=== PATIENT | female | born 1995 ===

== ENCOUNTER 2018-10-10 10:37 | Inpatient (IN) | payer OTHER, BC ==
[~2018-10-10] VITALS: Ht 157.5 cm; Wt 87.2 kg
[2018-10-10] MEDS ORDERED: BISA5TAB8 PO (12:02)
[2018-10-10] MEDS ORDERED: APIX2.5T PO (12:02)
[2018-10-10] MEDS ORDERED: ACET325T38 PO (12:02)
[2018-10-10] MEDS ORDERED: POLY17PO6 PO (12:02)
[2018-10-10] MEDS ORDERED: OXC5T PO (12:02)
[2018-10-10] MEDS ORDERED: DOCU-143 PO (12:02)
[2018-10-10] MEDS ORDERED: SENN-141 PO (12:02)
--- NOTE | 2018-10-10 12:04 | NUR ---
UPDATED MED REC WITH THE LIST OF MEDICATIONS ON THE INPATIENT PATIENT SUMMARY REPORT TUBED TO ME BY MAY. WILL UPDATE THE LIST TO WHAT THE PATIENT WAS TAKING AT HOME PRIOR TO BEING DISCHARGED FROM [facility] AT A LATER DATE FOR PROPER DISCHARGE TO HOME ORDERS. Addendum: 10/11/18 at 1123 by TERA CASTILLO [facility] I SET THE PROFILE TO NO MEDICATIONS AT THIS TIME. THERE IS NO EXT MED HX ON THE PATIENT. THE ORDERS FROM [facility] SIMPLY STATE ACTIVE MEDICATION LIST. IT IS UNCLEAR IF THEY WERE ALL NEWLY STARTED MEDICATIONS AT THAT VISIT OR IF ANY WERE CONTINUED FROM HOME BUT IT APPEARS MOST ARE OTC OR UNIQUE TO THIS RECENT ADMISSION.
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
[2018-10-10 14:50] VITALS: BP 126/82
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
[2018-10-10 17:18] VITALS: BP 126/82
[2018-10-10 18:00] VITALS: BP 121/82
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
[2018-10-10] MEDS: ACETAMINOPHEN 325 MG TABLET PO SCH ×2 (18:23→23:00)
[2018-10-10] MEDS: POLYETHYLENE GLYCOL 17 GM (MIRALAX) PACK PO SCH (20:43)
[2018-10-10] MEDS: DOCUSATE SODIUM 100 MG (COLACE) CAP PO SCH (20:47)
[2018-10-10] MEDS: APIXABAN 2.5 MG (ELIQUIS) TABLET PO SCH (20:47)
[2018-10-10] MEDS: SENNOSIDES 8.6 MG (SENOKOT) TAB PO SCH (20:48)
[2018-10-10] MEDS ORDERED: SENNOSIDES PO SCH (21:00)
[2018-10-10] MEDS ORDERED: NON-FORMULARY MEDICATION 1 EA EA (Polyethylene Glycol 3350 (Miralax) 17 GM) PO SCH (21:00)
[2018-10-11] MEDS: ACETAMINOPHEN 325 MG TABLET PO SCH ×3 (05:22→18:04)
[2018-10-11 06:19] VITALS: BP 109/72
[2018-10-11 06:45] LABS: BASOPHILS % (AUTO) 0 % (0-10); EOSINOPHILS # (AUTO) 0.2 10^3/uL (0.0-0.3); EOSINOPHILS % (AUTO) 3 % (0-10); HEMATOCRIT 33 % (35-52); LYMPHOCYTES # (AUTO) 2.1 X 10^3 (1.0-4.0); LYMPHOCYTES % (AUTO) 29 % (12-44); MEAN CORPUSCULAR HEMOGLOBIN 28 PG (25-34); MEAN CORPUSCULAR HGB CONC 34 G/DL (32-36); MEAN CORPUSCULAR VOLUME 85 FL (80-99); MEAN PLATELET VOLUME 9.7 FL (7.4-10.4); MONOCYTES # (AUTO) 0.5 X 10^3 (0.0-1.0); MONOCYTES % (AUTO) 8 % (0-12); NEUTROPHILS # (AUTO) 4.3 X 10^3 (1.8-7.8); NEUTROPHILS % (AUTO) 60 % (42-75); PLATELET COUNT 370 10^3/uL (130-400); RED CELL DISTRIBUTION WIDTH 13.3 % (10.0-14.5); WHITE BLOOD COUNT 7.1 10^3/uL (4.3-11.0)
[2018-10-11 07:08] LABS: ALANINE AMINOTRANSFERASE 32 U/L (0-55); ALBUMIN 3.4 GM/DL (3.2-4.5); ALKALINE PHOSPHATASE 62 U/L (40-136); BILIRUBIN,TOTAL 0.5 MG/DL (0.1-1.0); BUN/CREATININE RATIO 19; CALCIUM 8.8 MG/DL (8.5-10.1); CARBON DIOXIDE 18 MMOL/L (21-32); CHLORIDE 108 MMOL/L (98-107); CREATININE SERUM 0.59 MG/DL (0.60-1.30); GFR ESTIMATED > 60; GLUCOSE 83 MG/DL (70-105); POTASSIUM 4.1 MMOL/L (3.6-5.0); SODIUM 137 MMOL/L (135-145); TOTAL PROTEIN 6.3 GM/DL (6.4-8.2)
[2018-10-11] MEDS: SENNOSIDES 8.6 MG (SENOKOT) TAB PO SCH ×2 (09:00→21:05)
[2018-10-11] MEDS: POLYETHYLENE GLYCOL 17 GM (MIRALAX) PACK PO SCH ×2 (09:00→21:05)
[2018-10-11] MEDS: BISACODYL 5 MG (DULCOLAX) TABLET PO SCH (09:00)
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
--- NOTE | 2018-10-11 09:25 | Occupational Ther Daily Note ---
OT Current Status-Daily Note Subjective Pt seen in bed, awake and oriented. Pt stated did not sleep well due to positioning last night, stated no pain this morning. Pain increased to 5/10 when walking. Pt agreed to therapy OT tx. Mental Status/Objective Patient Orientation: Normal For Age Therapy Code Descriptions/Definitions Functional [place] Measure: 0=Not Assessed/NA 4=Minimal Assistance 1=Total Assistance 5=Supervision or Setup 2=Maximal Assistance 6=Modified [place] 3=Moderate Assistance 7=Complete [place] ADL-Treatment Pt completed shower at this date. Pt gathered clothing from bed, able to ambulate with SBA. Pt expressed concerns of open wounds, as bandages were removed before shower with instructions from nursing to cleanse with soap and water. Pt expressed wooziness toward open wounds, desiring for clothing to not touch wounds while doffing/ donning. Therapy Code Descriptions/Definitions Functional [place] Measure: 0=Not Assessed/NA 4=Minimal Assistance 1=Total Assistance 5=Supervision or Setup 2=Maximal Assistance 6=Modified [place] 3=Moderate Assistance 7=Complete [place] Therapy Quality Codes: 6 Independent with activity with or without an assistive device 5 Patient requires set up or clean up by helper. Patient completes activity by themselves 4 Supervision or touching assist (CGA). [place] provide cues , steadying assist 3 The helper provides less than half the effort to complete the activity 2 The helper provides more than half the effort to complete the activity 1 Dependent. The helper does all the effort to complete an activity 7 Patient refused to complete or attempt activity 9 The patient did not perform the activity before the current illness or injury 88 Not attempted due to Medical conditions or safety concerns Eating (FIM): 7 (Pt ate breakfast prior to OT session.) Eating (QC): 6 Bathing (FIM): 3 (Mod A for LE washing for thoroughness of wounds. Pt completed LE showeing utlizing long handled sponge.) Upper Body (FIM): 4 (Pt required min A for adjusting bra and gathering materials from sink.) Upper Body Dressing (QC): 3 Lower Body Dressing (FIM): 3 (Pt required mod A for donning LE dressing, utilized dressing stick and bellman for LE donning.) Lower Body Dressing (QC): 3 Toileting (FIM): 3 (required assist for LE dressing doffing) Toileting Hygiene (QC): 5 Transfers (B, C, W/C) (FIM): 5 (SBA for safety) Toilet/Commode Transfer (FIM): 5 (Required SBA during tx) Toilet Transfer (QC): 4 (SBA due to safety and c/o pain during waking) Tub Transfer(FIM): 4 (Pt required cueing and physical assist for L LE for safe transfer utilizing tub bench.) Other Treatment Pt educated on adaptive techniques for dressing, including the use of bellman and dressing stick for doffing/ donning LE clothing. Pt stated concern for wounds, requiring increased assist for LE dressing. Pt able to dry UB IND, required mod A for drying LE. Pt's nurse notified of shower completion, pt's nurse applied bandages to wounds prior to LE donning. Pt walked with FWW to chair, call light within reach. All needs met. Education OT Patient Education: Correct positioning, Energy conservation, Purpose of tx/functional activities, Reviewed precautions, Rehab process, Safety issues, Transfer techniques, Use of adapted equipment Teaching Recipient: Patient Teaching Methods: Demonstration, Discussion Response to Teaching: Verbalize Understanding, Return Demonstration (Pt educated on adaptive tequniques, demonstrating understanding but requiring increased assist due to wounds. Nursing notified of shower completion, wounds covered before donning LE dressing.) OT Short Term Goals Short Term Goals Eating(FIM): 7 Grooming(FIM): 6 Bathing(FIM): 4 Upper Body Dressing(FIM): 3 Lower Body Dressing(FIM): 3 Toileting(FIM): 4 Transfers (B,C,W/C) (FIM): 5 Toilet/Commode Transfer(FIM): 6 Tub Transfer(FIM): 5 Shower Transfer(FIM): 5 Additional Short Term Goals: 1-Demonstrate ADL Tasks, 2-Verbalize Understanding, 3-ImproveStrength/Tye 1=Demonstrate adherence to instructed precautions during ADL tasks. 2=Patient will verbalize/demonstrate understanding of assistive d evices/modifications for ADL. 3=Patient will improve strength/tolerance for activity to enable patient to perform ADL's. OT Fisheries Technical Officer Goals [facility] Goals Time Frame: Oct 31, 2018 Eating (FIM): 7 Eating (QC): 6 Groomin Oral Hygiene (QC): 6 Bathing(FIM): 7 Shower/Bathe Self (QC): 6 Upper Body Dressing(FIM): 7 Upper Body Dressing (QC): 6 Lower Body Dressing(FIM): 7 Lower Body Dressing (QC): 6 On/Off Footwear (QC): 6 Toileting(FIM): 7 Toileting Hygiene (QC): 6 Transfers (B,C,W/C) (FIM): 6 Toilet/Commode Transfer(FIM): 6 Toilet/Commode Transfer (QC): 6 Tub Transfer(FIM): 6 Shower Transfer(FIM): 6 Comprehension(FIM): 6 Expression (FIM): 6 Social Interaction(FIM): 6 Problem Solving(FIM): 6 Memory(FIM): 6 Additional Goals: 1-Demonstrate ADL Tasks, 2-Verbalize Understanding, 3- ImproveStrength/Tye 1=Demonstrate adherence to instructed precautions during ADL tasks. 2=Patient will verbalize/demonstrate understanding of assistive devices/modifications for ADL. 3=Patient will improve strength/tolerance for activity to enable patient to perform ADL's. OT Education/Plan Problem List/Assessment Assessment: Decreased Activ Tolerance, Impaired Bed Mobility, Impaired Coordination, Impaired Funct Balance, Impaired I ADL's, Impaired Self-Care Skills Pt presents will functional limitations affecting areas of ADLs and functional mobility with the above mentioned deficits. Pt will benefit from skilled OT services to increase independence with daily activities and safe transition to home. Discharge Recommendations Plan/Recommendations: Continue POC Therapy Discharge Recommendati: Other, See Comments Treatment Plan/Plan of Care Treatment,Training & Education: Yes Patient would benefit from OT for education, treatment and training to promote independence in ADL's, mobility, safety and/or upper extremity function for ADL's. Plan of Care: ADL Retraining, Caregiver Training, Functional Mobility, Group Exercise/Act as Ind, UE Funct Exercise/Act Treatment Duration: Oct 31, 2018 Frequency: At least 5 of 7 days/Wk (IRF) Estimated Hrs Per Day: 1 hour per day (60-90 minutes) Agreement: Yes Rehab Potential: Good Time/GCodes Start Time: 08:00 Stop Time: 09:15 Total Time Billed (hr/min): 45 Billed Treatment Time 1 ADL 75 SHIRLEY ARIAS OTR Oct 11, 2018 09:25
[2018-10-11] MEDS: APIXABAN 2.5 MG (ELIQUIS) TABLET PO SCH ×2 (09:31→21:04)
[2018-10-11] MEDS: DOCUSATE SODIUM 100 MG (COLACE) CAP PO SCH ×2 (09:31→21:04)
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
--- NOTE | 2018-10-11 13:04 | Occupational Ther Daily Note ---
OT Current Status-Daily Note Subjective Pt seen sitting in chair, 4/10 pain stated through back/ hip. Pt agreed to OT tx session focusing on laundry routine and AE for daily activities. Mental Status/Objective Patient Orientation: Normal For Age Therapy Code Descriptions/Definitions Functional [place] Measure: 0=Not Assessed/NA 4=Minimal Assistance 1=Total Assistance 5=Supervision or Setup 2=Maximal Assistance 6=Modified [place] 3=Moderate Assistance 7=Complete [place] ADL-Treatment Therapy Code Descriptions/Definitions Functional [place] Measure: 0=Not Assessed/NA 4=Minimal Assistance 1=Total Assistance 5=Supervision or Setup 2=Maximal Assistance 6=Modified [place] 3=Moderate Assistance 7=Complete [place] Therapy Quality Codes: 6 Independent with activity with or without an assistive device 5 Patient requires set up or clean up by helper. Patient completes activity by themselves 4 Supervision or touching assist (CGA). [place] provide cues , steadying assist 3 The helper provides less than half the effort to complete the activity 2 The helper provides more than half the effort to complete the activity 1 Dependent. The helper does all the effort to complete an activity 7 Patient refused to complete or attempt activity 9 The patient did not perform the activity before the current illness or injury 88 Not attempted due to Medical conditions or safety concerns Lower Body Dressing (FIM): 5 (Pt educated on sock sukhdev. Pt required min cues on process and completion to don socks. ) Lower Body Dressing (QC): 4 (Cues required for sock donning.) On/Off Footwear (QC): 4 (Cues for sock sukhdev) Other Treatment Pt gathered dirty clothing items with half section ironer, pt ambulated with FWW with SBA to laundry room. Pt completed washing machine prep and completion with min A for nozzles due to novelty of machine. Pt utilized FWW with good safety awareness to room, pt sat in chair with call light in reach. All needs met. Education OT Patient Education: Purpose of tx/functional activities, Safety issues, Use of adapted equipment Teaching Recipient: Patient Teaching Methods: Demonstration, Discussion Response to Teaching: Verbalize Understanding, Return Demonstration Pt completed with min verbal/ visual cues for sock donning. OT Short Term Goals Short Term Goals Eating(FIM): 7 Grooming(FIM): 6 Bathing(FIM): 4 Upper Body Dressing(FIM): 3 Lower Body Dressing(FIM): 3 Toileting(FIM): 4 Transfers (B,C,W/C) (FIM): 5 Toilet/Commode Transfer(FIM): 6 Tub Transfer(FIM): 5 Shower Transfer(FIM): 5 Additional Short Term Goals: 1-Demonstrate ADL Tasks, 2-Verbalize Understanding, 3-ImproveStrength/Tye 1=Demonstrate adherence to instructed precautions during ADL tasks. 2=Patient will verbalize/demonstrate understanding of assistive devices/modifications for ADL. 3=Patient will improve strength/tolerance for activity to enable patient to perform ADL's. OT Fdc Goals Investigator Utility Bill Complaints Goals Time Frame: Oct 31, 2018 Eating (FIM): 7 Eating (QC): 6 Groomin Oral Hygiene (QC): 6 Bathing(FIM): 7 Shower/Bathe Self (QC): 6 Upper Body Dressing(FIM): 7 Upper Body Dressing (QC): 6 Lower Body Dressing(FIM): 7 Lower Body Dressing (QC): 6 On/Off Footwear (QC): 6 Toileting(FIM): 7 Toileting Hygiene (QC): 6 Transfers (B,C,W/C) (FIM): 6 Toilet/Commode Transfer(FIM): 6 Toilet/Commode Transfer (QC): 6 Tub Transfer(FIM): 6 Shower Transfer(FIM): 6 Comprehension(FIM): 6 Expression (FIM): 6 Social Interaction(FIM): 6 Problem Solving(FIM): 6 Memory(FIM): 6 Additional Goals: 1-Demonstrate ADL Tasks, 2-Verbalize Understanding, 3- ImproveStrength/Tye 1=Demonstrate adherence to instructed precautions during ADL tasks. 2=Patient will verbalize/demonstrate understanding of assistive devices/modifications for ADL. 3=Patient will improve strength/tolerance for activity to enable patient to perform ADL's. OT Education/Plan Problem List/Assessment Assessment: Decreased Activ Tolerance, Impaired Funct Balance, Impaired I ADL's, Impaired Self-Care Skills Pt presents will functional limitations affecting areas of ADLs and functional mobility with the above mentioned deficits. Pt will benefit from skilled OT services to increase independence with daily activities and safe transition to home. Discharge Recommendations Plan/Recommendations: Continue POC Treatment Plan/Plan of Care Treatment,Training & Education: Yes Patient would benefit from OT for education, treatment and training to promote independence in ADL's, mobility, safety and/or upper extremity function for ADL's. Plan of Care: ADL Retraining, Caregiver Training, Functional Mobility, Group Exercise/Act as Ind, UE Funct Exercise/Act Treatment Duration: Oct 31, 2018 Frequency: At least 5 of 7 days/Wk (IRF) Estimated Hrs Per Day: 1 hour per day (60-90 minutes) Agreement: Yes Rehab Potential: Good Time/GCodes Start Time: 11:50 Stop Time: 12:15 Total Time Billed (hr/min): 25 Billed Treatment Time 1 ADL 10 FA 15 SHIRLEY ARIAS OTR Oct 11, 2018 13:04
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
--- NOTE | 2018-10-11 14:32 | Physical Therapy Daily Note ---
PT Daily Note-Current Subjective Agreeable to PT. No complaints. Transfers Therapy Code Descriptions/Definitions Functional [place] Measure: 0=Not Assessed/NA 4=Minimal Assistance 1=Total Assistance 5=Supervision or Setup 2=Maximal Assistance 6=Modified [place] 3=Moderate Assistance 7=Complete [place] Therapy Quality Codes: 6 Independent with activity with or without an assistive device 5 Patient requires set up or clean up by helper. Patient completes activity by themselves 4 Supervision or touching assist (CGA). [place] provide cues , steadying assist 3 The helper provides less than half the effort to complete the activity 2 The helper provides more than half the effort to complete the activity 1 Dependent. The helper does all the effort to complete an activity 7 Patient refused to complete or attempt activity 9 The patient did not perform the activity before the current illness or injury 88 Not attempted due to Medical conditions or safety concerns Weight Bearing Right Lower Extremity: Right Weight Bearing/Tolerated Left Lower Extremity: Left Weight Bearing/Tolerated Treatments Sit to stand x 4 reps with CGA with cues for sequencing. Pt ambulated 150 ft x 2 wih FWW with SB-CGA. Skilled cues for foot clearance and safety. Assessment Current Status: Good Progress PT Short Term Goals Short Term Goals Time Frame: Oct 18, 2018 Transfers (B,C,W/C) (FIM): 5 Gait (FIM): 4 Distance (FIM): 3=150 ft Gait Assistive Device: Cane Single Point PT [employer] Det[employer] Draftsperson Goals Nursing Home Goals PT Nursing Home Goals Time Frame: Oct 25, 2018 Transfers (B,C,W/C) (FIM): 7 Sit to Lying (QC): 6 Lying-Sitting on Side/Bed(QC): 6 Sit to Stand (QC): 6 Roll Left to Right (QC): 6 Chair/Rcw-em-Xstxh Xfer(QC): 6 Car Transfer (QC): 6 Does the Patient Walk: Yes Gait (FIM): 6 Gait distance (FIM): 3=150 ft Walk 10 feet (QC): 6 Walk 10ft-Uneven Surface(QC): 6 Walk 50ft with 2 Turns (QC): 6 Walk 150 ft (QC): 6 Gait Level of Assist: 6 Gait Assistive Device: Cane Single Point (or least restrictive safe device) Does the Pt use WC or Scooter?: No Stairs (FIM): 6 # of Steps: 12 1 Step (curb) (QC): 6 4 Steps (QC): 6 12 Steps (QC): 6 Picking up an Object (QC): 88 PT Plan Problem List Problem List: Activity Tolerance, Functional Strength, Safety Treatment/Plan Treatment Plan: Continue Plan of Care Treatment Plan: Bed Mobility, Education, Functional Activity Tye, Functional Strength, Group Therapy, Gait, Safety, Therapeutic Exercise, Transfers Treatment Duration: Oct 25, 2018 Frequency: At least 5 of 7 days/Wk (IRF) Estimated Hrs Per Day: 1.5 hours per day Patient and/or Family Agrees t: Yes Safety Risks/Education Patient Education: Transfer Techniques Teaching Recipient: Patient Teaching Methods: Discussion Response to Teaching: Return Demonstration Time/GCodes Time In: 1300 Time Out: 1320 Total Billed Treatment Time: 20 Total Billed Treatment visit GT 20 SUSY CURRAN PT Oct 11, 2018 14:31
[2018-10-11 17:32] VITALS: BP 123/80
--- NOTE | 2018-10-11 19:14 | NUR ---
bedside report received from GREG BO, assume care of pt
--- NOTE | 2018-10-11 21:00 | NUR ---
assessments & interventions completed, see assessments & interventions, up in the chair
--- NOTE | 2018-10-11 21:04 | NUR ---
refused neva & Jami, took Colace
[2018-10-12] MEDS: ACETAMINOPHEN 325 MG TABLET PO SCH ×5 (00:20→23:17)
--- NOTE | 2018-10-12 00:20 | NUR ---
scheduled Tylenol 650mg po given, pain level 6/10 on numeric scale
--- NOTE | 2018-10-12 00:55 | NUR ---
resting quietly in bed, pain level 0/10 on flacc scale
--- NOTE | 2018-10-12 06:00 | NUR ---
given scheduled Tylenol 650mg pain level 6/10 on numeric scale
--- NOTE | 2018-10-12 06:40 | NUR ---
rates pain level 2/10 on numeric scale
[2018-10-12 06:45] VITALS: BP 118/77
--- NOTE | 2018-10-12 07:14 | NUR ---
bedside report given to SAM BO
--- NOTE | 2018-10-12 08:28 | Occupational Ther Daily Note ---
OT Current Status-Daily Note Subjective Pt seen in chair, alert and finishing breakfast. Pt said better night's rest. Pt stated 5/10 pain in L leg during sit and during walking. Nursing notified. Pt agreed to OT tx session. Mental Status/Objective Patient Orientation: Normal For Age Therapy Code Descriptions/Definitions Functional [place] Measure: 0=Not Assessed/NA 4=Minimal Assistance 1=Total Assistance 5=Supervision or Setup 2=Maximal Assistance 6=Modified [place] 3=Moderate Assistance 7=Complete [place] ADL-Treatment Therapy Code Descriptions/Definitions Functional [place] Measure: 0=Not Assessed/NA 4=Minimal Assistance 1=Total Assistance 5=Supervision or Setup 2=Maximal Assistance 6=Modified [place] 3=Moderate Assistance 7=Complete [place] Therapy Quality Codes: 6 Independent with activity with or without an assistive device 5 Patient requires set up or clean up by helper. Patient completes activity by themselves 4 Supervision or touching assist (CGA). [place] provide cues , steadying assist 3 The helper provides less than half the effort to complete the activity 2 The helper provides more than half the effort to complete the activity 1 Dependent. The helper does all the effort to complete an activity 7 Patient refused to complete or attempt activity 9 The patient did not perform the activity before the current illness or injury 88 Not attempted due to Medical conditions or safety concerns Eating (FIM): 7 (Pt ordered and ate food with IND) Eating (QC): 6 Grooming (FIM): 7 (Pt gathered hair brush and brushed IND) Bathing (FIM): 4 (Pt required min A for LE/ kourtney area thoroughness) Upper Body (FIM): 5 (Pt completed UE dress with s/u.) Upper Body Dressing (QC): 5 (Pt completed with s/u) Lower Body Dressing (FIM): 2 (Pt required max A for threading BLE into pants due to tightness of pants. Pt completed undergarment donning with mod I with lathe winder.) Lower Body Dressing (QC): 2 Toileting (FIM): 3 (Pt required assist with BM hygiene) Toileting Hygiene (QC): 3 Transfers (B, C, W/C) (FIM): 5 (SBA with cues for safety/ proper techniques to maintain >90* hip flexion) Toilet/Commode Transfer (FIM): 5 (SBA and cues for precautions) Toilet Transfer (QC): 4 Other Treatment Pt completed sit to stand from chair using FWW. Pt stated pain while standing in L LE, a "stretch". Pt ambulated to bathroom, transfers with SBA due to pain and safety with cues for precautions. Pt left in room in chair, call light in reach, all needs met. Education OT Patient Education: Correct positioning, Energy conservation, Modified ADL techniques, Purpose of tx/functional activities, Reviewed precautions, Rehab process, Safety issues, Transfer techniques Teaching Recipient: Patient Teaching Methods: Demonstration, Discussion Response to Teaching: Verbalize Understanding, Return Demonstration Pt educated on sleeping routine and proper sit to stand techniques to maintain less than 90* hip flexion. Pt educated of back precautions, as pt was seen with L leg bend at ~120* toward chest. Pt demonstrated understanding verbally. OT Short Term Goals Short Term Goals Eating(FIM): 7 Grooming(FIM): 6 Bathing(FIM): 4 Upper Body Dressing(FIM): 3 Lower Body Dressing(FIM): 3 Toileting(FIM): 4 Transfers (B,C,W/C) (FIM): 5 Toilet/Commode Transfer(FIM): 6 Tub Transfer(FIM): 5 Shower Transfer(FIM): 5 Additional Short Term Goals: 1-Demonstrate ADL Tasks, 2-Verbalize Understanding, 3-ImproveStrength/Tye 1=Demonstrate adherence to instructed precautions during ADL tasks. 2=Patient will verbalize/demonstrate understanding of assistive devices/modifications for ADL. 3=Patient will improve strength/tolerance for activity to enable patient to perform ADL's. OT Alf Goals Alf Goals Time Frame: Oct 31, 2018 Eating (FIM): 7 Eating (QC): 6 Groomin Oral Hygiene (QC): 6 Bathing(FIM): 7 Shower/Bathe Self (QC): 6 Upper Body Dressing(FIM): 7 Upper Body Dressing (QC): 6 Lower Body Dressing(FIM): 7 Lower Body Dressing (QC): 6 On/Off Footwear (QC): 6 Toileting(FIM): 7 Toileting Hygiene (QC): 6 Transfers (B,C,W/C) (FIM): 6 Toilet/Commode Transfer(FIM): 6 Toilet/Commode Transfer (QC): 6 Tub Transfer(FIM): 6 Shower Transfer(FIM): 6 Comprehension(FIM): 6 Expression (FIM): 6 Social Interaction(FIM): 6 Problem Solving(FIM): 6 Memory(FIM): 6 Additional Goals: 1-Demonstrate ADL Tasks, 2-Verbalize Understanding, 3- ImproveStrength/Tye 1=Demonstrate adherence to instructed precautions during ADL tasks. 2=Patient will verbalize/demonstrate understanding of assistive devices/modifications for ADL. 3=Patient will improve strength/tolerance for activity to enable patient to perform ADL's. OT Education/Plan Problem List/Assessment Assessment: Decreased Activ Tolerance, Decreased UE Strength, Impaired Funct Balance, Impaired I ADL's, Impaired Self-Care Skills Pt presents will functional limitations affecting areas of ADLs and functional mobility with the above mentioned deficits. Pt will benefit from skilled OT services to increase independence with daily activities and safe transition to home. Discharge Recommendations Plan/Recommendations: Continue POC Treatment Plan/Plan of Care Treatment,Training & Education: Yes Patient would benefit from OT for education, treatment and training to promote independence in ADL's, mobility, safety and/or upper extremity function for ADL's. Plan of Care: ADL Retraining, Caregiver Training, Functional Mobility, Group Exercise/Act as Ind, UE Funct Exercise/Act Treatment Duration: Oct 31, 2018 Frequency: At least 5 of 7 days/Wk (IRF) Estimated Hrs Per Day: 1 hour per day (60-90 minutes) Agreement: Yes Rehab Potential: Good Time/GCodes Start Time: 07:50 Stop Time: 08:50 Total Time Billed (hr/min): 60 Billed Treatment Time 1 ADL 60 SHIRLEY ARIAS OTR Oct 12, 2018 08:28
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
[2018-10-12] MEDS: POLYETHYLENE GLYCOL 17 GM (MIRALAX) PACK PO SCH ×2 (10:23→20:25)
[2018-10-12] MEDS: DOCUSATE SODIUM 100 MG (COLACE) CAP PO SCH ×2 (10:24→20:24)
[2018-10-12] MEDS: SENNOSIDES 8.6 MG (SENOKOT) TAB PO SCH ×2 (10:24→20:25)
[2018-10-12] MEDS: APIXABAN 2.5 MG (ELIQUIS) TABLET PO SCH ×2 (10:24→20:25)
[2018-10-12] MEDS: BISACODYL 5 MG (DULCOLAX) TABLET PO SCH (10:30)
--- NOTE | 2018-10-12 10:58 | Physical Therapy Daily Note ---
PT Daily Note-Current Subjective Pt is agreeable to PT this date. Reports she feels more sore today, likely due to increased activity yesterday. Mental Status Patient Orientation: Person, Place, Time, Situation Transfers Therapy Code Descriptions/Definitions Functional [place] Measure: 0=Not Assessed/NA 4=Minimal Assistance 1=Total Assistance 5=Supervision or Setup 2=Maximal Assistance 6=Modified [place] 3=Moderate Assistance 7=Complete [place] Therapy Quality Codes: 6 Independent with activity with or without an assistive device 5 Patient requires set up or clean up by helper. Patient completes activity by themselves 4 Supervision or touching assist (CGA). [place] provide cues , steadying assist 3 The helper provides less than half the effort to complete the activity 2 The helper provides more than half the effort to complete the activity 1 Dependent. The helper does all the effort to complete an activity 7 Patient refused to complete or attempt activity 9 The patient did not perform the activity before the current illness or injury 88 Not attempted due to Medical conditions or safety concerns Transfers (B, C, W/C) (FIM): 4 (CGA with sit to stand for safety. ) Sit to/from Stand: 4 Weight Bearing Right Lower Extremity: Right Weight Bearing/Tolerated Left Lower Extremity: Left Weight Bearing/Tolerated Gait Training Does the Patient Walk?: Yes Gait (FIM): 4 (CGA for safety; skilled cues for step length and heel toe pattern) Distance (FIM): 3=150 ft Distance: 150 ft x 2; 50 ft x 2 Gait Assistive Device: FWW Gait is slow with decreased step length, tending to step to with the right LE; in addition, she has diminished heel strike / toe off bilaterally; provided education and demonstration on how to improve; pt able to correct somewhat with cuing but is limited by soreness in the pelvic region. Pt's gait is very slow and she requires standing rest breaks. Exercises Seated reciprocal U/LE ROM and functional strenghening x 15 minutes to promote LE ROM (in a painfree manner) as well as promote functional activity tolerance for progression to increased mobility. Neuromuscular Standing static and dynamic functional balance training with education on safety and techniques to reduce episodes of LOB. Assessment Current Status: Good Progress Progressing well. Pt follows cues and corrects. Tolerance to mobility and activity continue to progress; although increased soreness this date due to increased activity yesterday. PT Short Term Goals Short Term Goals Time Frame: Oct 18, 2018 Transfers (B,C,W/C) (FIM): 5 Gait (FIM): 4 Distance (FIM): 3=150 ft Gait Assistive Device: Cane Single Point PT Senior Care Goals Dictating Transcribing Machine Servicer Goals PT Dictating Transcribing Machine Servicer Goals Time Frame: Oct 25, 2018 Transfers (B,C,W/C) (FIM): 7 Sit to Lying (QC): 6 Lying-Sitting on Side/Bed(QC): 6 Sit to Stand (QC): 6 Roll Left to Right (QC): 6 Chair/Ava-rr-Kygdr Xfer(QC): 6 Car Transfer (QC): 6 Does the Patient Walk: Yes Gait (FIM): 6 Gait distance (FIM): 3=150 ft Walk 10 feet (QC): 6 Walk 10ft-Uneven Surface(QC): 6 Walk 50ft with 2 Turns (QC): 6 Walk 150 ft (QC): 6 Gait Level of Assist: 6 Gait Assistive Device: Cane Single Point (or least restrictive safe device) Does the Pt use WC or Scooter?: No Stairs (FIM): 6 # of Steps: 12 1 Step (curb) (QC): 6 4 Steps (QC): 6 12 Steps (QC): 6 Picking up an Object (QC): 88 PT Plan Problem List Problem List: Activity Tolerance, Functional Strength, Safety, Balance, Gait, Transfer, Bed Mobility Treatment/Plan Treatment Plan: Continue Plan of Care Treatment Plan: Bed Mobility, Education, Functional Activity Tye, Functional Strength, Group Therapy, Gait, Safety, Therapeutic Exercise, Transfers Treatment Duration: Oct 25, 2018 Frequency: At least 5 of 7 days/Wk (IRF) Estimated Hrs Per Day: 1.5 hours per day Patient and/or Family Agrees t: Yes Safety Risks/Education Patient Education: Gait Training Teaching Recipient: Patient Teaching Methods: Demonstration, Discussion Response to Teaching: Return Demonstration, Reinforcement Needed Time/GCodes Time In: 900 Time Out: 1000 Total Billed Treatment Time: 60 Total Billed Treatment visit GT 30 EX 15 NM 15 SUSY CURRAN PT Oct 12, 2018 10:58
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
--- NOTE | 2018-10-12 14:42 | Therapy Group Daily Note ---
Therapy Daily Group Note Patient Education Topic Home Safety, Fall Prevention, Home Safety, Exercises, ADL Exercises LE Seated Exercise, UE Exercise Session Ratio (pt:therapist): 4:1 Goal of Session: Education on ARU Expectations, Energy Conservation Tech., Home Safety Strategies, UE/LE Strengthing, Safety with Transfers Goal Met for this Session: Yes Pt Benefit of Group: Contributions to Others, F/U Use of Strategies @Home, Increased Functional Safety, Increased Functional Strength, Improved Cognition, Recognition of Peers, Socialization Other/Notes Pt ambulated with FWW to [facility] area for OT group. Group consisted of introductions (name and first car driven), socialization, home safety, and ARU expectations. Pt introduced self appropriately and actively listened to peers. Pt acknowledged understanding of educational topics of home safety consisting of Jeopardy game with categories on fall prevention, kitchen safety, bathroom safety, home modifications and home service advisor. pt engaged in session by listing appropriate answers to the question and providing discussion on ways they stay safe in their own house. Pt completed UE/LE exercises within group session. Pt listed one thing learned in today's group session. After therapy, pt seated in recliner with call light/phone in reach. All needs met in room. Start Time: 13:00 Stop Time: 14:15 Total Billed Treatment Time: 75 Total Billed Treatment 1, GRP MIRI LYMAN OT Oct 12, 2018 14:42
--- NOTE | 2018-10-12 15:44 | NUR ---
OPTICAL MANAGER spoke with patient's work comp heel caser, Salena. She requests therapy evaluations be sent today and team conference evaluation following meet on 10/17.
--- NOTE | 2018-10-12 16:24 | Diagnostic Imaging Report ---
PROCEDURE: US left lower extremity venous. TECHNIQUE: Multiple real-time grayscale images were obtained over the left lower extremity in various projections. Additional duplex Doppler and color Doppler images were also obtained. INDICATION: Left leg swelling and pain. FINDINGS: Superficial and deep venous system throughout the left leg showed normal color flow, normal compressibility, and normal waveforms. There was no deep or superficial venous thrombus demonstrated. No mass or fluid collection documented. IMPRESSION: Normal negative unilateral left lower extremity venous Doppler and ultrasound exam. Dictated by: Dictated on workstation # [id number]
[2018-10-12 17:05] VITALS: BP 111/70
[2018-10-13 05:48] VITALS: BP 102/66
[2018-10-13] MEDS: ACETAMINOPHEN 325 MG TABLET PO SCH ×3 (06:23→18:20)
--- NOTE | 2018-10-13 09:00 | NUR ---
STATES TYLENOL ADEQUATELY CONTROLLING LOW BACK AND LEFT HIP PAIN. STATES PREVIOUS IV INFILTRATE IN LEFT AC IS IMPROVING. OFFERED TO GET KPAD, BUT PATIENT DOES NOT FEEL SHE NEEDS IT.
[2018-10-13] MEDS: BISACODYL 5 MG (DULCOLAX) TABLET PO SCH (09:13)
[2018-10-13] MEDS: APIXABAN 2.5 MG (ELIQUIS) TABLET PO SCH ×2 (09:13→20:52)
[2018-10-13] MEDS: DOCUSATE SODIUM 100 MG (COLACE) CAP PO SCH ×2 (09:14→20:52)
[2018-10-13] MEDS: SENNOSIDES 8.6 MG (SENOKOT) TAB PO SCH ×2 (09:14→20:53)
[2018-10-13] MEDS: POLYETHYLENE GLYCOL 17 GM (MIRALAX) PACK PO SCH ×2 (09:14→20:53)
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
--- NOTE | 2018-10-13 12:26 | Physical Therapy Daily Note ---
PT Daily Note-Current Subjective Pain rated 5/10 (L) hip and LB. AGreeable. Transfers Therapy Code Descriptions/Definitions Functional [place] Measure: 0=Not Assessed/NA 4=Minimal Assistance 1=Total Assistance 5=Supervision or Setup 2=Maximal Assistance 6=Modified [place] 3=Moderate Assistance 7=Complete [place] Therapy Quality Codes: 6 Independent with activity with or without an assistive device 5 Patient requires set up or clean up by helper. Patient completes activity by themselves 4 Supervision or touching assist (CGA). [place] provide cues , steadying assist 3 The helper provides less than half the effort to complete the activity 2 The helper provides more than half the effort to complete the activity 1 Dependent. The helper does all the effort to complete an activity 7 Patient refused to complete or attempt activity 9 The patient did not perform the activity before the current illness or injury 88 Not attempted due to Medical conditions or safety concerns Weight Bearing Right Lower Extremity: Right Weight Bearing/Tolerated Left Lower Extremity: Left Weight Bearing/Tolerated Treatments Pt donned brace with min A. Assist to upright recliner. Pt stood, CGA. Pt amb with FWW and slow steady gait x 120ft. Back to recliner, sitting comfortably with all needs met/call light in reach. Friends present from out of town. No further treatment. Assessment Current Status: Good Progress PT fred well. Steady gait, steady balance throughout. Limited by pain (L) LE and hip. Pt resting with all needs met. PT Short Term Goals Short Term Goals Time Frame: Oct 18, 2018 Transfers (B,C,W/C) (FIM): 5 Gait (FIM): 4 Distance (FIM): 3=150 ft Gait Assistive Device: Cane Single Point PT Trade Recruiter Goals Trade Recruiter Goals PT Trade Recruiter Goals Time Frame: Oct 25, 2018 Transfers (B,C,W/C) (FIM): 7 Sit to Lying (QC): 6 Lying-Sitting on Side/Bed(QC): 6 Sit to Stand (QC): 6 Roll Left to Right (QC): 6 Chair/Yvc-pr-Iorax Xfer(QC): 6 Car Transfer (QC): 6 Does the Patient Walk: Yes Gait (FIM): 6 Gait distance (FIM): 3=150 ft Walk 10 feet (QC): 6 Walk 10ft-Uneven Surface(QC): 6 Walk 50ft with 2 Turns (QC): 6 Walk 150 ft (QC): 6 Gait Level of Assist: 6 Gait Assistive Device: Cane Single Point (or least restrictive safe device) Does the Pt use WC or Scooter?: No Stairs (FIM): 6 # of Steps: 12 1 Step (curb) (QC): 6 4 Steps (QC): 6 12 Steps (QC): 6 Picking up an Object (QC): 88 PT Plan Treatment/Plan Treatment Plan: Continue Plan of Care Treatment Plan: Bed Mobility, Education, Functional Activity Tye, Functional Strength, Group Therapy, Gait, Safety, Therapeutic Exercise, Transfers Treatment Duration: Oct 25, 2018 Frequency: At least 5 of 7 days/Wk (IRF) Estimated Hrs Per Day: 1.5 hours per day Patient and/or Family Agrees t: Yes Time/GCodes Time In: 1100 Time Out: 1115 Total Billed Treatment Time: 15 Total Billed Treatment 1, gait 15min [id number] FAIR CPTA Oct 13, 2018 12:26
[2018-10-13 19:28] VITALS: BP 109/73
[2018-10-14] MEDS: ACETAMINOPHEN 325 MG TABLET PO SCH ×5 (00:58→23:17)
[2018-10-14 05:45] VITALS: BP 113/74
[2018-10-14] MEDS: DOCUSATE SODIUM 100 MG (COLACE) CAP PO SCH ×2 (10:03→21:36)
[2018-10-14] MEDS: APIXABAN 2.5 MG (ELIQUIS) TABLET PO SCH ×2 (10:03→21:36)
[2018-10-14] MEDS: POLYETHYLENE GLYCOL 17 GM (MIRALAX) PACK PO SCH ×2 (10:05→21:36)
[2018-10-14] MEDS: BISACODYL 5 MG (DULCOLAX) TABLET PO SCH (10:05)
[2018-10-14] MEDS: SENNOSIDES 8.6 MG (SENOKOT) TAB PO SCH ×2 (10:05→21:36)
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
[2018-10-14 17:00] VITALS: BP 111/73
[2018-10-15] MEDS: ACETAMINOPHEN 325 MG TABLET PO SCH ×4 (05:35→23:20)
[2018-10-15 05:40] VITALS: BP 97/63
[2018-10-15 07:52] LABS: BASOPHILS % (AUTO) 0 % (0-10); EOSINOPHILS # (AUTO) 0.5 10^3/uL (0.0-0.3); EOSINOPHILS % (AUTO) 6 % (0-10); HEMATOCRIT 35 % (35-52); HEMOGLOBIN 11.5 G/DL (11.5-16.0); LYMPHOCYTES # (AUTO) 2.8 X 10^3 (1.0-4.0); LYMPHOCYTES % (AUTO) 36 % (12-44); MEAN CORPUSCULAR HEMOGLOBIN 28 PG (25-34); MEAN CORPUSCULAR HGB CONC 33 G/DL (32-36); MEAN CORPUSCULAR VOLUME 85 FL (80-99); MEAN PLATELET VOLUME 9.6 FL (7.4-10.4); MONOCYTES # (AUTO) 0.4 X 10^3 (0.0-1.0); MONOCYTES % (AUTO) 6 % (0-12); NEUTROPHILS % (AUTO) 52 % (42-75); PLATELET COUNT 517 10^3/uL (130-400); RED CELL DISTRIBUTION WIDTH 13.3 % (10.0-14.5); WHITE BLOOD COUNT 7.7 10^3/uL (4.3-11.0)
[2018-10-15 08:18] LABS: ALANINE AMINOTRANSFERASE 26 U/L (0-55); ALBUMIN 3.8 GM/DL (3.2-4.5); ALKALINE PHOSPHATASE 151 U/L (40-136); BILIRUBIN,TOTAL 0.2 MG/DL (0.1-1.0); BUN/CREATININE RATIO 16; CALCIUM 9.1 MG/DL (8.5-10.1); CARBON DIOXIDE 22 MMOL/L (21-32); CHLORIDE 108 MMOL/L (98-107); CREATININE SERUM 0.61 MG/DL (0.60-1.30); GFR ESTIMATED > 60; GLUCOSE 85 MG/DL (70-105); POTASSIUM 3.8 MMOL/L (3.6-5.0); SODIUM 138 MMOL/L (135-145)
[2018-10-15] MEDS: APIXABAN 2.5 MG (ELIQUIS) TABLET PO SCH ×2 (09:12→20:52)
[2018-10-15] MEDS: POLYETHYLENE GLYCOL 17 GM (MIRALAX) PACK PO SCH ×2 (09:12→20:52)
[2018-10-15] MEDS: DOCUSATE SODIUM 100 MG (COLACE) CAP PO SCH ×2 (09:12→20:52)
[2018-10-15] MEDS: BISACODYL 5 MG (DULCOLAX) TABLET PO SCH (09:12)
[2018-10-15] MEDS: SENNOSIDES 8.6 MG (SENOKOT) TAB PO SCH ×2 (09:12→20:52)
--- NOTE | 2018-10-15 10:03 | Occupational Ther Daily Note ---
OT Current Status-Daily Note Subjective Pt seen asleep in bed. When awake, pt stated pain 3/10. Pt agreeable to OT tx session. Mental Status/Objective Patient Orientation: Normal For Age Therapy Code Descriptions/Definitions Functional [place] Measure: 0=Not Assessed/NA 4=Minimal Assistance 1=Total Assistance 5=Supervision or Setup 2=Maximal Assistance 6=Modified [place] 3=Moderate Assistance 7=Complete [place] ADL-Treatment Therapy Code Descriptions/Definitions Functional [place] Measure: 0=Not Assessed/NA 4=Minimal Assistance 1=Total Assistance 5=Supervision or Setup 2=Maximal Assistance 6=Modified [place] 3=Moderate Assistance 7=Complete [place] Therapy Quality Codes: 6 Independent with activity with or without an assistive device 5 Patient requires set up or clean up by helper. Patient completes activity by themselves 4 Supervision or touching assist (CGA). [place] provide cues , steadying assist 3 The helper provides less than half the effort to complete the activity 2 The helper provides more than half the effort to complete the activity 1 Dependent. The helper does all the effort to complete an activity 7 Patient refused to complete or attempt activity 9 The patient did not perform the activity before the current illness or injury 88 Not attempted due to Medical conditions or safety concerns Eating (FIM): 7 Eating (QC): 6 Grooming (FIM): 5 (s/u for oral hygiene and wash cloth) Oral Hygiene (QC): 5 Bathing (FIM): 4 (Required assist with gathering soap from ledge. Shower head cayden during hair washing task. ) Shower/Bathe Self (QC): 4 Upper Body (FIM): 5 (S/u) Upper Body Dressing (QC): 5 Lower Body Dressing (FIM): 3 (Pt required assist threading BLE) Lower Body Dressing (QC): 3 On/Off Footwear (QC): 6 (mod I wiht dressing stick) Toileting (FIM): 5 (supervision) Toileting Hygiene (QC): 7 (IND) Transfers (B, C, W/C) (FIM): 4 (assist with L LE during bed mobility) Toilet/Commode Transfer (FIM): 6 (mod I with use of FWW) Toilet Transfer (QC): 6 Tub Transfer(FIM): 4 (Assist with L LE) Shower Transfer(FIM): 3 Other Treatment Friend present at this date. Friend gathered clothing items per pt request. Pt completed ADL tasks with AE. Pt washed hair on this date requiring assist for shower head placement. Pt able to cleanse kourtney area with IND. Pt completed drying all but LE. Pt dressed in shower on tub bench, completing LE with min A due to tightness of pants. Pt able to step out of shower with SBA to FWW. Pt completed oral hygiene and sat in chair at end of session. All needs met. Education OT Patient Education: Correct positioning, Energy conservation, Exercise program Teaching Recipient: Patient Teaching Methods: Demonstration, Discussion Response to Teaching: Verbalize Understanding, Return Demonstration Pt educated on proper turning techniques to reduce twist of spine. OT Short Term Goals Short Term Goals Eating(FIM): 7 Grooming(FIM): 6 Bathing(FIM): 4 Upper Body Dressing(FIM): 3 Lower Body Dressing(FIM): 3 Toileting(FIM): 4 Transfers (B,C,W/C) (FIM): 5 Toilet/Commode Transfer(FIM): 6 Tub Transfer(FIM): 5 Shower Transfer(FIM): 5 Additional Short Term Goals: 1-Demonstrate ADL Tasks, 2-Verbalize Understanding, 3-ImproveStrength/Tye 1=Demonstrate adherence to instructed precautions during ADL tasks. 2=Patient will verbalize/demonstrate understanding of assistive devices/modifications for ADL. 3=Patient will improve strength/tolerance for activity to enable patient to perform ADL's. OT Combat Systems Operator Mine Warfare Goals Combat Systems Operator Mine Warfare Goals Time Frame: Oct 31, 2018 Eating (FIM): 7 Eating (QC): 6 Groomin Oral Hygiene (QC): 6 Bathing(FIM): 7 Shower/Bathe Self (QC): 6 Upper Body Dressing(FIM): 7 Upper Body Dressing (QC): 6 Lower Body Dressing(FIM): 7 Lower Body Dressing (QC): 6 On/Off Footwear (QC): 6 Toileting(FIM): 7 Toileting Hygiene (QC): 6 Transfers (B,C,W/C) (FIM): 6 Toilet/Commode Transfer(FIM): 6 Toilet/Commode Transfer (QC): 6 Tub Transfer(FIM): 6 Shower Transfer(FIM): 6 Comprehension(FIM): 6 Expression (FIM): 6 Social Interaction(FIM): 6 Problem Solving(FIM): 6 Memory(FIM): 6 Additional Goals: 1-Demonstrate ADL Tasks, 2-Verbalize Understanding, 3- ImproveStrength/Tye 1=Demonstrate adherence to instructed precautions during ADL tasks. 2=Patient will verbalize/demonstrate understanding of assistive devices/modifications for ADL. 3=Patient will improve strength/tolerance for activity to enable patient to perform ADL's. OT Education/Plan Problem List/Assessment Assessment: Decreased Activ Tolerance, Impaired I ADL's, Impaired Self-Care Skills, Restricted Funct UE ROM Pt presents will functional limitations affecting areas of ADLs and functional mobility with the above mentioned deficits. Pt will benefit from skilled OT services to increase independence with daily activities and safe transition to home. Discharge Recommendations Plan/Recommendations: Continue POC Treatment Plan/Plan of Care Treatment,Training & Education: Yes Patient would benefit from OT for education, treatment and training to promote independence in ADL's, mobility, safety and/or upper extremity function for ADL's. Plan of Care: ADL Retraining, Caregiver Training, Functional Mobility, Group Exercise/Act as Ind, UE Funct Exercise/Act Treatment Duration: Oct 31, 2018 Frequency: At least 5 of 7 days/Wk (IRF) Estimated Hrs Per Day: 1 hour per day (60-90 minutes) Agreement: Yes Rehab Potential: Good Time/GCodes Start Time: 07:50 Stop Time: 08:55 Total Time Billed (hr/min): 65 Billed Treatment Time 1 ADL 65 (4 units) SHIRLEY ARIAS OTR Oct 15, 2018 10:03
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
--- NOTE | 2018-10-15 12:00 | Physical Therapy Daily Note ---
PT Daily Note-Current Subjective Pt up in chair, agreeable to participate with PT. Pain not rated but reports pelvic pain and (L) ankle pain. Pt requests to attempt mobility without TLSO, reported no increase in pain without it post treatment. Mental Status Patient Orientation: Person, Place, Time, Situation Transfers Therapy Code Descriptions/Definitions Functional [place] Measure: 0=Not Assessed/NA 4=Minimal Assistance 1=Total Assistance 5=Supervision or Setup 2=Maximal Assistance 6=Modified [place] 3=Moderate Assistance 7=Complete [place] Therapy Quality Codes: 6 Independent with activity with or without an assistive device 5 Patient requires set up or clean up by helper. Patient completes activity by themselves 4 Supervision or touching assist (CGA). [place] provide cues , steadying assist 3 The helper provides less than half the effort to complete the activity 2 The helper provides more than half the effort to complete the activity 1 Dependent. The helper does all the effort to complete an activity 7 Patient refused to complete or attempt activity 9 The patient did not perform the activity before the current illness or injury 88 Not attempted due to Medical conditions or safety concerns Sit to/from Stand: 6 Sit to Stand (QC): 6 Weight Bearing Right Lower Extremity: Right Weight Bearing/Tolerated Left Lower Extremity: Left Weight Bearing/Tolerated Gait Training Does the Patient Walk?: Yes Gait (FIM): 5 Distance (FIM): 3=150 ft Distance: 200 Walk 10 feet (QC): 5 Walk 50 ft with 2 Turns(QC): 5 Gait Level of Assist: 5 Gait Persons Needed: 1 Gait Assistive Device: FWW Pt ambulates with very slow, step-through gait with decreased WB on (L) LE. VCS to shorten step-length on (L) to improve equal step length, decrease stance time on (L). Multiple brief standing rest breaks to rest UEs. Exercises Seated Therapy Exercises: Long arc quads, Hip abd/add (adduction with pillow) Seated Reps: 20 NuStep Minutes: 15 NuStep Workload: 4 Treatments Functional activity, ambulation with FWW, NuStep/ther ex for functional strengthening, activity tolerance. Pt SBA for toilet transfer, mod A x 1 for korutney-care (Pt is able to don/doff pants, requests assist to wipe as she reports she is unable to reach due to pain). Pt returned to up in chair post treatment. Assessment Current Status: Good Progress Pt continues to rely heavily on FWW but demonstrates safe gait, decreased recovery breaks required with gait. PT Short Term Goals Short Term Goals Time Frame: Oct 18, 2018 Transfers (B,C,W/C) (FIM): 5 Gait (FIM): 4 Distance (FIM): 3=150 ft Gait Assistive Device: Cane Single Point PT Residential Goals Irrigator Head Goals PT Irrigator Head Goals Time Frame: Oct 25, 2018 Transfers (B,C,W/C) (FIM): 7 Sit to Lying (QC): 6 Lying-Sitting on Side/Bed(QC): 6 Sit to Stand (QC): 6 Roll Left to Right (QC): 6 Chair/Ksx-ey-Irvmn Xfer(QC): 6 Car Transfer (QC): 6 Does the Patient Walk: Yes Gait (FIM): 6 Gait distance (FIM): 3=150 ft Walk 10 feet (QC): 6 Walk 10ft-Uneven Surface(QC): 6 Walk 50ft with 2 Turns (QC): 6 Walk 150 ft (QC): 6 Gait Level of Assist: 6 Gait Assistive Device: Cane Single Point (or least restrictive safe device) Does the Pt use WC or Scooter?: No Stairs (FIM): 6 # of Steps: 12 1 Step (curb) (QC): 6 4 Steps (QC): 6 12 Steps (QC): 6 Picking up an Object (QC): 88 PT Plan Problem List Problem List: Activity Tolerance, Functional Strength, Safety, Balance, Gait, Transfer, Bed Mobility, ROM Treatment/Plan Treatment Plan: Continue Plan of Care Treatment Plan: Bed Mobility, Education, Functional Activity Tye, Functional Strength, Group Therapy, Gait, Safety, Therapeutic Exercise, Transfers Treatment Duration: Oct 25, 2018 Frequency: At least 5 of 7 days/Wk (IRF) Estimated Hrs Per Day: 1.5 hours per day Patient and/or Family Agrees t: Yes Time/GCodes Time In: 1102 Time Out: 1202 Total Billed Treatment Time: 60 Total Billed Treatment 1, Ex x 20', FA x 40' PEDRO CINTRON DPT Oct 15, 2018 12:00
--- NOTE | 2018-10-15 14:20 | Therapy Group Daily Note ---
Therapy Daily Group Note Patient Education Topic Home Safety, Energy Cons, Exercises Exercises LE Seated Exercise, LE Standing Exercise, ROM, Stretching, UE Exercise Session Ratio (pt:therapist): 3:1 Goal of Session: Education on ARU Expectations, Energy Conservation Tech., UE/LE Strengthing Goal Met for this Session: Yes Pt Benefit of Group: Contributions to Others, F/U Use of Strategies @Home, Increased Functional Safety, Increased Functional Strength, Improved Cognition, Recognition of Peers Other/Notes Pt ambulated to [facility] for OT group. Group consisted of introductions (name, place living, and first job), socialization,purpose of exercises, and ARU expectations. Pt introduced self appropriately and actively listened to peers. Pt acknowledged understanding of educational topics exercises. pt given 2 dice to roll for sets and reps of exercises. pt given card with ex written on it and instructed group on how to perform ex. pt perform mixture of UE/ LE exercises to increase overall strength for daily activities.. After therapy, pt lying in bed with call light/phone in reach. All needs met in room. Start Time: 12:40 Stop Time: 13:50 Total Billed Treatment GRP 70 minutes JOANNA MALDONADO OT Oct 15, 2018 14:20
[2018-10-15 17:00] VITALS: BP 113/76
[2018-10-16] MEDS: ACETAMINOPHEN 325 MG TABLET PO SCH ×3 (06:20→17:00)
[2018-10-16 06:27] VITALS: BP 111/72
[2018-10-16] MEDS: APIXABAN 2.5 MG (ELIQUIS) TABLET PO SCH ×2 (08:19→21:17)
[2018-10-16] MEDS: DOCUSATE SODIUM 100 MG (COLACE) CAP PO SCH ×2 (08:20→16:23)
[2018-10-16] MEDS: SENNOSIDES 8.6 MG (SENOKOT) TAB PO SCH ×2 (08:20→16:23)
[2018-10-16] MEDS: BISACODYL 5 MG (DULCOLAX) TABLET PO SCH ×2 (08:20→16:23)
[2018-10-16] MEDS: POLYETHYLENE GLYCOL 17 GM (MIRALAX) PACK PO SCH ×2 (08:20→16:23)
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
--- NOTE | 2018-10-16 12:07 | Physical Therapy Daily Note ---
PT Daily Note-Current Subjective Pt sitting in recliner upon arrival. Pt agrees to PT but reports pain in L foot at wound site experiences pain when standing on it to advance R LE, Nurse is advised. Pain Numeric Pain Scale: 7 Location: Left Location Body Site: Foot Pain Description: Ache, Tightness Mental Status Patient Orientation: Person, Place, Time, Situation Transfers Therapy Code Descriptions/Definitions Functional [place] Measure: 0=Not Assessed/NA 4=Minimal Assistance 1=Total Assistance 5=Supervision or Setup 2=Maximal Assistance 6=Modified [place] 3=Moderate Assistance 7=Complete [place] Therapy Quality Codes: 6 Independent with activity with or without an assistive device 5 Patient requires set up or clean up by helper. Patient completes activity by themselves 4 Supervision or touching assist (CGA). [place] provide cues , steadying assist 3 The helper provides less than half the effort to complete the activity 2 The helper provides more than half the effort to complete the activity 1 Dependent. The helper does all the effort to complete an activity 7 Patient refused to complete or attempt activity 9 The patient did not perform the activity before the current illness or injury 88 Not attempted due to Medical conditions or safety concerns Scootin Sit to/from Stand: 5 Sit to Stand (QC): 5 Weight Bearing Right Lower Extremity: Right Weight Bearing/Tolerated Left Lower Extremity: Left Weight Bearing/Tolerated Gait Training Does the Patient Walk?: Yes Gait (FIM): 5 Distance (FIM): 3=150 ft Distance: 200' Walk 10 feet (QC): 5 Walk 50 ft with 2 Turns(QC): 5 Walk 150 ft (QC): 5 Gait Level of Assist: 5 Gait Persons Needed: 1 Gait Assistive Device: FWW Pt walks with slow moira, antalgic gait. Wheelchair Training Does the Pt Use a Wheelchair?: No Exercises NuStep Minutes: 10 NuStep Workload: 4 Treatments Pt transfers from recliner to standing. Pt ambulates in hallway towards Therapy Gym. Pt uses NuStep for 10m at WL 4 then OT arrives for finish of earlier tx. Pt will see SPINE NURSE for tx again in pm. Assessment Current Status: Good Progress Pt's pain limits mobility and some participation with activity. PT Short Term Goals Short Term Goals Time Frame: Oct 18, 2018 Transfers (B,C,W/C) (FIM): 5 Gait (FIM): 4 Distance (FIM): 3=150 ft Gait Assistive Device: Cane Single Point PT Customs Consultant Goals Customs Consultant Goals PT Skilled Nursing Goals Time Frame: Oct 25, 2018 Transfers (B,C,W/C) (FIM): 7 Sit to Lying (QC): 6 Lying-Sitting on Side/Bed(QC): 6 Sit to Stand (QC): 6 Roll Left to Right (QC): 6 Chair/Vyk-od-Bwvfu Xfer(QC): 6 Car Transfer (QC): 6 Does the Patient Walk: Yes Gait (FIM): 6 Gait distance (FIM): 3=150 ft Walk 10 feet (QC): 6 Walk 10ft-Uneven Surface(QC): 6 Walk 50ft with 2 Turns (QC): 6 Walk 150 ft (QC): 6 Gait Level of Assist: 6 Gait Assistive Device: Cane Single Point (or least restrictive safe device) Does the Pt use WC or Scooter?: No Stairs (FIM): 6 # of Steps: 12 1 Step (curb) (QC): 6 4 Steps (QC): 6 12 Steps (QC): 6 Picking up an Object (QC): 88 PT Plan Problem List Problem List: Activity Tolerance, Functional Strength, Gait Treatment/Plan Treatment Plan: Continue Plan of Care Treatment Plan: Bed Mobility, Education, Functional Activity Tye, Functional Strength, Group Therapy, Gait, Safety, Therapeutic Exercise, Transfers Treatment Duration: Oct 25, 2018 Frequency: At least 5 of 7 days/Wk (IRF) Estimated Hrs Per Day: 1.5 hours per day Patient and/or Family Agrees t: Yes Safety Risks/Education Patient Education: Gait Training, Correct Positioning, Safety Issues Teaching Recipient: Patient Teaching Methods: Discussion Response to Teaching: Verbalize Understanding Time/GCodes Time In: 1030 Time Out: 1100 Total Billed Treatment Time: 30 Total Billed Treatment 1, GT (20m) & EX (10m) DAVEY JENKINS PTA Oct 16, 2018 12:07
--- NOTE | 2018-10-16 13:17 | Occupational Ther Daily Note ---
OT Current Status-Daily Note Subjective No pain reported. Appearance Pt. up in chair. Agrees to shower. Mental Status/Objective Patient Orientation: Person, Place, Time, Situation Therapy Code Descriptions/Definitions Functional [place] Measure: 0=Not Assessed/NA 4=Minimal Assistance 1=Total Assistance 5=Supervision or Setup 2=Maximal Assistance 6=Modified [place] 3=Moderate Assistance 7=Complete [place] ADL-Treatment Therapy Code Descriptions/Definitions Functional [place] Measure: 0=Not Assessed/NA 4=Minimal Assistance 1=Total Assistance 5=Supervision or Setup 2=Maximal Assistance 6=Modified [place] 3=Moderate Assistance 7=Complete [place] Therapy Quality Codes: 6 Independent with activity with or without an assistive device 5 Patient requires set up or clean up by helper. Patient completes activity by themselves 4 Supervision or touching assist (CGA). [place] provide cues , steadying assist 3 The helper provides less than half the effort to complete the activity 2 The helper provides more than half the effort to complete the activity 1 Dependent. The helper does all the effort to complete an activity 7 Patient refused to complete or attempt activity 9 The patient did not perform the activity before the current illness or injury 88 Not attempted due to Medical conditions or safety concerns Grooming (FIM): 5 Oral Hygiene (QC): 4 Bathing (FIM): 4 (Pt. requests for OT to wash bilateral feet. States that she has tried the LH sponge, but does not feel that it is "clean enough.") Shower/Bathe Self (QC): 4 Upper Body (FIM): 5 Upper Body Dressing (QC): 4 Lower Body Dressing (FIM): 4 (Pt. required assistance to don pants over left foot. Utilized AE and able to don underwear and slipper socks.) Lower Body Dressing (QC): 4 On/Off Footwear (QC): 4 Transfers (B, C, W/C) (FIM): 4 Shower Transfer(FIM): 4 Education OT Patient Education: Correct positioning, Modified ADL techniques, Progress toward Goal/Update tx plan, Purpose of tx/functional activities, Reviewed precautions, Rehab process, Transfer techniques, Use of adapted equipment Teaching Recipient: Patient Teaching Methods: Demonstration, Discussion Response to Teaching: Verbalize Understanding, Return Demonstration OT Short Term Goals Short Term Goals Eating(FIM): 7 Grooming(FIM): 6 Bathing(FIM): 4 Upper Body Dressing(FIM): 3 Lower Body Dressing(FIM): 3 Toileting(FIM): 4 Transfers (B,C,W/C) (FIM): 5 Toilet/Commode Transfer(FIM): 6 Tub Transfer(FIM): 5 Shower Transfer(FIM): 5 Additional Short Term Goals: 1-Demonstrate ADL Tasks, 2-Verbalize Understanding, 3-ImproveStrength/Tye 1=Demonstrate adherence to instructed precautions during ADL tasks. 2=Patient will verbalize/demonstrate understanding of assistive devices/modifications for ADL. 3=Patient will improve strength/tolerance for activity to enable patient to perform ADL's. OT Correction Goals Correction Goals Time Frame: Oct 31, 2018 Eating (FIM): 7 Eating (QC): 6 Groomin Oral Hygiene (QC): 6 Bathing(FIM): 7 Shower/Bathe Self (QC): 6 Upper Body Dressing(FIM): 7 Upper Body Dressing (QC): 6 Lower Body Dressing(FIM): 7 Lower Body Dressing (QC): 6 On/Off Footwear (QC): 6 Toileting(FIM): 7 Toileting Hygiene (QC): 6 Transfers (B,C,W/C) (FIM): 6 Toilet/Commode Transfer(FIM): 6 Toilet/Commode Transfer (QC): 6 Tub Transfer(FIM): 6 Shower Transfer(FIM): 6 Comprehension(FIM): 6 Expression (FIM): 6 Social Interaction(FIM): 6 Problem Solving(FIM): 6 Memory(FIM): 6 Additional Goals: 1-Demonstrate ADL Tasks, 2-Verbalize Understanding, 3- ImproveStrength/Tye 1=Demonstrate adherence to instructed precautions during ADL tasks. 2=Patient will verbalize/demonstrate understanding of assistive devices/modifications for ADL. 3=Patient will improve strength/tolerance for activity to enable patient to perform ADL's. OT Education/Plan Problem List/Assessment Assessment: Decreased Activ Tolerance, Dependent Transfers, Impaired Funct Balance, Impaired I ADL's, Impaired Self-Care Skills Pt presents will functional limitations affecting areas of ADLs and functional mobility with the above mentioned deficits. Pt will benefit from skilled OT services to increase independence with daily activities and safe transition to home. Discharge Recommendations Plan/Recommendations: Continue POC Comment To be determined. Treatment Plan/Plan of Care Treatment,Training & Education: Yes Patient would benefit from OT for education, treatment and training to promote independence in ADL's, mobility, safety and/or upper extremity function for ADL's. Plan of Care: ADL Retraining, Caregiver Training, Functional Mobility, Group Exercise/Act as Ind, UE Funct Exercise/Act Treatment Duration: Oct 31, 2018 Frequency: At least 5 of 7 days/Wk (IRF) Estimated Hrs Per Day: 1 hour per day (60-90 minutes) Agreement: Yes Rehab Potential: Good Time/GCodes Start Time: 08:00 Stop Time: 09:00 Total Time Billed (hr/min): 60 Billed Treatment Time 1, ADL x 60minutes TALIB RUBIO OT Oct 16, 2018 13:17
--- NOTE | 2018-10-16 13:21 | Occupational Ther Daily Note ---
OT Current Status-Daily Note Subjective Pt. reports that her hands are sore from gripping walker. Does not report pain level. PT notified for possible platforms to take weight off hands on walker. Appearance Pt. in therapy gym finishing with PT. Agrees to work with OT. Mental Status/Objective Patient Orientation: Person, Place, Time, Situation Therapy Code Descriptions/Definitions Functional [place] Measure: 0=Not Assessed/NA 4=Minimal Assistance 1=Total Assistance 5=Supervision or Setup 2=Maximal Assistance 6=Modified [place] 3=Moderate Assistance 7=Complete [place] ADL-Treatment Therapy Code Descriptions/Definitions Functional [place] Measure: 0=Not Assessed/NA 4=Minimal Assistance 1=Total Assistance 5=Supervision or Setup 2=Maximal Assistance 6=Modified [place] 3=Moderate Assistance 7=Complete [place] Therapy Quality Codes: 6 Independent with activity with or without an assistive device 5 Patient requires set up or clean up by helper. Patient completes activity by themselves 4 Supervision or touching assist (CGA). [place] provide cues , steadying assist 3 The helper provides less than half the effort to complete the activity 2 The helper provides more than half the effort to complete the activity 1 Dependent. The helper does all the effort to complete an activity 7 Patient refused to complete or attempt activity 9 The patient did not perform the activity before the current illness or injury 88 Not attempted due to Medical conditions or safety concerns Transfers (B, C, W/C) (FIM): 5 Pt. ambulated with walker to laundry room, approximately 60 feet. Increased time needed. Pt. practiced retrieving laundry from washing machine and putting into dryer using pier master. Pt. educated on using AE to assist with such tasks. Verbalized understanding and practiced task. Ambulated back to room with no difficulty, with SBA and walker. All needs met. Education OT Patient Education: Correct positioning, Modified ADL techniques, Progress toward Goal/Update tx plan, Purpose of tx/functional activities, Reviewed precautions, Rehab process, Transfer techniques Teaching Recipient: Patient Teaching Methods: Demonstration, Discussion Response to Teaching: Verbalize Understanding, Return Demonstration OT Short Term Goals Short Term Goals Eating(FIM): 7 Grooming(FIM): 6 Bathing(FIM): 4 Upper Body Dressing(FIM): 3 Lower Body Dressing(FIM): 3 Toileting(FIM): 4 Transfers (B,C,W/C) (FIM): 5 Toilet/Commode Transfer(FIM): 6 Tub Transfer(FIM): 5 Shower Transfer(FIM): 5 Additional Short Term Goals: 1-Demonstrate ADL Tasks, 2-Verbalize Understanding, 3-ImproveStrength/Tye 1=Demonstrate adherence to instructed precautions during ADL tasks. 2=Patient will verbalize/demonstrate understanding of assistive devices/modifications for ADL. 3=Patient will improve strength/tolerance for activity to enable patient to pe rform ADL's. OT Data Center Engineer Goals Halfway Goals Time Frame: Oct 31, 2018 Eating (FIM): 7 Eating (QC): 6 Groomin Oral Hygiene (QC): 6 Bathing(FIM): 7 Shower/Bathe Self (QC): 6 Upper Body Dressing(FIM): 7 Upper Body Dressing (QC): 6 Lower Body Dressing(FIM): 7 Lower Body Dressing (QC): 6 On/Off Footwear (QC): 6 Toileting(FIM): 7 Toileting Hygiene (QC): 6 Transfers (B,C,W/C) (FIM): 6 Toilet/Commode Transfer(FIM): 6 Toilet/Commode Transfer (QC): 6 Tub Transfer(FIM): 6 Shower Transfer(FIM): 6 Comprehension(FIM): 6 Expression (FIM): 6 Social Interaction(FIM): 6 Problem Solving(FIM): 6 Memory(FIM): 6 Additional Goals: 1-Demonstrate ADL Tasks, 2-Verbalize Understanding, 3- ImproveStrength/Tye 1=Demonstrate adherence to instructed precautions during ADL tasks. 2=Patient will verbalize/demonstrate understanding of assistive dev ices/modifications for ADL. 3=Patient will improve strength/tolerance for activity to enable patient to perform ADL's. OT Education/Plan Problem List/Assessment Assessment: Decreased Activ Tolerance, Decreased UE Strength, Dependent Transfers, Impaired Funct Balance, Impaired I ADL's, Impaired Self-Care Skills Pt presents will functional limitations affecting areas of ADLs and functional mobility with the above mentioned deficits. Pt will benefit from skilled OT services to increase independence with daily activities and safe transition to home. Discharge Recommendations Plan/Recommendations: Continue POC Therapy Discharge Recommendati: Post Acute OT Treatment Plan/Plan of Care Treatment,Training & Education: Yes Patient would benefit from OT for education, treatment and training to promote independence in ADL's, mobility, safety and/or upper extremity function for ADL's. Plan of Care: ADL Retraining, Caregiver Training, Functional Mobility, Group Exercise/Act as Ind, UE Funct Exercise/Act Treatment Duration: Oct 31, 2018 Frequency: At least 5 of 7 days/Wk (IRF) Estimated Hrs Per Day: 1 hour per day (60-90 minutes) Agreement: Yes Rehab Potential: Good Time/GCodes Start Time: 11:00 Stop Time: 11:30 Total Time Billed (hr/min): 30 Billed Treatment Time 1, ADL x 2 TALIB RUBIO OT Oct 16, 2018 13:21
--- NOTE | 2018-10-16 15:16 | Physical Therapy Daily Note ---
PT Daily Note-Current Subjective Pt asleep in recliner upon arrival. Pt agrees to PT. Pain Numeric Pain Scale: 5-Moderate Pain Location: Left Location Body Site: Foot Pain Description: Ache, Tightness Mental Status Patient Orientation: Person, Place, Time, Situation Transfers Therapy Code Descriptions/Definitions Functional [place] Measure: 0=Not Assessed/NA 4=Minimal Assistance 1=Total Assistance 5=Supervision or Setup 2=Maximal Assistance 6=Modified [place] 3=Moderate Assistance 7=Complete [place] Therapy Quality Codes: 6 Independent with activity with or without an assistive device 5 Patient requires set up or clean up by helper. Patient completes activity by themselves 4 Supervision or touching assist (CGA). [place] provide cues , steadying assist 3 The helper provides less than half the effort to complete the activity 2 The helper provides more than half the effort to complete the activity 1 Dependent. The helper does all the effort to complete an activity 7 Patient refused to complete or attempt activity 9 The patient did not perform the activity before the current illness or injury 88 Not attempted due to Medical conditions or safety concerns Scootin Sit to/from Stand: 5 Sit to Stand (QC): 5 Weight Bearing Right Lower Extremity: Right Weight Bearing/Tolerated Left Lower Extremity: Left Weight Bearing/Tolerated Gait Training Does the Patient Walk?: Yes Gait (FIM): 5 Distance (FIM): 3=150 ft Distance: 200' Walk 10 feet (QC): 5 Walk 50 ft with 2 Turns(QC): 5 Walk 150 ft (QC): 5 Gait Level of Assist: 5 Gait Persons Needed: 1 Gait Assistive Device: FWW Pt walks with slow moira, antalgic gait. Pt wanted to attempt walking w/o AD. Pt walked a few steps at [facility] but found it to be harder to walk this way and went back to W. Pt also attempted platform on R UE but this also did not work. Wheelchair Training Does the Pt Use a Wheelchair?: No Exercises Seated Therapy Exercises: Ankle pumps, Long arc quads, Hip flexion, Kicking activity Seated Reps: 20 NuStep Minutes: 15 NuStep Workload: 4 Treatments Pt completes Seated Ex in recliner for increasing strength of LE. Pt transfers from recliner to standing at [facility]. HOIST MECHANIC attached platform to R side of FWW but this did not work well for ambulation. Pt ambulates in hallway using FWW. Pt then uses NuStep for 15m at [facility] 4. Pt again ambulates in hallway to room and rests at end of tx. Pt also uses restroom before end of tx. Pt has all needs met, call light in hand. Assessment Current Status: Good Progress Pt is improving with mobility and transfers although still reports pain in L foot with standing and ambulating. PT Short Term Goals Short Term Goals Time Frame: Oct 18, 2018 Transfers (B,C,W/C) (FIM): 5 Gait (FIM): 4 Distance (FIM): 3=150 ft Gait Assistive Device: Cane Single Point PT Emergency Medicine Physician Assistant Goals Emergency Medicine Physician Assistant Goals PT Emergency Medicine Physician Assistant Goals Time Frame: Oct 25, 2018 Transfers (B,C,W/C) (FIM): 7 Sit to Lying (QC): 6 Lying-Sitting on Side/Bed(QC): 6 Sit to Stand (QC): 6 Roll Left to Right (QC): 6 Chair/[id number] Xfer(QC): 6 Car Transfer (QC): 6 Does the Patient Walk: Yes Gait (FIM): 6 Gait distance (FIM): 3=150 ft Walk 10 feet (QC): 6 Walk 10ft-Uneven Surface(QC): 6 Walk 50ft with 2 Turns (QC): 6 Walk 150 ft (QC): 6 Gait Level of Assist: 6 Gait Assistive Device: Cane Single Point (or least restrictive safe device) Does the Pt use WC or Scooter?: No Stairs (FIM): 6 # of Steps: 12 1 Step (curb) (QC): 6 4 Steps (QC): 6 12 Steps (QC): 6 Picking up an Object (QC): 88 PT Plan Problem List Problem List: Activity Tolerance, Functional Strength, Gait Treatment/Plan Treatment Plan: Continue Plan of Care Treatment Plan: Bed Mobility, Education, Functional Activity Tye, Functional Strength, Group Therapy, Gait, Safety, Therapeutic Exercise, Transfers Treatment Duration: Oct 25, 2018 Frequency: At least 5 of 7 days/Wk (IRF) Estimated Hrs Per Day: 1.5 hours per day Patient and/or Family Agrees t: Yes Safety Risks/Education Patient Education: Gait Training, Transfer Techniques, Correct Positioning, Safety Issues Teaching Recipient: Patient Teaching Methods: Discussion Response to Teaching: Verbalize Understanding Time/GCodes Time In: 1345 Time Out: 1500 Total Billed Treatment Time: 75 Total Billed Treatment 1, GT x2 (30m), EX x2 (30m) & FA (15m) DAVEY JENKINS HOIST MECHANIC Oct 16, 2018 15:16
--- NOTE | 2018-10-16 16:43 | NUR ---
REPORT RECEIVED FROM ANUPAM MANDUJANO. ASSUMED CARE OF THE PATIENT AT THIS TIME.
--- NOTE | 2018-10-16 16:44 | NUR ---
REPORT RECEIVED FROM ANUPAM SIERRA. ASSUMED CARE OF THE PATIENT AT THIS TIME.
[2018-10-16 17:21] VITALS: BP 112/74
[2018-10-17] MEDS: ACETAMINOPHEN 325 MG TABLET PO SCH ×4 (00:11→18:01)
[2018-10-17 05:55] VITALS: BP 107/65
--- NOTE | 2018-10-17 06:45 | Progress Note - Hospitalist ---
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 She struggles to rise to a seated position after being supine. Once she is in the seated position, she is able to pretty comfortably use the walker with decreasing amounts of assistance. She lives in an apartment by herself on the second floor. For the time being her parents will be in [place] to help for a few months. She has some friends that will be able to drive her around in [place] as well as a few in [place]. She has no pet that reside with her. She is a [employer] graduate. She received a Master in Engineering Construction in June of 2017. JU DOBBINS DO 10/17/18 1132: Supervisory-Addendum Brief Verification & Attestation Participated in pt care: history, MDM, physical Personally performed: exam, history, MDM, supervision of care Care discussed with: Medical Student Procedures: n/a Results interpretation: Verified all documentation Verification and Attestation of Medical Student E/M Service A medical student performed and documented this service in my presence. I reviewed and verified all information documented by the medical student and made modifications to such information, when appropriate. I personally performed the physical exam and medical decision making. Ju Dobbins, Oct 17, 2018,11:32 [facility] Oct 17, 2018 06:45 JU DOBBINS DO Oct 17, 2018 11:32
[2018-10-17] MEDS: DOCUSATE SODIUM 100 MG (COLACE) CAP PO SCH ×2 (09:00→20:46)
[2018-10-17] MEDS: SENNOSIDES 8.6 MG (SENOKOT) TAB PO SCH ×2 (09:00→20:52)
[2018-10-17] MEDS: POLYETHYLENE GLYCOL 17 GM (MIRALAX) PACK PO SCH ×2 (09:00→20:51)
[2018-10-17] MEDS: APIXABAN 2.5 MG (ELIQUIS) TABLET PO SCH ×2 (10:03→20:47)
--- NOTE | 2018-10-17 10:46 | Occupational Ther Daily Note ---
OT Current Status-Daily Note Subjective Pt upright in recliner at start of session, agreeable to OT session focusing on showering and ADLS. Pt reported pain in LLE, did not verbalize pain rating. Mental Status/Objective Patient Orientation: Normal For Age Therapy Code Descriptions/Definitions Functional [place] Measure: 0=Not Assessed/NA 4=Minimal Assistance 1=Total Assistance 5=Supervision or Setup 2=Maximal Assistance 6=Modified [place] 3=Moderate Assistance 7=Complete [place] ADL-Treatment Therapy Code Descriptions/Definitions Functional [place] Measure: 0=Not Assessed/NA 4=Minimal Assistance 1=Total Assistance 5=Supervision or Setup 2=Maximal Assistance 6=Modified [place] 3=Moderate Assistance 7=Complete [place] Therapy Quality Codes: 6 Independent with activity with or without an assistive device 5 Patient requires set up or clean up by helper. Patient completes activity by themselves 4 Supervision or touching assist (CGA). [place] provide cues , steadying assist 3 The helper provides less than half the effort to complete the activity 2 The helper provides more than half the effort to complete the activity 1 Dependent. The helper does all the effort to complete an activity 7 Patient refused to complete or attempt activity 9 The patient did not perform the activity before the current illness or injury 88 Not attempted due to Medical conditions or safety concerns Grooming (FIM): 6 (Pt completed grooming Mod I seated. Pt denied brushing teeth stating she has already completed the task this AM) Bathing (FIM): 5 (SBA for safety during stand to wash periare and buttocks, OT educated pt on using towel over long handled sponge secondary to pt stating sponge was too soft to do a good job. ) Bathing Location: L Arm, R Arm, L Upper Leg, R Upper Leg, L Lower Leg (including foot), R Lower Leg (including foot), Chest, Abdomen, Buttocks, Perineal Area Shower/Bathe Self (QC): 4 Upper Body (FIM): 6 (Mod I secondary to increased time, pt donned/doff bra and tail puller shirt) Upper Body Dressing (QC): 6 Lower Body Dressing (FIM): 4 (Pt completed 7/8 parts, requiring assistance donning LLE into pant leg using trade manager. ) Lower Body Dressing (QC): 3 On/Off Footwear (QC): 6 (slip on shoes) Toileting (FIM): 6 (Mod I, pt completed 3/3 parts) Toileting Hygiene (QC): 6 Transfers (B, C, W/C) (FIM): 5 (SBA for safety during sit to/from stands from recliner) Toilet/Commode Transfer (FIM): 6 (Mod I using FWW and grab bars) Toilet Transfer (QC): 6 Tub Transfer(FIM): 4 (Min A, pt transferred in/out of tub on tub bench. Pt required assistance liftin LLE into/out of tub.) Other Treatment Pt completed showering/grooming/dressing in room. OT educated pt about dressing LLE first due to pain causing it to be harder to dress, pt verbalized understanding stating she will try this next time. Post shower, nursing present to give pt meds and change dressing. As nursing changed dressing, pt brushed hair sitting in recliner. Pt ambulated to laundry using FWW, with increased time for ambulation. Pt placed clothing into washer and started the washer, then ambulated back to her room. Post OT session, pt seated in recliner, call light and phone in reach and all needs met. Education OT Patient Education: Energy conservation, Modified ADL techniques, Progress toward Goal/Update tx plan, Purpose of tx/functional activities, Transfer techniques, Use of adapted equipment Teaching Recipient: Patient Teaching Methods: Demonstration Response to Teaching: Verbalize Understanding OT Short Term Goals Short Term Goals Eating(FIM): 7 Grooming(FIM): 6 Bathing(FIM): 4 Upper Body Dressing(FIM): 3 Lower Body Dressing(FIM): 3 Toileting(FIM): 4 Transfers (B,C,W/C) (FIM): 5 Toilet/Commode Transfer(FIM): 6 Tub Transfer(FIM): 5 Shower Transfer(FIM): 5 Additional Short Term Goals: 1-Demonstrate ADL Tasks, 2-Verbalize Understanding, 3-ImproveStrength/Tye 1=Demonstrate adherence to instructed precautions during ADL tasks. 2=Patient will verbalize/demonstrate understanding of assistive devices/modifications for ADL. 3=Patient will improve strength/tolerance for activity to enable patient to perform ADL's. OT Detention Goals Detention Goals Time Frame: Oct 31, 2018 Eating (FIM): 7 Eating (QC): 6 Groomin Oral Hygiene (QC): 6 Bathing(FIM): 7 Shower/Bathe Self (QC): 6 Upper Body Dressing(FIM): 7 Upper Body Dressing (QC): 6 Lower Body Dressing(FIM): 7 Lower Body Dressing (QC): 6 On/Off Footwear (QC): 6 Toileting(FIM): 7 Toileting Hygiene (QC): 6 Transfers (B,C,W/C) (FIM): 6 Toilet/Commode Transfer(FIM): 6 Toilet/Commode Transfer (QC): 6 Tub Transfer(FIM): 6 Shower Transfer(FIM): 6 Comprehension(FIM): 6 Expression (FIM): 6 Social Interaction(FIM): 6 Problem Solving(FIM): 6 Memory(FIM): 6 Additional Goals: 1-Demonstrate ADL Tasks, 2-Verbalize Understanding, 3- ImproveStrength/Tye 1=Demonstrate adherence to instructed precautions during ADL tasks. 2=Patient will verbalize/demonstrate understanding of assistive devices/modifications for ADL. 3=Patient will improve strength/tolerance for activity to enable patient to perform ADL's. OT Education/Plan Problem List/Assessment Assessment: Decreased Activ Tolerance, Impaired Funct Balance, Impaired I ADL's, Impaired Self-Care Skills Pt presents will functional limitations affecting areas of ADLs and functional mobility with the above mentioned deficits. Pt will benefit from skilled OT services to increase independence with daily activities and safe transition to home. Discharge Recommendations Plan/Recommendations: Continue POC Equpiment Recommendations-D/C: Extended Bath Bench Barriers to Progress pain Treatment Plan/Plan of Care Treatment,Training & Education: Yes Patient would benefit from OT for education, treatment and training to promote independence in ADL's, mobility, safety and/or upper extremity function for ADL's. Plan of Care: ADL Retraining, Caregiver Training, Functional Mobility, Group Exercise/Act as Ind, UE Funct Exercise/Act Treatment Duration: Oct 31, 2018 Frequency: At least 5 of 7 days/Wk (IRF) Estimated Hrs Per Day: 1 hour per day (60-90 minutes) Agreement: Yes Rehab Potential: Good Time/GCodes Start Time: 09:15 Stop Time: 10:15 Total Time Billed (hr/min): 60 Billed Treatment Time 1, ADL 4 MIRI LYMAN OT Oct 17, 2018 10:46
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
--- NOTE | 2018-10-17 12:00 | Physical Therapy Daily Note ---
PT Daily Note-Current Subjective Pt sitting in recliner upon arrival. Pt agrees to PT. Pt reports pain on L foot when moving or WB. Pain Numeric Pain Scale: 5-Moderate Pain Location: Left Location Body Site: Foot Pain Description: Ache Mental Status Patient Orientation: Person, Place, Time, Situation Transfers Therapy Code Descriptions/Definitions Functional [place] Measure: 0=Not Assessed/NA 4=Minimal Assistance 1=Total Assistance 5=Supervision or Setup 2=Maximal Assistance 6=Modified [place] 3=Moderate Assistance 7=Complete [place] Therapy Quality Codes: 6 Independent with activity with or without an assistive device 5 Patient requires set up or clean up by helper. Patient completes activity by themselves 4 Supervision or touching assist (CGA). [place] provide cues , steadying assist 3 The helper provides less than half the effort to complete the activity 2 The helper provides more than half the effort to complete the activity 1 Dependent. The helper does all the effort to complete an activity 7 Patient refused to complete or attempt activity 9 The patient did not perform the activity before the current illness or injury 88 Not attempted due to Medical conditions or safety concerns Scootin Sit to/from Stand: 5 Sit to Stand (QC): 5 Weight Bearing Right Lower Extremity: Right Weight Bearing/Tolerated Left Lower Extremity: Left Weight Bearing/Tolerated Gait Training Does the Patient Walk?: Yes Gait (FIM): 5 Distance (FIM): 3=150 ft Distance: 200' Walk 10 feet (QC): 5 Walk 50 ft with 2 Turns(QC): 5 Walk 150 ft (QC): 5 Gait Level of Assist: 5 Gait Persons Needed: 1 Gait Assistive Device: FWW Pt walks with slow moira & antalgic gait pattern. Pt reports pain with WB & movement of L foot. Wheelchair Training Does the Pt Use a Wheelchair?: No Stair Training Stair Training: Handrails/: 2 handrails #of Steps: 4 1 Step (curb) (QC): 4 4 Steps (QC): 4 Stairs: Pattern: Step to Level of Assist: 4 Exercises Seated Therapy Exercises: Ankle pumps, Long arc quads, Hip flexion, Kicking activity, Hamstring Curls, Glut set Seated Reps: 20 NuStep Minutes: 15 NuStep Workload: 4 Treatments Pt transfers from recliner to standing then ambulates in hallway using FWW. Pt uses NuStep for 15m at WL 4, then Seated EX before RB. Pt completes 1 set of steps. Pt returns to room to use restroom and rest at end of tx. Pt has all needs met, call light next to pt. Assessment Current Status: Good Progress Pt continues to push self despite pain in L foot and B hands. PT Short Term Goals Short Term Goals Time Frame: Oct 18, 2018 Transfers (B,C,W/C) (FIM): 5 Gait (FIM): 4 Distance (FIM): 3=150 ft Gait Assistive Device: Cane Single Point PT [facility]ci Goals Supervisor Shearing Goals PT [facility]ci Goals Time Frame: Oct 25, 2018 Transfers (B,C,W/C) (FIM): 7 Sit to Lying (QC): 6 Lying-Sitting on Side/Bed(QC): 6 Sit to Stand (QC): 6 Roll Left to Right (QC): 6 Chair/Uej-mv-Rwnjy Xfer(QC): 6 Car Transfer (QC): 6 Does the Patient Walk: Yes Gait (FIM): 6 Gait distance (FIM): 3=150 ft Walk 10 feet (QC): 6 Walk 10ft-Uneven Surface(QC): 6 Walk 50ft with 2 Turns (QC): 6 Walk 150 ft (QC): 6 Gait Level of Assist: 6 Gait Assistive Device: Cane Single Point (or least restrictive safe device) Does the Pt use WC or Scooter?: No Stairs (FIM): 6 # of Steps: 12 1 Step (curb) (QC): 6 4 Steps (QC): 6 12 Steps (QC): 6 Picking up an Object (QC): 88 PT Plan Problem List Problem List: Gait Treatment/Plan Treatment Plan: Continue Plan of Care Treatment Plan: Bed Mobility, Education, Functional Activity Tye, Functional Strength, Group Therapy, Gait, Safety, Therapeutic Exercise, Transfers Treatment Duration: Oct 25, 2018 Frequency: At least 5 of 7 days/Wk (IRF) Estimated Hrs Per Day: 1.5 hours per day Patient and/or Family Agrees t: Yes Safety Risks/Education Patient Education: Gait Training, Transfer Techniques, Steps, Correct Positioning, Safety Issues Teaching Recipient: Patient Teaching Methods: Discussion Response to Teaching: Verbalize Understanding Time/GCodes Time In: 1045 Time Out: 1145 Total Billed Treatment Time: 60 Total Billed Treatment 1, GT (15m), EX x2 (30m) & FA (15m) DAVEY JENKINS DIRECTOR SPECIAL EDUCATION Oct 17, 2018 12:00
--- NOTE | 2018-10-17 15:07 | Therapy Group Daily Note ---
Therapy Daily Group Note Patient Education Topic Other List Below (memory) Exercises LE Seated Exercise, UE Exercise Session Ratio (pt:therapist): 4:1 Goal of Session: Memory Strategies, UE/LE Strengthing Goal Met for this Session: Yes Pt Benefit of Group: Contributions to Others, Increased Functional Strength, Improved Cognition, Recognition of Peers, Socialization Other/Notes Pt ambulated with FWW to OT group. Group consisted of introductions (name, place living, worst thing forgot then remembered), socialization, seated UE/LE seated exercises, review of ARU, memory activity/exercises and education on memory strategies. Pt introduced self appropriately and actively listened to peers. Pt was able to participate in group effectively and engaged in peer conversations. Memory activity completed and pt was able to match 2 of 2 without difficulty. Pt tolerated UE/LE seated exercises well, 1 set 10 reps of each exercise. Pt acknowledged understanding of educational topic verbally by giving personal strategies and activities to strengthen memory. After therapy, pt sitting in recliner with call light/phone in reach. All needs met in room. Start Time: 13:00 Stop Time: 14:20 Total Billed Treatment Time: 80 Total Billed Treatment 1-GRP SUSY LEMONS Oct 17, 2018 15:07
[2018-10-17 17:31] VITALS: BP 122/72
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
--- NOTE | 2018-10-17 19:13 | NUR ---
bedside report received from GREG BO, assume care of pt
--- NOTE | 2018-10-17 20:45 | NUR ---
assessments & interventions completed, see assessments & interventions, up in chair ambulates in kim with walker
--- NOTE | 2018-10-17 20:50 | NUR ---
c/o pain level 4/10 on numeric scale, only wanted oxyir 5mg not 10mg, refused miralax & Colace
--- NOTE | 2018-10-17 21:30 | NUR ---
rates pain level 1/10 on numeric scale
--- NOTE | 2018-10-18 | NUR ---
scheduled Tylenol 650mg po given, pain level 4/10 on numeric scale
[2018-10-18] MEDS: ACETAMINOPHEN 325 MG TABLET PO SCH ×4 (00:09→18:42)
--- NOTE | 2018-10-18 00:40 | NUR ---
resting quietly in bed, pain level 0/10 on flacc scale
[2018-10-18 05:50] VITALS: BP 96/67
--- NOTE | 2018-10-18 06:05 | NUR ---
scheduled Tylenol 650mg po pain level 4/10 on numeric scale
--- NOTE | 2018-10-18 06:45 | NUR ---
rates pain at 2/10 on numeric scale
--- NOTE | 2018-10-18 07:16 | NUR ---
bedside report given to MONICA BO
--- NOTE | 2018-10-18 08:00 | NUR ---
PLEASANT AND COOPERATIVE. STATES FEELS IS GETTING STRONGER. WOUNDS ON RIGHT LEG AND LEFT ANKLE DRYING UP AND LEFT OPEN TO AIR EXCEPT WITH THERAPY.
--- NOTE | 2018-10-18 08:42 | Occupational Ther Daily Note ---
OT Current Status-Daily Note Subjective Pt seen in bed. Pt c/o 4/10 pain, unable to fall asleep until about 1am. Pt agreeable to OT tx session. Mental Status/Objective Patient Orientation: Normal For Age Therapy Code Descriptions/Definitions Functional [place] Measure: 0=Not Assessed/NA 4=Minimal Assistance 1=Total Assistance 5=Supervision or Setup 2=Maximal Assistance 6=Modified [place] 3=Moderate Assistance 7=Complete [place] ADL-Treatment Therapy Code Descriptions/Definitions Functional [place] Measure: 0=Not Assessed/NA 4=Minimal Assistance 1=Total Assistance 5=Supervision or Setup 2=Maximal Assistance 6=Modified [place] 3=Moderate Assistance 7=Complete [place] Therapy Quality Codes: 6 Independent with activity with or without an assistive device 5 Patient requires set up or clean up by helper. Patient completes activity by themselves 4 Supervision or touching assist (CGA). [place] provide cues , steadying assist 3 The helper provides less than half the effort to complete the activity 2 The helper provides more than half the effort to complete the activity 1 Dependent. The helper does all the effort to complete an activity 7 Patient refused to complete or attempt activity 9 The patient did not perform the activity before the current illness or injury 88 Not attempted due to Medical conditions or safety concerns Eating (FIM): 7 Eating (QC): 6 Grooming (FIM): 6 (Increased time) Oral Hygiene (QC): 6 (Pt completed at sink, standing with FWW with increased time) Bathing (FIM): 5 (SBA during standing during kourtney hygiene. Pt able to complete showering with long handled sponge.) Shower/Bathe Self (QC): 4 (SBA during kourtney washing. Pt utilized tub bench for bathing.) Upper Body (FIM): 5 (s/u) Upper Body Dressing (QC): 5 Lower Body Dressing (FIM): 3 (mod A for threading 2 leg through pants. Pt required SBA for safety while pulling pants up.) Lower Body Dressing (QC): 3 On/Off Footwear (QC): 5 (s/u for sandals without back) Toileting (FIM): 6 (mod I, pt groaned as she squatted to sit.) Toileting Hygiene (QC): 6 Transfers (B, C, W/C) (FIM): 3 (Mod A due to BLE requiring assist for bed mobility.) Toilet/Commode Transfer (FIM): 5 (SUP for safety) Toilet Transfer (QC): 4 (utilized FWW with SUP) Tub Transfer(FIM): 5 (Pt completed with SBA. Pt sat edge of tub bench and lifted BLE to clear tub side.) Other Treatment Pt completed oral hygiene, showering, toileting, and UE exercises at this date. Pt completed a portion of a leisure interest check list while seated. Pt completed sit to stand transfers with SBA to SUP. Pt completed toileting and oral hygiene with modified independence wihtin the bathroom. Pt stated her friends home which she plans to d/c to has tub shower with sliding glass door and no grab bars. Pt and OT plan to work toward increase IND within shower transfer and endurance for standing for showering tasks. Pt utilized tub bench to transfer with mod I (no touching assist this date). Pt completed dressing tasks within shower, able to complete with min A for LB dressing. Pt transferred from tub shower over ledge to FWW utilizing grab bars and SBA. Pt able to transfer with good safety awareness and increased time to decrease pain. Pt sits in recliner chair to complete UE exercises (1 set of 10 reps for increased endurance and strength with red theraband). Pt completed exercises with cues for positioning. Pt's nurse contacted post-shower to cover open wounds during session. Pt left in recliner chair with call light in reach and all needs met. Education OT Patient Education: Correct positioning, Exercise program, Modified ADL techniques, Progress toward Goal/Update tx plan, Purpose of tx/functional activities, Rehab process, Safety issues, Transfer techniques, Use of adapted equipment Teaching Recipient: Patient Teaching Methods: Demonstration, Discussion Response to Teaching: Verbalize Understanding, Return Demonstration OT Short Term Goals Short Term Goals Eating(FIM): 7 (met) Grooming(FIM): 6 (met) Bathing(FIM): 4 (met) Upper Body Dressing(FIM): 3 (met) Lower Body Dressing(FIM): 3 (met) Toileting(FIM): 4 (met) Transfers (B,C,W/C) (FIM): 5 Toilet/Commode Transfer(FIM): 6 (met) Tub Transfer(FIM): 5 Shower Transfer(FIM): 5 Additional Short Term Goals: 1-Demonstrate ADL Tasks, 2-Verbalize Understanding, 3-ImproveStrength/Tye 1=Demonstrate adherence to instructed precautions during ADL tasks. 2=Patient will verbalize/demonstrate understanding of assistive devices/modifications for ADL. 3=Patient will improve strength/tolerance for activity to enable patient to perform ADL's. OT Alf Goals Alf Goals Time Frame: Oct 31, 2018 Eating (FIM): 7 Eating (QC): 6 Groomin Oral Hygiene (QC): 6 Bathing(FIM): 7 Shower/Bathe Self (QC): 6 Upper Body Dressing(FIM): 7 Upper Body Dressing (QC): 6 Lower Body Dressing(FIM): 7 Lower Body Dressing (QC): 6 On/Off Footwear (QC): 6 Toileting(FIM): 7 Toileting Hygiene (QC): 6 Transfers (B,C,W/C) (FIM): 6 Toilet/Commode Transfer(FIM): 6 Toilet/Commode Transfer (QC): 6 Tub Transfer(FIM): 6 Shower Transfer(FIM): 6 Comprehension(FIM): 6 Expression (FIM): 6 Social Interaction(FIM): 6 Problem Solving(FIM): 6 Memory(FIM): 6 Additional Goals: 1-Demonstrate ADL Tasks, 2-Verbalize Understanding, 3-ImproveStrength/Tye 1=Demonstrate adherence to instructed precautions during ADL tasks. 2=Patient will verbalize/demonstrate understanding of assistive devices/modifications for ADL. 3=Patient will improve strength/tolerance for activity to enable patient to perform ADL's. OT Education/Plan Problem List/Assessment Assessment: Decreased Activ Tolerance, Decreased UE Strength, Impaired Bed Mobility, Impaired I ADL's, Impaired Self-Care Skills Pt presents will functional limitations affecting areas of ADLs and functional mobility with the above mentioned deficits. Pt will benefit from skilled OT services to increase independence with daily activities and safe transition to home. Discharge Recommendations Plan/Recommendations: Continue POC Treatment Plan/Plan of Care Treatment,Training & Education: Yes Patient would benefit from OT for education, treatment and training to promote independence in ADL's, mobility, safety and/or upper extremity function for ADL's. Plan of Care: ADL Retraining, Caregiver Training, Functional Mobility, Group Exercise/Act as Ind, UE Funct Exercise/Act Treatment Duration: Oct 31, 2018 Frequency: At least 5 of 7 days/Wk (IRF) Estimated Hrs Per Day: 1 hour per day (60-90 minutes) Agreement: Yes Rehab Potential: Good Time/GCodes Start Time: 07:55 Stop Time: 09:25 Total Time Billed (hr/min): 90 Billed Treatment Time 1 ADL 4 EX 2 SHIRLEY ARIAS OTR Oct 18, 2018 08:42
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
[2018-10-18] MEDS: APIXABAN 2.5 MG (ELIQUIS) TABLET PO SCH ×2 (09:33→20:24)
[2018-10-18] MEDS: BISACODYL 5 MG (DULCOLAX) TABLET PO SCH (09:33)
[2018-10-18] MEDS: POLYETHYLENE GLYCOL 17 GM (MIRALAX) PACK PO SCH ×2 (09:33→20:25)
[2018-10-18] MEDS: DOCUSATE SODIUM 100 MG (COLACE) CAP PO SCH ×2 (09:33→20:25)
[2018-10-18] MEDS: SENNOSIDES 8.6 MG (SENOKOT) TAB PO SCH ×2 (09:33→20:25)
--- NOTE | 2018-10-18 09:43 | NUR ---
Spoke with RN/CM with Patience TAMAYO, in reference to patient's progress with therapies. RN/CM agreeable to re-assessing patient's progress, Monday, October 22. Clinical information to be submitted and phone call made to covering RN/CM, Ramon Christy, .
--- NOTE | 2018-10-18 11:44 | NUR ---
Patient requested RISK COMPLIANCE ANALYST to obtain medical records from [facility] in [place]. RISK COMPLIANCE ANALYST sent authorization for release of information to [place] medical records.
--- NOTE | 2018-10-18 12:30 | Physical Therapy Daily Note ---
PT Daily Note-Current Subjective Pt sitting in recliner upon arrival. Pt agrees to PT. Pain Numeric Pain Scale: 5-Moderate Pain Location: Left Location Body Site: Foot Pain Description: Ache, Tightness Mental Status Patient Orientation: Person, Place, Time, Situation Transfers Therapy Code Descriptions/Definitions Functional [place] Measure: 0=Not Assessed/NA 4=Minimal Assistance 1=Total Assistance 5=Supervision or Setup 2=Maximal Assistance 6=Modified [place] 3=Moderate Assistance 7=Complete [place] Therapy Quality Codes: 6 Independent with activity with or without an assistive device 5 Patient requires set up or clean up by helper. Patient completes activity by themselves 4 Supervision or touching assist (CGA). [place] provide cues , steadying assist 3 The helper provides less than half the effort to complete the activity 2 The helper provides more than half the effort to complete the activity 1 Dependent. The helper does all the effort to complete an activity 7 Patient refused to complete or attempt activity 9 The patient did not perform the activity before the current illness or injury 88 Not attempted due to Medical conditions or safety concerns Scootin Sit to/from Stand: 5 Sit to Stand (QC): 5 Weight Bearing Right Lower Extremity: Right Weight Bearing/Tolerated Left Lower Extremity: Left Weight Bearing/Tolerated Gait Training Does the Patient Walk?: Yes Gait (FIM): 5 Distance (FIM): 3=150 ft Distance: 200' Walk 10 feet (QC): 5 Walk 50 ft with 2 Turns(QC): 5 Walk 150 ft (QC): 5 Gait Level of Assist: 5 Gait Persons Needed: 1 Gait Assistive Device: FWW Stair Training Stair Training: Handrails/: 1 handrail #of Steps: 8 1 Step (curb) (QC): 4 4 Steps (QC): 4 Stairs: Pattern: Step to Level of Assist: 4 Pt attempts first 4 steps using handrails then 2nd set using one handrail & GIVING OFFICER. Pt fatigues easily & reports pain. Exercises Seated Therapy Exercises: Ankle pumps, Long arc quads, Hip flexion, Kicking activity, Hamstring Curls Seated Reps: 20 Treatments Pt transfers from recliner to standing, then ambulates in hallway. Pt uses NuStep for 15m at WL 4. Pt ambulates 2 sets of 4 steps (first trying with 2 handrails & second with one hand rail & GIVING OFFICER). Pt ambulates in hallway back to room to use restroom and rest. Pt has all needs met, call light in hand. Assessment Current Status: Good Progress Pain in L foot & B UE limits/affects ambulation. PT Short Term Goals Short Term Goals Time Frame: Oct 18, 2018 Transfers (B,C,W/C) (FIM): 5 Gait (FIM): 4 Distance (FIM): 3=150 ft Gait Assistive Device: Cane Single Point PT Studio Operator Goals Longterm Goals PT Longterm Goals Time Frame: Oct 25, 2018 Transfers (B,C,W/C) (FIM): 7 Sit to Lying (QC): 6 Lying-Sitting on Side/Bed(QC): 6 Sit to Stand (QC): 6 Roll Left to Right (QC): 6 Chair/Ued-kz-Huoyq Xfer(QC): 6 Car Transfer (QC): 6 Does the Patient Walk: Yes Gait (FIM): 6 Gait distance (FIM): 3=150 ft Walk 10 feet (QC): 6 Walk 10ft-Uneven Surface(QC): 6 Walk 50ft with 2 Turns (QC): 6 Walk 150 ft (QC): 6 Gait Level of Assist: 6 Gait Assistive Device: Cane Single Point (or least restrictive safe device) Does the Pt use WC or Scooter?: No Stairs (FIM): 6 # of Steps: 12 1 Step (curb) (QC): 6 4 Steps (QC): 6 12 Steps (QC): 6 Picking up an Object (QC): 88 PT Plan Problem List Problem List: Activity Tolerance, Functional Strength, Gait Treatment/Plan Treatment Plan: Continue Plan of Care Treatment Plan: Bed Mobility, Education, Functional Activity Tye, Functional Strength, Group Therapy, Gait, Safety, Therapeutic Exercise, Transfers Treatment Duration: Oct 25, 2018 Frequency: At least 5 of 7 days/Wk (IRF) Estimated Hrs Per Day: 1.5 hours per day Patient and/or Family Agrees t: Yes Safety Risks/Education Patient Education: Gait Training, Transfer Techniques, Steps, Correct Positioning, Safety Issues Teaching Recipient: Patient Teaching Methods: Discussion Response to Teaching: Verbalize Understanding Time/GCodes Time In: 1130 Time Out: 1230 Total Billed Treatment Time: 60 Total Billed Treatment 1, GT (20m), FA x2 (25m) & EX (15m) DAVEY JENKINS PTA Oct 18, 2018 12:30
--- NOTE | 2018-10-18 12:48 | NUR ---
SPECIALIST PHYSICIAN met with patient and parents to review team conference summary. As patient continues to require standby assist with most activities, min assist with lower body ADL's and unable to perform stairs at this time, team recommends patient's progress be discussed on Monday. Patient intends to temporarily stay with a friend at discharge, but will need to navigate 4 steps. Patient is agreeable to this. SPECIALIST PHYSICIAN will continue to follow.
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
--- NOTE | 2018-10-18 16:09 | Physical Therapy Daily Note ---
PT Daily Note-Current Subjective Pt sitting in recliner with both parents present. Pt agrees to PT for Family Training with stairs. Pain Numeric Pain Scale: 5-Moderate Pain Location: Left Location Body Site: Foot Pain Description: Ache, Tightness Mental Status Patient Orientation: Person, Place, Time, Situation Transfers Therapy Code Descriptions/Definitions Functional [place] Measure: 0=Not Assessed/NA 4=Minimal Assistance 1=Total Assistance 5=Supervision or Setup 2=Maximal Assistance 6=Modified [place] 3=Moderate Assistance 7=Complete [place] Therapy Quality Codes: 6 Independent with activity with or without an assistive device 5 Patient requires set up or clean up by helper. Patient completes activity by themselves 4 Supervision or touching assist (CGA). [place] provide cues , steadying assist 3 The helper provides less than half the effort to complete the activity 2 The helper provides more than half the effort to complete the activity 1 Dependent. The helper does all the effort to complete an activity 7 Patient refused to complete or attempt activity 9 The patient did not perform the activity before the current illness or injury 88 Not attempted due to Medical conditions or safety concerns Scootin Sit to/from Stand: 6 Sit to Stand (QC): 6 Weight Bearing Right Lower Extremity: Right Weight Bearing/Tolerated Left Lower Extremity: Left Weight Bearing/Tolerated Gait Training Does the Patient Walk?: Yes Gait (FIM): 5 Distance (FIM): 3=150 ft Distance: 200' Walk 10 feet (QC): 5 Walk 50 ft with 2 Turns(QC): 5 Walk 150 ft (QC): 5 Gait Level of Assist: 5 Gait Persons Needed: 1 Gait Assistive Device: FWW Wheelchair Training Does the Pt Use a Wheelchair?: No Stair Training Stair Training: Handrails/: 1 handrail #of Steps: 12 1 Step (curb) (QC): 4 4 Steps (QC): 4 12 Steps (QC): 4 Stairs: Pattern: Step to Level of Assist: 4 Pt uses L hand rail & RESERVATION AGENT for ambulation. First set of 4 steps with CATERING CONVENTION SERVICES MANAGER for instruction to pt's parents, then next 8 steps with pt's father assisting. Treatments Pt transfers from recliner to standing then ambulates in hallway to Therapy Gym. Pt ambulates 3 sets of 4 steps. Pt ambulates back to room to rest at end of tx. Pt has all needs met, call light in hand. Assessment Current Status: Good Progress Pt's pain affects ambulation and stairs. PT Short Term Goals Short Term Goals Time Frame: Oct 18, 2018 Transfers (B,C,W/C) (FIM): 5 Gait (FIM): 4 Distance (FIM): 3=150 ft Gait Assistive Device: Cane Single Point PT Bead Preparer Goals Senior Living Goals PT Bead Preparer Goals Time Frame: Oct 25, 2018 Transfers (B,C,W/C) (FIM): 7 Sit to Lying (QC): 6 Lying-Sitting on Side/Bed(QC): 6 Sit to Stand (QC): 6 Roll Left to Right (QC): 6 Chair/Cvp-pm-Pmiub Xfer(QC): 6 Car Transfer (QC): 6 Does the Patient Walk: Yes Gait (FIM): 6 Gait distance (FIM): 3=150 ft Walk 10 feet (QC): 6 Walk 10ft-Uneven Surface(QC): 6 Walk 50ft with 2 Turns (QC): 6 Walk 150 ft (QC): 6 Gait Level of Assist: 6 Gait Assistive Device: Cane Single Point (or least restrictive safe device) Does the Pt use WC or Scooter?: No Stairs (FIM): 6 # of Steps: 12 1 Step (curb) (QC): 6 4 Steps (QC): 6 12 Steps (QC): 6 Picking up an Object (QC): 88 PT Plan Problem List Problem List: Activity Tolerance, Functional Strength, Gait Treatment/Plan Treatment Plan: Continue Plan of Care Treatment Plan: Bed Mobility, Education, Functional Activity Tye, Functional Strength, Group Therapy, Gait, Safety, Therapeutic Exercise, Transfers Treatment Duration: Oct 25, 2018 Frequency: At least 5 of 7 days/Wk (IRF) Estimated Hrs Per Day: 1.5 hours per day Patient and/or Family Agrees t: Yes Safety Risks/Education Patient Education: Gait Training, Transfer Techniques, Steps, Correct Positioning, Safety Issues Teaching Recipient: Patient Teaching Methods: Discussion Response to Teaching: Verbalize Understanding Time/GCodes Time In: 1430 Time Out: 1500 Total Billed Treatment Time: 30 Total Billed Treatment 1, GT (15m) & FA (15m) DAVEY JENKINS CATERING CONVENTION SERVICES MANAGER Oct 18, 2018 16:09
[2018-10-18 16:24] VITALS: BP 95/51
--- NOTE | 2018-10-18 19:21 | NUR ---
bedside report received from SAM BO, assume care of pt
--- NOTE | 2018-10-18 20:24 | NUR ---
c/o pain level 5/10 on numeric scale requested only one oxyir 5mg not 10mg, pt refused miralax, Colace & Senokot
--- NOTE | 2018-10-18 20:25 | NUR ---
assessments & interventions completed, see assessments & interventions, up in the chair visiting with family members
--- NOTE | 2018-10-18 21:15 | NUR ---
rates pain level 2/10 on numeric scale
[2018-10-19] MEDS: ACETAMINOPHEN 325 MG TABLET PO SCH ×5 (00:07→23:21)
--- NOTE | 2018-10-19 00:07 | NUR ---
scheduled Tylenol 650mg given, pain level 4/10 on numeric scale
--- NOTE | 2018-10-19 00:45 | NUR ---
resting quietly in bed, pain level 0/10 on flacc scale
[2018-10-19 05:31] VITALS: BP 101/67
--- NOTE | 2018-10-19 06:18 | NUR ---
scheduled tylenol 650 mg po pain level 4/10 on numeric scale
--- NOTE | 2018-10-19 06:52 | NUR ---
rates pain level 2/10 on numeric scale
--- NOTE | 2018-10-19 07:23 | NUR ---
bedside report given to MONICA BO
--- NOTE | 2018-10-19 08:05 | Progress Note ---
[facility] 10/19/18 0805: Subjective Date Seen by a Provider: Oct 19, 2018 Time Seen by a Provider: 07:05 Subjective/Events-last exam Martín has stable, normal vitals. She is voiding and stooling normally. She is saying the consistency of her stools are almost to her normal consistency. She is still taking acetaminophen + oxycodone + apixaban. She is sleeping well with intermittent waking due to pain. She is eating well and drinking well. PT/OT is going well. Ambulating well with the walker. ROS: -: SOB/Chest pain, N/V/D, Fever/Chills, Syncope Objective Exam Last Set of Vital Signs Vital Signs Date Time Temp Pulse Resp B/P (MAP) Pulse Ox O2 Delivery O2 Flow Rate FiO2 10/19/18 05:31 97.7 61 16 101/67 (78) 99 Room Air Capillary Refill : Less Than 3 Seconds I&O Intake and Output 10/19/18 00:00 Intake Total 1430 ml Balance 1430 ml Intake Oral 1430 ml # Voids 6 General: Oriented X3, No Acute Distress Lungs: Clear to Auscultation, Normal Air Movement Heart: Regular Rate Abdomen: No Tenderness Extremities: No Edema, Normal Pulses Assessment/Plan Assessment/Plan Assess & Plan/Chief Complaint Assessment: 1. ROM in the L LE is increasing with a decrease in pain upon motion 2. Bowel movement have become more regular with frequency and consistently. 3. Reduced pain overall. 4. Affect and determination remain high. Plan: 1. Continue to participate in PT/OT 2. Use laxatives as needed with BM 3. Continue to treat pain with Acetaminophen and Oxycodone as needed. Clinical Quality Measures DVT/VTE Risk/Contraindication: Risk Factor Score Per Nursin RFS Level Per Nursing on Admit: 4+=Very High JU DOBBINS DO 10/20/18 0825: Supervisory-Addendum Brief Verification & Attestation Participated in pt care: history, MDM, physical Personally performed: exam, history, MDM, supervision of care Care discussed with: Medical Student Procedures: n/a Results interpretation: Verified all documentation Verification and Attestation of Medical Student E/M Service A medical student performed and documented this service in my presence. I reviewed and verified all information documented by the medical student and made modifications to such information, when appropriate. I personally performed the physical exam and medical decision making. Ju Dobbins, Oct 20, 2018,08:25 [facility] Oct 19, 2018 08:05 JU DOBBINS DO Oct 20, 2018 08:25
[2018-10-19] MEDS: APIXABAN 2.5 MG (ELIQUIS) TABLET PO SCH ×2 (08:20→20:49)
[2018-10-19] MEDS: BISACODYL 5 MG (DULCOLAX) TABLET PO SCH (08:38)
[2018-10-19] MEDS: DOCUSATE SODIUM 100 MG (COLACE) CAP PO SCH ×2 (08:38→20:49)
[2018-10-19] MEDS: POLYETHYLENE GLYCOL 17 GM (MIRALAX) PACK PO SCH ×2 (08:38→20:50)
[2018-10-19] MEDS: SENNOSIDES 8.6 MG (SENOKOT) TAB PO SCH ×2 (08:38→20:50)
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
--- NOTE | 2018-10-19 10:34 | Occupational Ther Daily Note ---
OT Current Status-Daily Note Subjective Pt seen in recliner, finished with breakfast. Pt stated 5/10 pain in LLE. Pt agreeable to OT tx session. Mental Status/Objective Patient Orientation: Normal For Age Therapy Code Descriptions/Definitions Functional [place] Measure: 0=Not Assessed/NA 4=Minimal Assistance 1=Total Assistance 5=Supervision or Setup 2=Maximal Assistance 6=Modified [place] 3=Moderate Assistance 7=Complete [place] ADL-Treatment Therapy Code Descriptions/Definitions Functional [place] Measure: 0=Not Assessed/NA 4=Minimal Assistance 1=Total Assistance 5=Supervision or Setup 2=Maximal Assistance 6=Modified [place] 3=Moderate Assistance 7=Complete [place] Therapy Quality Codes: 6 Independent with activity with or without an assistive device 5 Patient requires set up or clean up by helper. Patient completes activity by themselves 4 Supervision or touching assist (CGA). [place] provide cues , steadying assist 3 The helper provides less than half the effort to complete the activity 2 The helper provides more than half the effort to complete the activity 1 Dependent. The helper does all the effort to complete an activity 7 Patient refused to complete or attempt activity 9 The patient did not perform the activity before the current illness or injury 88 Not attempted due to Medical conditions or safety concerns Eating (FIM): 7 Eating (QC): 6 Grooming (FIM): 7 (Completed hair brushing and grooming with IND) Lower Body Dressing (FIM): 6 (Increased time during LB dressing after toileting) Lower Body Dressing (QC): 6 On/Off Footwear (QC): 4 (Completed sock donning with sock aide, min physical assist for LLE sock) Toileting (FIM): 6 (Used FWW for ambulation, grab bars, and increased time.) Toileting Hygiene (QC): 7 Transfers (B, C, W/C) (FIM): 5 (SUP) Toilet/Commode Transfer (FIM): 6 Toilet Transfer (QC): 6 Tub Transfer(FIM): 4 (Min assist for cueing for shower transfers. Pt practiced dry shower transfers without use of tub bench 2x. Pt stepped over tub, utilized grab bars and CGA for safety. Pt completed 2nd standing transfer, hesitant to begin. Pt able to complete with increased pain, CGA for safet. ) Other Treatment Pt completed tub transfers to practice for friend's home. Friend has tub/ shower combo with glass door. Pt will ask for pictures of bathroom to ensure proper d/c recommendations and preparation. Pt completed 2 dry shower transfers with CGA, grab bar usage, and skilled cues and s/u for safety and completion. Pt ambulated with FWW to laundry room, completed laundry with s/u. Pt ambulated to gym with FWW, sitting EOM pt completed UE exercises including bicep, tricep, internal/ external shoulder rotators, and back with 1 set of 15 reps each to increase UE endurance and strength for ADL/ IADL completion. Pt stated pain subsided a bit during exercises/ sitting. Pt ambulated to bathroom within room utilizing FWW, completed transfer with mod I. pt sat in recliner chair end of session, call light within reach and all needs met. Education OT Patient Education: Correct positioning, Energy conservation, Exercise program, Modified ADL techniques, Progress toward Goal/Update tx plan, Purpose of tx/functional activities, Safety issues, Transfer techniques, Use of adapted equipment Teaching Recipient: Patient Teaching Methods: Demonstration, Discussion Response to Teaching: Verbalize Understanding, Return Demonstration OT Short Term Goals Short Term Goals Eating(FIM): 7 (met) Grooming(FIM): 6 (met) Bathing(FIM): 4 (met) Upper Body Dressing(FIM): 3 (met) Lower Body Dressing(FIM): 3 (met) Toileting(FIM): 4 (met) Transfers (B,C,W/C) (FIM): 5 Toilet/Commode Transfer(FIM): 6 (met) Tub Transfer(FIM): 5 Shower Transfer(FIM): 5 Additional Short Term Goals: 1-Demonstrate ADL Tasks, 2-Verbalize Understanding, 3-ImproveStrength/Tye 1=Demonstrate adherence to instructed precautions during ADL tasks. 2=Patient will verbalize/demonstrate understanding of assistive devices/modifications for ADL. 3=Patient will improve strength/tolerance for activity to enable patient to perform ADL's. OT Nursing Home Goals Nursing Home Goals Time Frame: Oct 31, 2018 Eating (FIM): 7 Eating (QC): 6 Groomin Oral Hygiene (QC): 6 Bathing(FIM): 7 Shower/Bathe Self (QC): 6 Upper Body Dressing(FIM): 7 Upper Body Dressing (QC): 6 Lower Body Dressing(FIM): 7 Lower Body Dressing (QC): 6 On/Off Footwear (QC): 6 Toileting(FIM): 7 Toileting Hygiene (QC): 6 Transfers (B,C,W/C) (FIM): 6 Toilet/Commode Transfer(FIM): 6 Toilet/Commode Transfer (QC): 6 Tub Transfer(FIM): 6 Shower Transfer(FIM): 6 Comprehension(FIM): 6 Expression (FIM): 6 Social Interaction(FIM): 6 Problem Solving(FIM): 6 Memory(FIM): 6 Additional Goals: 1-Demonstrate ADL Tasks, 2-Verbalize Understanding, 3- ImproveStrength/Tye 1=Demonstrate adherence to instructed precautions during ADL tasks. 2=Patient will verbalize/demonstrate understanding of assistive devices/modifications for ADL. 3=Patient will improve strength/tolerance for activity to enable patient to perform ADL's. OT Education/Plan Problem List/Assessment Assessment: Decreased Activ Tolerance, Decreased UE Strength, Impaired I ADL's, Impaired Self-Care Skills Pt presents will functional limitations affecting areas of ADLs and functional mobility with the above mentioned deficits. Pt will benefit from skilled OT services to increase independence with daily activities and safe transition to home. Discharge Recommendations Plan/Recommendations: Continue POC Comment D/c recommendations to be determined. Treatment Plan/Plan of Care Treatment,Training & Education: Yes Patient would benefit from OT for education, treatment and training to promote independence in ADL's, mobility, safety and/or upper extremity function for ADL's. Plan of Care: ADL Retraining, Caregiver Training, Functional Mobility, Group Exercise/Act as Ind, UE Funct Exercise/Act Treatment Duration: Oct 31, 2018 Frequency: At least 5 of 7 days/Wk (IRF) Estimated Hrs Per Day: 1 hour per day (60-90 minutes) Agreement: Yes Rehab Potential: Good Time/GCodes Start Time: 09:25 Stop Time: 10:25 Total Time Billed (hr/min): 60 Billed Treatment Time 1 ADL (15) FA 2 (30) EX (15) SHIRLEY ARIAS OTR Oct 19, 2018 10:34
--- NOTE | 2018-10-19 12:15 | Physical Therapy Daily Note ---
PT Daily Note-Current Subjective Pt. agrees to Rx. States her pain is better but still at 6/10 with some TRFs and exercises for hip abd and heel slides Pain Numeric Pain Scale: 6 Location: Left Location Body Site: Hip (and pelvis) Pain Description: Pressure Mental Status Patient Orientation: Normal For Age Transfers Therapy Code Descriptions/Definitions Functional [place] Measure: 0=Not Assessed/NA 4=Minimal Assistance 1=Total Assistance 5=Supervision or Setup 2=Maximal Assistance 6=Modified [place] 3=Moderate Assistance 7=Complete [place] Therapy Quality Codes: 6 Independent with activity with or without an assistive device 5 Patient requires set up or clean up by helper. Patient completes activity by themselves 4 Supervision or touching assist (CGA). [place] provide cues , steadying assist 3 The helper provides less than half the effort to complete the activity 2 The helper provides more than half the effort to complete the activity 1 Dependent. The helper does all the effort to complete an activity 7 Patient refused to complete or attempt activity 9 The patient did not perform the activity before the current illness or injury 88 Not attempted due to Medical conditions or safety concerns Transfers (B, C, W/C) (FIM): 4 Scootin Rollin Supine to/from Sit: 4 (assist LEs L>R) Sit to/from Stand: 6 Weight Bearing Right Lower Extremity: Right Weight Bearing/Tolerated Left Lower Extremity: Left Weight Bearing/Tolerated Gait Training Does the Patient Walk?: Yes Gait (FIM): 5 Distance (FIM): 3=150 ft (175x2) Gait Level of Assist: 5 Gait Persons Needed: 1 Gait Assistive Device: FWW low with heavy wt bearing on FWW to relieve LLE and pelvis Exercises Supine Ex: Bridging, Ankle pumps, Pelvic tilt, Quad Set, Rolling, Glut sets, Heel Slides, Short Arc Quads, Scooting, Straight leg raise ([id number] L), Hip abd/add (ssisted left) Supine Reps: 15 (slowly) hooklying mini marches x12 Assessment Current Status: Good Progress pain limitations PT Short Term Goals Short Term Goals Time Frame: Oct 18, 2018 Transfers (B,C,W/C) (FIM): 5 Gait (FIM): 4 Distance (FIM): 3=150 ft Gait Assistive Device: Cane Single Point PT Electrical Engineering Manager Goals Electrical Engineering Manager Goals PT Intermediate Goals Time Frame: Oct 25, 2018 Transfers (B,C,W/C) (FIM): 7 Sit to Lying (QC): 6 Lying-Sitting on Side/Bed(QC): 6 Sit to Stand (QC): 6 Roll Left to Right (QC): 6 Chair/Ghq-jj-Rxcbj Xfer(QC): 6 Car Transfer (QC): 6 Does the Patient Walk: Yes Gait (FIM): 6 Gait distance (FIM): 3=150 ft Walk 10 feet (QC): 6 Walk 10ft-Uneven Surface(QC): 6 Walk 50ft with 2 Turns (QC): 6 Walk 150 ft (QC): 6 Gait Level of Assist: 6 Gait Assistive Device: Cane Single Point (or least restrictive safe device) Does the Pt use WC or Scooter?: No Stairs (FIM): 6 # of Steps: 12 1 Step (curb) (QC): 6 4 Steps (QC): 6 12 Steps (QC): 6 Picking up an Object (QC): 88 PT Plan Treatment/Plan Treatment Plan: Continue Plan of Care Treatment Plan: Bed Mobility, Education, Functional Activity Tye, Functional Strength, Group Therapy, Gait, Safety, Therapeutic Exercise, Transfers Treatment Duration: Oct 25, 2018 Frequency: At least 5 of 7 days/Wk (IRF) Estimated Hrs Per Day: 1.5 hours per day Patient and/or Family Agrees t: Yes Safety Risks/Education Patient Education: Gait Training, Transfer Techniques, Correct Positioning, Disease Process, Safety Issues Teaching Recipient: Patient Teaching Methods: Demonstration, Discussion Response to Teaching: Verbalize Understanding, Return Demonstration, Reinforcement Needed Time/GCodes Time In: 1115 Time Out: 1205 Total Billed Treatment Time: 50 Total Billed Treatment 1,GT20m,EX30m RAUL KEITA PTA Oct 19, 2018 12:15
--- NOTE | 2018-10-19 14:31 | Therapy Group Daily Note ---
Therapy Daily Group Note Patient Education Topic Exercises, Other List Below (benefits of exercise, ARU practices and protocols) Exercises LE Seated Exercise, Sit to/from Stand, UE Exercise Session Ratio (pt:therapist): 4:1 Goal of Session: Education on ARU Expectations, UE/LE Strengthing, Safety with Transfers Goal Met for this Session: Yes Pt Benefit of Group: Socialization, Other (understanding benefits of exercise and activity, "exercise anytime") Other/Notes Pt. participated in group PT session. Pt. was active participant, walked to and from with SBA. Pt. shared name, hometown and some of her favorite activities. Pts. were educated in ARU practices, requirements, scheduling etc. Education regarding benefits of exercise and activity as well as exercise they can do any time, ie in bed or seated etc. Pts read and demonstrated exercises from illustrations and instructions on cards and lead others in group exercise for U&L extremities. Scooting forward and sit to stand TRFs were focus of TRF education with each participant progressing through to stance with good technique. Pt. to room after with SBAbaltazar at hand all needs met Start Time: 13:00 Stop Time: 14:15 Total Billed Treatment Time: 75 Total Billed Treatment 1,GRP RAUL KEITA TECHNICAL ADMINISTRATOR Oct 19, 2018 14:31
[2018-10-19 16:18] VITALS: BP 95/69
--- NOTE | 2018-10-19 16:38 | NUR ---
GLOVE OPERATOR provided patient with requested medical records from [facility]
[2018-10-20 05:30] VITALS: BP 133/79
[2018-10-20] MEDS: ACETAMINOPHEN 325 MG TABLET PO SCH ×3 (05:31→17:30)
[2018-10-20] MEDS: BISACODYL 5 MG (DULCOLAX) TABLET PO SCH (09:00)
[2018-10-20] MEDS: SENNOSIDES 8.6 MG (SENOKOT) TAB PO SCH ×2 (09:00→20:56)
[2018-10-20] MEDS: POLYETHYLENE GLYCOL 17 GM (MIRALAX) PACK PO SCH ×2 (09:00→20:55)
[2018-10-20] MEDS: DOCUSATE SODIUM 100 MG (COLACE) CAP PO SCH ×2 (09:00→20:55)
[2018-10-20] MEDS: APIXABAN 2.5 MG (ELIQUIS) TABLET PO SCH ×2 (09:01→20:53)
--- NOTE | 2018-10-20 10:27 | Physical Therapy Daily Note ---
PT Daily Note-Current Subjective Pt agreeable to PT session. States she would like to work on walking and NuStep today Pain Numeric Pain Scale: 5-Moderate Pain Comment: L hip, groin and low back, denies need for pain meds at this time, Appearance Pt sitting up in chair eating breakfast upon 1st attempt for PT session. Upon arrival 2nd time, pt sitting up in recliner awake and alert, agreeable to PT session. At end of session, pt requesting and assisted to bathroom Mental Status Patient Orientation: Person, Place, Time, Eyes Open, Situation uses back brace when she feels the need for it. Denies need this session Transfers Therapy Code Descriptions/Definitions Functional [place] Measure: 0=Not Assessed/NA 4=Minimal Assistance 1=Total Assistance 5=Supervision or Setup 2=Maximal Assistance 6=Modified [place] 3=Moderate Assistance 7=Complete [place] Therapy Quality Codes: 6 Independent with activity with or without an assistive device 5 Patient requires set up or clean up by helper. Patient completes activity by themselves 4 Supervision or touching assist (CGA). [place] provide cues , steadying assist 3 The helper provides less than half the effort to complete the activity 2 The helper provides more than half the effort to complete the activity 1 Dependent. The helper does all the effort to complete an activity 7 Patient refused to complete or attempt activity 9 The patient did not perform the activity before the current illness or in jury 88 Not attempted due to Medical conditions or safety concerns Transfers (B, C, W/C) (FIM): 5 Sit to/from Stand: 5 (SBA) skilled inst provided for safety and hand placement, pt able to follow through rest of session with good recall Weight Bearing Right Lower Extremity: Right Weight Bearing/Tolerated Left Lower Extremity: Left Weight Bearing/Tolerated Gait Training Does the Patient Walk?: Yes Gait (FIM): 5 Distance (FIM): 2=595-02 ft Distance: 150 x2 Gait Level of Assist: 5 (SBA provided) Gait Persons Needed: 1 Gait Assistive Device: FWW antalgic, heavily relies on walker with UE's during LLE stance phase, good step through pattern with fair step through toward end of gait distances, decreased WB LLE, steady without LOB or unsteadiness, fatigue by end of session Exercises NuStep Minutes: 15 NuStep Workload: 4 (Seat 5, arms 7) Treatments transfers, education, safety, strength, balance, gait, activity tolerance, functional mobility, toileting Assessment Current Status: Good Progress PT Short Term Goals Short Term Goals Time Frame: Oct 18, 2018 Transfers (B,C,W/C) (FIM): 5 Gait (FIM): 4 Distance (FIM): 3=150 ft Gait Assistive Device: Cane Single Point PT Senior Living Goals [place] Goals PT Senior Living Goals Time Frame: Oct 25, 2018 Transfers (B,C,W/C) (FIM): 7 Sit to Lying (QC): 6 Lying-Sitting on Side/Bed(QC): 6 Sit to Stand (QC): 6 Rollin Roll Left to Right (QC): 6 Chair/Ron-uq-Vjrwr Xfer(QC): 6 Car Transfer (QC): 6 Does the Patient Walk: Yes Gait (FIM): 6 Gait distance (FIM): 3=150 ft Walk 10 feet (QC): 6 Walk 10ft-Uneven Surface(QC): 6 Walk 50ft with 2 Turns (QC): 6 Walk 150 ft (QC): 6 Gait Level of Assist: 6 Gait Assistive Device: Cane Single Point (or least restrictive safe device) Does the Pt use WC or Scooter?: No Stairs (FIM): 6 # of Steps: 12 1 Step (curb) (QC): 6 4 Steps (QC): 6 12 Steps (QC): 6 Picking up an Object (QC): 88 PT Plan Treatment/Plan Treatment Plan: Continue Plan of Care Treatment Plan: Bed Mobility, Education, Functional Activity Tye, Functional Strength, Group Therapy, Gait, Safety, Therapeutic Exercise, Transfers Treatment Duration: Oct 25, 2018 Frequency: At least 5 of 7 days/Wk (IRF) Estimated Hrs Per Day: 1.5 hours per day Patient and/or Family Agrees t: Yes Safety Risks/Education Patient Education: Gait Training, Transfer Techniques, Safety Issues Teaching Recipient: Patient Teaching Methods: Demonstration, Discussion Response to Teaching: Verbalize Understanding, Return Demonstration Time/GCodes Time In: 1010 Time Out: 1039 Total Billed Treatment Time: 29 Total Billed Treatment 1 visit, GT x1 unit, EX x1 unit LINAVERONIQUE CHOPRA Oct 20, 2018 10:27
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
[2018-10-20 17:44] VITALS: BP 110/74
[2018-10-21] MEDS: ACETAMINOPHEN 325 MG TABLET PO SCH ×5 (00:19→23:24)
[2018-10-21 05:43] VITALS: BP 111/71
[2018-10-21] MEDS: BISACODYL 5 MG (DULCOLAX) TABLET PO SCH (09:00)
[2018-10-21] MEDS: SENNOSIDES 8.6 MG (SENOKOT) TAB PO SCH ×2 (09:00→20:21)
[2018-10-21] MEDS: POLYETHYLENE GLYCOL 17 GM (MIRALAX) PACK PO SCH ×2 (09:00→20:21)
[2018-10-21] MEDS: DOCUSATE SODIUM 100 MG (COLACE) CAP PO SCH ×2 (09:00→20:17)
[2018-10-21] MEDS: APIXABAN 2.5 MG (ELIQUIS) TABLET PO SCH ×2 (11:11→20:17)
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
[2018-10-21 18:00] VITALS: BP 115/79
[2018-10-22 06:08] VITALS: BP 101/64
[2018-10-22 06:33] LABS: BASOPHILS % (AUTO) 0 % (0-10); EOSINOPHILS # (AUTO) 0.3 10^3/uL (0.0-0.3); EOSINOPHILS % (AUTO) 3 % (0-10); HEMATOCRIT 35 % (35-52); HEMOGLOBIN 11.6 G/DL (11.5-16.0); LYMPHOCYTES # (AUTO) 2.7 X 10^3 (1.0-4.0); LYMPHOCYTES % (AUTO) 30 % (12-44); MEAN CORPUSCULAR HEMOGLOBIN 29 PG (25-34); MEAN CORPUSCULAR HGB CONC 34 G/DL (32-36); MEAN CORPUSCULAR VOLUME 85 FL (80-99); MEAN PLATELET VOLUME 9.6 FL (7.4-10.4); MONOCYTES # (AUTO) 0.5 X 10^3 (0.0-1.0); MONOCYTES % (AUTO) 5 % (0-12); NEUTROPHILS # (AUTO) 5.7 X 10^3 (1.8-7.8); NEUTROPHILS % (AUTO) 62 % (42-75); PLATELET COUNT 590 10^3/uL (130-400); RED CELL DISTRIBUTION WIDTH 13.2 % (10.0-14.5); WHITE BLOOD COUNT 9.1 10^3/uL (4.3-11.0)
[2018-10-22 06:52] LABS: ALANINE AMINOTRANSFERASE 13 U/L (0-55); ALBUMIN 3.8 GM/DL (3.2-4.5); ALKALINE PHOSPHATASE 145 U/L (40-136); BILIRUBIN,TOTAL 0.3 MG/DL (0.1-1.0); BUN/CREATININE RATIO 14; CALCIUM 9.6 MG/DL (8.5-10.1); CARBON DIOXIDE 22 MMOL/L (21-32); CHLORIDE 107 MMOL/L (98-107); CREATININE SERUM 0.66 MG/DL (0.60-1.30); GFR ESTIMATED > 60; GLUCOSE 86 MG/DL (70-105); POTASSIUM 4.6 MMOL/L (3.6-5.0); SODIUM 139 MMOL/L (135-145); TOTAL PROTEIN 6.8 GM/DL (6.4-8.2)
[2018-10-22] MEDS: ACETAMINOPHEN 325 MG TABLET PO SCH ×4 (07:31→23:45)
--- NOTE | 2018-10-22 08:23 | Progress Note ---
[facility]URVI [facility] 10/22/18 0823: Subjective Date Seen by a Provider: Oct 22, 2018 Time Seen by a Provider: 07:15 Subjective/Events-last exam Vitals are normal and stable Slept well Eating and drinking well. Weekend went well. Pain in the L LE is getting better. Her ROM is improving She is able to ambulate better with the walker. L Lateral mallelous abrasion healing but draining a little. Concerned about it ROS: + : n/a - : SOB/Chest pain, Fever/Chills, N/V/D '[place]' is doing very well. She is ambulating well with the walker and handling PT/OT very well. She does have an abrasion on her L lateral malelous that seems to be healing. I feel that she will be ready to leave at the end of this week. Objective Exam Last Set of Vital Signs Vital Signs Date Time Temp Pulse Resp B/P (MAP) Pulse Ox O2 Delivery O2 Flow Rate FiO2 10/22/18 06:08 97.0 92 20 101/64 (76) 96 Room Air Capillary Refill : Less Than 3 Seconds I&O Intake and Output 10/22/18 00:00 Intake Total 1625 ml Balance 1625 ml Intake Oral 1625 ml # Voids 6 # Bowel Movements 1 General: Alert, Oriented X3, Cooperative, No Acute Distress Lungs: Clear to Auscultation, Normal Air Movement Heart: Regular Rate, No Murmurs Abdomen: No Tenderness Extremities: No Edema Results Lab Laboratory Tests 10/22/18 05:45: White Blood Count 9.1, Red Blood Count 4.07L, Hemoglobin 11.6, Hematocrit 35, Mean Corpuscular Volume 85, Mean Corpuscular Hemoglobin 29, Mean Corpuscular Hemoglobin Concent 34, Red Cell Distribution Width 13.2, Platelet Count 590H, Mean Platelet Volume 9.6, Neutrophils (%) (Auto) 62, Lymphocytes (%) (Auto) 30, Monocytes (%) (Auto) 5, Eosinophils (%) (Auto) 3, Basophils (%) (Auto) 0, Neutrophils # (Auto) 5.7, Lymphocytes # (Auto) 2.7, Monocytes # (Auto) 0.5, Eosinophils # (Auto) 0.3, Basophils # (Auto) 0.0, Sodium Level 139, Potassium Level 4.6, Chloride Level 107, Carbon Dioxide Level 22, Anion Gap 10, Blood Urea Nitrogen 9, Creatinine 0.66, Estimat Glomerular Filtration Rate > 60, BUN/Creatinine Ratio 14, Glucose Level 86, Calcium Level 9.6, Corrected Calcium 9.8, Total Bilirubin 0.3, Aspartate Amino Transf (AST/SGOT) 14, Alanine Aminotransferase (ALT/SGPT) 13, Alkaline Phosphatase 145H, Total Protein 6.8, Albumin 3.8 Assessment/Plan Assessment/Plan Assess & Plan/Chief Complaint Assessment: 1. ROM in the L LE is increasing with a decrease in pain upon motion 2. Bowel movement have become more regular with frequency and consistently. 3. Reduced pain overall. 4. Affect and determination remain high. Plan: 1. Continue to participate in PT/OT 2. Use laxatives as needed with BM 3. Continue to treat pain with Acetaminophen and Oxycodone as needed. Clinical Quality Measures DVT/VTE Risk/Contraindication: Risk Factor Score Per Nursin RFS Level Per Nursing on Admit: 4+=Very High JU DOBBINS DO 10/22/18 2009: Supervisory-Addendum Brief Verification & Attestation Participated in pt care: history, MDM, physical Personally performed: exam, history, MDM, supervision of care Care discussed with: Medical Student Procedures: n/a Results interpretation: Verified all documentation Verification and Attestation of Medical Student E/M Service A medical student performed and documented this service in my presence. I reviewed and verified all information documented by the medical student and made modifications to such information, when appropriate. I personally performed the physical exam and medical decision making. Ju Dobbins Oct 22, 2018,20:09 [facility] Oct 22, 2018 08:23 JU DOBBINS DO Oct 22, 2018 20:09
--- NOTE | 2018-10-22 08:28 | Occupational Ther Daily Note ---
OT Current Status-Daily Note Subjective Pt awake in chair, breakfast completed. Pt agreeable to OT treatment session. C/o pain in mid-back upon walking with FWW Mental Status/Objective Patient Orientation: Normal For Age Therapy Code Descriptions/Definitions Functional [place] Measure: 0=Not Assessed/NA 4=Minimal Assistance 1=Total Assistance 5=Supervision or Setup 2=Maximal Assistance 6=Modified [place] 3=Moderate Assistance 7=Complete [place] ADL-Treatment Therapy Code Descriptions/Definitions Functional [place] Measure: 0=Not Assessed/NA 4=Minimal Assistance 1=Total Assistance 5=Supervision or Setup 2=Maximal Assistance 6=Modified [place] 3=Moderate Assistance 7=Complete [place] Therapy Quality Codes: 6 Independent with activity with or without an assistive device 5 Patient requires set up or clean up by helper. Patient completes activity by themselves 4 Supervision or touching assist (CGA). [place] provide cues , steadying assist 3 The helper provides less than half the effort to complete the activity 2 The helper provides more than half the effort to complete the activity 1 Dependent. The helper does all the effort to complete an activity 7 Patient refused to complete or attempt activity 9 The patient did not perform the activity before the current illness or injury 88 Not attempted due to Medical conditions or safety concerns Eating (FIM): 7 Eating (QC): 6 Oral Hygiene (QC): 7 Bathing (FIM): 5 (SBA for standing during kourtney hygiene. seated in shower with bath bench, utilized long handled sponge. Supplies set next to pt within shower.) Shower/Bathe Self (QC): 4 (SBA for kourtney hygiene in standing) Upper Body (FIM): 6 (increased time. Pt gathered clothing from closet) Upper Body Dressing (QC): 6 (increased time.) Lower Body Dressing (FIM): 3 (Threading BLE due to tight pants) Lower Body Dressing (QC): 3 On/Off Footwear (QC): 5 (s/u for slide on sandals) Toileting (FIM): 6 (increased time) Toileting Hygiene (QC): 6 Transfers (B, C, W/C) (FIM): 6 (FWW use) Toilet/Commode Transfer (FIM): 6 (utilized FWW for transfer and grab bars. ) Toilet Transfer (QC): 6 Tub Transfer(FIM): 4 (CGA for standing transfer into shower. Pt moves walker toward edge of tub, stepping in R then L foot. Pt utilizes one grab bar for support during transfer. Increased time noted.) Other Treatment Pt completed showering on this date. Pt able to transfer, stepping over bath tub ledge, with CGA. Pt transferred from bathtub to floor with CGA as well with use of FWW. Pt ambulated to gym to complete UE exercises (15 reps of 5 exercises focusing on increased strength/ endurance for ADL completion.) Pt ambulated to laundry room with FWW, gathered clothes that were clean. Pt educated on correct positioning of spine while turning to speak with others. Pt return-demonstrated correct spinal alignment. Pt sat in recliner chair, all needs met and call light within reach. Education OT Patient Education: Correct positioning, Modified ADL techniques, Progress toward Goal/Update tx plan, Purpose of tx/functional activities, Reviewed precautions, Rehab process, Safety issues, Transfer techniques, Use of adapted equipment Teaching Recipient: Patient Teaching Methods: Demonstration, Discussion Response to Teaching: Verbalize Understanding, Return Demonstration OT Short Term Goals Short Term Goals Eating(FIM): 7 (met) Grooming(FIM): 6 (met) Bathing(FIM): 4 (met) Upper Body Dressing(FIM): 3 (met) Lower Body Dressing(FIM): 3 (met) Toileting(FIM): 4 (met) Transfers (B,C,W/C) (FIM): 5 Toilet/Commode Transfer(FIM): 6 (met) Tub Transfer(FIM): 5 Shower Transfer(FIM): 5 Additional Short Term Goals: 1-Demonstrate ADL Tasks, 2-Verbalize Understanding, 3-ImproveStrength/Tye 1=Demonstrate adherence to instructed precautions during ADL tasks. 2=Patient will verbalize/demonstrate understanding of assistive devices/modifications for ADL. 3=Patient will improve strength/tolerance for activity to enable patient to perform ADL's. OT Senior Care Goals Senior Care Goals Time Frame: Oct 31, 2018 Eating (FIM): 7 Eating (QC): 6 Groomin Oral Hygiene (QC): 6 Bathing(FIM): 7 Shower/Bathe Self (QC): 6 Upper Body Dressing(FIM): 7 Upper Body Dressing (QC): 6 Lower Body Dressing(FIM): 7 Lower Body Dressing (QC): 6 On/Off Footwear (QC): 6 Toileting(FIM): 7 Toileting Hygiene (QC): 6 Transfers (B,C,W/C) (FIM): 6 Toilet/Commode Transfer(FIM): 6 Toilet/Commode Transfer (QC): 6 Tub Transfer(FIM): 6 Shower Transfer(FIM): 6 Comprehension(FIM): 6 Expression (FIM): 6 Social Interaction(FIM): 6 Problem Solving(FIM): 6 Memory(FIM): 6 Additional Goals: 1-Demonstrate ADL Tasks, 2-Verbalize Understanding, 3-ImproveStrength/Tye 1=Demonstrate adherence to instructed precautions during ADL tasks. 2=Patient will verbalize/demonstrate understanding of assistive devices/modifications for ADL. 3=Patient will improve strength/tolerance for activity to enable patient to perform ADL's. OT Education/Plan Problem List/Assessment Assessment: Decreased Activ Tolerance Pt presents will functional limitations affecting areas of ADLs and functional mobility with the above mentioned deficits. Pt will benefit from skilled OT services to increase independence with daily activities and safe transition to home. Discharge Recommendations Plan/Recommendations: Continue POC Therapy Discharge Recommendati: Other, See Comments (Friend's home with friend's support) Equpiment Recommendations-D/C: Bath Chair, Sewing Machine Adjuster, Sock Aide, Dressing Stick Comment Pt plans to d/c to friends home. Pt treatment sessions modified to train/ educate pt on transfer and safety techniques for d/c to friend's home. Treatment Plan/Plan of Care Treatment,Training & Education: Yes Patient would benefit from OT for education, treatment and training to promote independence in ADL's, mobility, safety and/or upper extremity function for ADL's. Plan of Care: ADL Retraining, Caregiver Training, Functional Mobility, Group Exercise/Act as Ind, UE Funct Exercise/Act Treatment Duration: Oct 31, 2018 Frequency: At least 5 of 7 days/Wk (IRF) Estimated Hrs Per Day: 1 hour per day (60-90 minutes) Agreement: Yes Rehab Potential: Good Time/GCodes Start Time: 07:55 Stop Time: 09:25 Total Time Billed (hr/min): 90 Billed Treatment Time 1 ADL 4 EX 2 SHIRLEY ARIAS OTR Oct 22, 2018 08:28
[2018-10-22] MEDS: POLYETHYLENE GLYCOL 17 GM (MIRALAX) PACK PO SCH ×2 (09:00→21:51)
[2018-10-22] MEDS: SENNOSIDES 8.6 MG (SENOKOT) TAB PO SCH ×2 (09:00→21:51)
[2018-10-22] MEDS: DOCUSATE SODIUM 100 MG (COLACE) CAP PO SCH ×2 (09:00→21:50)
[2018-10-22] MEDS: BISACODYL 5 MG (DULCOLAX) TABLET PO SCH (09:00)
[2018-10-22] MEDS: APIXABAN 2.5 MG (ELIQUIS) TABLET PO SCH ×2 (10:15→21:51)
--- NOTE | 2018-10-22 12:27 | NUR ---
Upon reviewing patient's progress during morning huddle, it was determined the patient could likely dismiss this 10/26/18. [facility] notified of this information.
--- NOTE | 2018-10-22 13:00 | NUR ---
REQUESTED CELESTINA, WOUND NURSE, LOOK AT LEFT ANKLE WOUND. IS YELLOW IN CENTER, BUT HE STATES GOOD HEALING. WOUND IRRIGATED WITH NORMAL SALINE.
--- NOTE | 2018-10-22 13:15 | Physical Therapy Daily Note ---
PT Daily Note-Current Subjective Pt. agrees to Rx. States she is feeling like she needs to have further BMs but cant,not like she is constipated but "might need to go more" Pain Numeric Pain Scale: 4 Location: Left Location Body Site: Hip (anterior) Pain Description: Pressure Mental Status Patient Orientation: Normal For Age Transfers Therapy Code Descriptions/Definitions Functional [place] Measure: 0=Not Assessed/NA 4=Minimal Assistance 1=Total Assistance 5=Supervision or Setup 2=Maximal Assistance 6=Modified [place] 3=Moderate Assistance 7=Complete [place] Therapy Quality Codes: 6 Independent with activity with or without an assistive device 5 Patient requires set up or clean up by helper. Patient completes activity by themselves 4 Supervision or touching assist (CGA). [place] provide cues , steadying assist 3 The helper provides less than half the effort to complete the activity 2 The helper provides more than half the effort to complete the activity 1 Dependent. The helper does all the effort to complete an activity 7 Patient refused to complete or attempt activity 9 The patient did not perform the activity before the current illness or injury 88 Not attempted due to Medical conditions or safety concerns Transfers (B, C, W/C) (FIM): 5 Scootin Rollin Supine to/from Sit: 5 (needs instruction in technique for bringing LEs to edge of bed) Sit to/from Stand: 6 Bed to/from Chair: 6 Weight Bearing Right Lower Extremity: Right Weight Bearing/Tolerated Left Lower Extremity: Left Weight Bearing/Tolerated Gait Training Does the Patient Walk?: Yes Gait (FIM): 6 Distance (FIM): 3=150 ft (170x2) Gait Level of Assist: 6 Gait Persons Needed: 0 Gait Assistive Device: FWW Stair Training Stair Training: Handrails/: 1 handrail (and i SENIOR CONTROL SYSTEMS ENGINEER) Stairs (FIM): 2 #of Steps: 4 Stairs: Pattern: Step to Level of Assist: 3 pt. has 12-14 stairs at home, was able to use rail on left and SENIOR CONTROL SYSTEMS ENGINEER on right with good results x 8 steps Exercises Supine Ex: Ankle pumps, Quad Set, Rolling, Heel Slides, Short Arc Quads, Scooting, Straight leg raise (assisted), Hip abd/add Supine Reps: 12 Standing: Hip Abduction, Hamstring curls Standing Reps: 12 Assessment Current Status: Good Progress states she will have parents assist at home for 2 mo after she DCs PT Short Term Goals Short Term Goals Time Frame: Oct 18, 2018 Transfers (B,C,W/C) (FIM): 5 Gait (FIM): 4 Distance (FIM): 3=150 ft Gait Assistive Device: Cane Single Point PT Tool Turret Lathe Set Up Operator Goals Mcc Goals PT Mcc Goals Time Frame: Oct 25, 2018 Transfers (B,C,W/C) (FIM): 7 Sit to Lying (QC): 6 Lying-Sitting on Side/Bed(QC): 6 Sit to Stand (QC): 6 Rollin Roll Left to Right (QC): 6 Chair/Xfu-au-Iexjb Xfer(QC): 6 Car Transfer (QC): 6 Does the Patient Walk: Yes Gait (FIM): 6 Gait distance (FIM): 3=150 ft Walk 10 feet (QC): 6 Walk 10ft-Uneven Surface(QC): 6 Walk 50ft with 2 Turns (QC): 6 Walk 150 ft (QC): 6 Gait Level of Assist: 6 Gait Assistive Device: Cane Single Point (or least restrictive safe device) Does the Pt use WC or Scooter?: No Stairs (FIM): 6 # of Steps: 12 1 Step (curb) (QC): 6 4 Steps (QC): 6 12 Steps (QC): 6 Picking up an Object (QC): 88 PT Plan Treatment/Plan Treatment Plan: Bed Mobility, Education, Functional Activity Tye, Functional Strength, Group Therapy, Gait, Safety, Therapeutic Exercise, Transfers Treatment Duration: Oct 25, 2018 Frequency: At least 5 of 7 days/Wk (IRF) Estimated Hrs Per Day: 1.5 hours per day Patient and/or Family Agrees t: Yes Safety Risks/Education Patient Education: Gait Training, Transfer Techniques, Steps, Correct Positioning, Disease Process, Safety Issues Teaching Recipient: Patient Teaching Methods: Demonstration, Discussion Response to Teaching: Verbalize Understanding, Return Demonstration, Rein forcement Needed Time/GCodes Time In: 1115 Time Out: 1200 Total Billed Treatment Time: 45 Total Billed Treatment 1,[id number] RAUL KEITA TEMPLATE MAKER Oct 22, 2018 13:15
--- NOTE | 2018-10-22 14:28 | Physical Therapy Daily Note ---
PT Daily Note-Current Subjective Pt. agrees to rx and suggests her parents come along for education and training braxton regarding steps and assistance Pain Numeric Pain Scale: 4 Location: Left Location Body Site: Hip (anterior) Pain Description: Ache Mental Status Patient Orientation: Normal For Age Transfers Therapy Code Descriptions/Definitions Functional [place] Measure: 0=Not Assessed/NA 4=Minimal Assistance 1=Total Assistance 5=Supervision or Setup 2=Maximal Assistance 6=Modified [place] 3=Moderate Assistance 7=Complete [place] Therapy Quality Codes: 6 Independent with activity with or without an assistive device 5 Patient requires set up or clean up by helper. Patient completes activity by themselves 4 Supervision or touching assist (CGA). Gray provide cues , steadying assist 3 The helper provides less than half the effort to complete the activity 2 The helper provides more than half the effort to complete the activity 1 Dependent. The helper does all the effort to complete an activity 7 Patient refused to complete or attempt activity 9 The patient did not perform the activity before the current illness or injury 88 Not attempted due to Medical conditions or safety concerns in out bed TRF practiced multiple times with increased success and indep braxton with approach using right leg in first Weight Bearing Right Lower Extremity: Right Weight Bearing/Tolerated Left Lower Extremity: Left Weight Bearing/Tolerated Gait Training Gait Assistive Device: FWW [id number] with much emphasis on attempting to increase wt bearing as well as equal step length and good hip extension on left Stair Training Stair Training: Handrails/: 1 handrail (and FINANCE AND ADMINISTRATION MANAGER ascending, bilat hands on rail descending) 4 steps with family training with father present as pt interpreted all explanation Exercises Supine Ex: Ankle pumps, Pelvic tilt, Quad Set, Rolling, Glut sets, Heel Slides, Short Arc Quads, Scooting, Hip abd/add Supine Reps: 20 (x2) Assessment Current Status: Good Progress good progress in all phases ie gait and steps with family training today PT Short Term Goals Short Term Goals Time Frame: Oct 18, 2018 Transfers (B,C,W/C) (FIM): 5 Gait (FIM): 4 Distance (FIM): 3=150 ft Gait Assistive Device: Cane Single Point PT Cat Dog Or Other Pet Groomer Goals Cat Dog Or Other Pet Groomer Goals PT Fci Goals Time Frame: Oct 25, 2018 Transfers (B,C,W/C) (FIM): 7 Sit to Lying (QC): 6 Lying-Sitting on Side/Bed(QC): 6 Sit to Stand (QC): 6 Rollin Roll Left to Right (QC): 6 Chair/Arq-cx-Mpmsd Xfer(QC): 6 Car Transfer (QC): 6 Does the Patient Walk: Yes Gait (FIM): 6 Gait distance (FIM): 3=150 ft Walk 10 feet (QC): 6 Walk 10ft-Uneven Surface(QC): 6 Walk 50ft with 2 Turns (QC): 6 Walk 150 ft (QC): 6 Gait Level of Assist: 6 Gait Assistive Device: Cane Single Point (or least restrictive safe device) Does the Pt use WC or Scooter?: No Stairs (FIM): 6 # of Steps: 12 1 Step (curb) (QC): 6 4 Steps (QC): 6 12 Steps (QC): 6 Picking up an Object (QC): 88 PT Plan Treatment/Plan Treatment Plan: Continue Plan of Care Treatment Plan: Bed Mobility, Education, Functional Activity Tye, Functional Strength, Group Therapy, Gait, Safety, Therapeutic Exercise, Transfers Treatment Duration: Oct 25, 2018 Frequency: At least 5 of 7 days/Wk (IRF) Estimated Hrs Per Day: 1.5 hours per day Patient and/or Family Agrees t: Yes Safety Risks/Education Patient Education: Gait Training, Transfer Techniques, Steps, Correct Positioning, Disease Process, Safety Issues Teaching Recipient: Patient, Family Teaching Methods: Demonstration, Discussion Response to Teaching: Verbalize Understanding, Return Demonstration, Reinforcement Needed Time/GCodes Time In: 1335 Time Out: 1420 Total Billed Treatment Time: 45 Total Billed Treatment 1,FA30m,EX15m RAUL KEITA ELECTRICAL CONTINUITY TESTER Oct 22, 2018 14:28
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
[2018-10-22 18:17] VITALS: BP 105/65
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
[2018-10-23] MEDS: ACETAMINOPHEN 325 MG TABLET PO SCH ×3 (05:03→17:38)
[2018-10-23 06:05] VITALS: BP 99/64
[2018-10-23] MEDS: BISACODYL 5 MG (DULCOLAX) TABLET PO SCH (07:53)
[2018-10-23] MEDS: POLYETHYLENE GLYCOL 17 GM (MIRALAX) PACK PO SCH ×2 (07:53→20:30)
[2018-10-23] MEDS: SENNOSIDES 8.6 MG (SENOKOT) TAB PO SCH ×2 (07:53→20:30)
[2018-10-23] MEDS: DOCUSATE SODIUM 100 MG (COLACE) CAP PO SCH ×2 (07:53→20:27)
[2018-10-23] MEDS: APIXABAN 2.5 MG (ELIQUIS) TABLET PO SCH ×2 (07:54→20:27)
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
--- NOTE | 2018-10-23 09:22 | Occupational Ther Daily Note ---
OT Current Status-Daily Note Subjective Pt reclined in chair upon entry. Pt agreeable to OT tx session. Pt c/o minimal pain in back. Mental Status/Objective Patient Orientation: Normal For Age Therapy Code Descriptions/Definitions Functional [place] Measure: 0=Not Assessed/NA 4=Minimal Assistance 1=Total Assistance 5=Supervision or Setup 2=Maximal Assistance 6=Modified [place] 3=Moderate Assistance 7=Complete [place] ADL-Treatment Therapy Code Descriptions/Definitions Functional [place] Measure: 0=Not Assessed/NA 4=Minimal Assistance 1=Total Assistance 5=Supervision or Setup 2=Maximal Assistance 6=Modified [place] 3=Moderate Assistance 7=Complete [place] Therapy Quality Codes: 6 Independent with activity with or without an assistive device 5 Patient requires set up or clean up by helper. Patient completes activity by themselves 4 Supervision or touching assist (CGA). [place] provide cues , steadying assist 3 The helper provides less than half the effort to complete the activity 2 The helper provides more than half the effort to complete the activity 1 Dependent. The helper does all the effort to complete an activity 7 Patient refused to complete or attempt activity 9 The patient did not perform the activity before the current illness or injury 88 Not attempted due to Medical conditions or safety concerns Grooming (FIM): 6 (mod I for increased time for teeth brushing) Toileting (FIM): 6 (use of FWW) Toileting Hygiene (QC): 6 Transfers (B, C, W/C) (FIM): 6 (Use of FWW) Toilet/Commode Transfer (FIM): 6 (use of FWW) Toilet Transfer (QC): 6 Other Treatment Pt stated apprehension to talk of d/c. Pt stated she would like to continue working on walking endurance and shower transfers. Pt educated on d/c process and pt's abilities. Pt states she has 2-3 stairs to enter with grab bar on R ekaterina e. Pt's parents plan to stay with her within friend's home until confident- pt states mother can help dress, as her wound on L ankle is limiting her ability to dress with increased independent as she does not want it to be touched. Pt walked from room with FWW, to elevator, then outside with accompaniment and good awareness of others and navigation skills. Pt completed walking across different terrains at this date utilizing FWW (carpet, door ledges, slope with SBA, 2 stairs with use of grab bars and CGA). Pt completed UE exercises, focusing on triceps and back (3 sets of 10 sets) with red theraband with good endurance. Pt completed with c/o 6/10 pain in LLE during walk back to room. Pt does not take rest break when offered chair. Pt completes toileting with mod I. Pt ambulated with FWW to recliner, all needs met and call light in reach. Education OT Patient Education: Correct positioning, Energy conservation, Exercise program, Progress toward Goal/Update tx plan, Purpose of tx/functional activities, Rehab process, Safety issues Teaching Recipient: Patient Teaching Methods: Demonstration, Discussion Response to Teaching: Verbalize Understanding, Return Demonstration OT Short Term Goals Short Term Goals Eating(FIM): 7 (met) Grooming(FIM): 6 (met) Bathing(FIM): 4 (met) Upper Body Dressing(FIM): 3 (met) Lower Body Dressing(FIM): 3 (met) Toileting(FIM): 4 (met) Transfers (B,C,W/C) (FIM): 5 Toilet/Commode Transfer(FIM): 6 (met) Tub Transfer(FIM): 5 Shower Transfer(FIM): 5 Additional Short Term Goals: 1-Demonstrate ADL Tasks, 2-Verbalize Understanding, 3-ImproveStrength/Tye 1=Demonstrate adherence to instructed precautions during ADL tasks. 2=Patient will verbalize/demonstrate understanding of assistive devices/modifications for ADL. 3=Patient will improve strength/tolerance for activity to enable patient to perform ADL's. OT Biometrics Consultant Goals Skilled Nursing Goals Time Frame: Oct 31, 2018 Eating (FIM): 7 Eating (QC): 6 Groomin Oral Hygiene (QC): 6 Bathing(FIM): 7 Shower/Bathe Self (QC): 6 Upper Body Dressing(FIM): 7 Upper Body Dressing (QC): 6 Lower Body Dressing(FIM): 7 Lower Body Dressing (QC): 6 On/Off Footwear (QC): 6 Toileting(FIM): 7 Toileting Hygiene (QC): 6 Transfers (B,C,W/C) (FIM): 6 Toilet/Commode Transfer(FIM): 6 Toilet/Commode Transfer (QC): 6 Tub Transfer(FIM): 6 Shower Transfer(FIM): 6 Comprehension(FIM): 6 Expression (FIM): 6 Social Interaction(FIM): 6 Problem Solving(FIM): 6 Memory(FIM): 6 Additional Goals: 1-Demonstrate ADL Tasks, 2-Verbalize Understanding, 3-I mproveStrength/Tye 1=Demonstrate adherence to instructed precautions during ADL tasks. 2=Patient will verbalize/demonstrate understanding of assistive devices/modifications for ADL. 3=Patient will improve strength/tolerance for activity to enable patient to perform ADL's. OT Education/Plan Problem List/Assessment Assessment: Decreased Activ Tolerance, Impaired I ADL's, Impaired Self-Care Skills Pt presents will functional limitations affecting areas of ADLs and functional mobility with the above mentioned deficits. Pt will benefit from skilled OT services to increase independence with daily activities and safe transition to home. Discharge Recommendations Plan/Recommendations: Continue POC Treatment Plan/Plan of Care Treatment,Training & Education: Yes Patient would benefit from OT for education, treatment and training to promote independence in ADL's, mobility, safety and/or upper extremity function for ADL's. Plan of Care: ADL Retraining, Caregiver Training, Functional Mobility, Group Exercise/Act as Ind, UE Funct Exercise/Act Treatment Duration: Oct 31, 2018 Frequency: At least 5 of 7 days/Wk (IRF) Estimated Hrs Per Day: 1 hour per day (60-90 minutes) Agreement: Yes Rehab Potential: Good Time/GCodes Start Time: 08:07 Stop Time: 09:07 Total Time Billed (hr/min): 60 Billed Treatment Time 1 ADL (15), FA 2 (30), EX (15) SHIRLEY ARIAS OTR Oct 23, 2018 09:22
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
--- NOTE | 2018-10-23 12:06 | Physical Therapy Daily Note ---
PT Daily Note-Current Subjective Pt asleep in recliner upon arrival. Pt agrees to PT. Pain Numeric Pain Scale: 5-Moderate Pain Location: Left Location Body Site: Hip Pain Description: Ache, Chronic Comment: Pt reports pain in L hip & low back, describes Sciatic like pain. Mental Status Patient Orientation: Person, Place, Time, Situation Transfers Therapy Code Descriptions/Definitions Functional Person Measure: 0=Not Assessed/NA 4=Minimal Assistance 1=Total Assistance 5=Supervision or Setup 2=Maximal Assistance 6=Modified Person 3=Moderate Assistance 7=Complete Person Therapy Quality Codes: 6 Independent with activity with or without an assistive device 5 Patient requires set up or clean up by helper. Patient completes activity by themselves 4 Supervision or touching assist (CGA). [place] provide cues , steadying assist 3 The helper provides less than half the effort to complete the activity 2 The helper provides more than half the effort to complete the activity 1 Dependent. The helper does all the effort to complete an activity 7 Patient refused to complete or attempt activity 9 The patient did not perform the activity before the current illness or injury 88 Not attempted due to Medical conditions or safety concerns Scootin Sit to/from Stand: 6 Sit to Stand (QC): 6 Weight Bearing Right Lower Extremity: Right Weight Bearing/Tolerated Left Lower Extremity: Left Weight Bearing/Tolerated Gait Training Does the Patient Walk?: Yes Gait (FIM): 5 Distance (FIM): 3=150 ft Distance: 225' Walk 10 feet (QC): 5 Walk 50 ft with 2 Turns(QC): 5 Walk 150 ft (QC): 5 Gait Level of Assist: 5 Gait Persons Needed: 1 Gait Assistive Device: FWW Pt walks with antalgic gait pattern, slow moira. Wheelchair Training Does the Pt Use a Wheelchair?: No Exercises Seated Therapy Exercises: Ankle pumps, Long arc quads, Hip flexion, Kicking activity, Hamstring Curls, Glut set Seated Reps: 20 Treatments Pt finishing phone call with Hard Tile Setter Apprentice for upon arrival. Pt transfers from recliner to standing. Pt ambulates in hallway. Pt completes Seated EX in chair. Pt returns to room to rest at end of tx with all needs met, call light next to pt. Assessment RESORT MANAGER adjusted pt's FWW to improve posture and decrease WB on UE. Pt demonstrates improved ambulation. PT Short Term Goals Short Term Goals Time Frame: Oct 18, 2018 Transfers (B,C,W/C) (FIM): 5 Gait (FIM): 4 Distance (FIM): 3=150 ft Gait Assistive Device: Cane Single Point PT Retail Attendant Goals Retirement Goals PT Retirement Goals Time Frame: Oct 25, 2018 Transfers (B,C,W/C) (FIM): 7 Sit to Lying (QC): 6 Lying-Sitting on Side/Bed(QC): 6 Sit to Stand (QC): 6 Rollin Roll Left to Right (QC): 6 Chair/Lpz-zc-Nowpu Xfer(QC): 6 Car Transfer (QC): 6 Does the Patient Walk: Yes Gait (FIM): 6 Gait distance (FIM): 3=150 ft Walk 10 feet (QC): 6 Walk 10ft-Uneven Surface(QC): 6 Walk 50ft with 2 Turns (QC): 6 Walk 150 ft (QC): 6 Gait Level of Assist: 6 Gait Assistive Device: Cane Single Point (or least restrictive safe device) Does the Pt use WC or Scooter?: No Stairs (FIM): 6 # of Steps: 12 1 Step (curb) (QC): 6 4 Steps (QC): 6 12 Steps (QC): 6 Picking up an Object (QC): 88 PT Plan Problem List Problem List: Activity Tolerance, Gait Treatment/Plan Treatment Plan: Continue Plan of Care Treatment Plan: Bed Mobility, Education, Functional Activity Tye, Functional Strength, Group Therapy, Gait, Safety, Therapeutic Exercise, Transfers Treatment Duration: Oct 25, 2018 Frequency: At least 5 of 7 days/Wk (IRF) Estimated Hrs Per Day: 1.5 hours per day Patient and/or Family Agrees t: Yes Safety Risks/Education Patient Education: Gait Training, Transfer Techniques, Correct Positioning, Safety Issues Teaching Recipient: Patient Teaching Methods: Discussion Response to Teaching: Verbalize Understanding Time/GCodes Time In: 1100 Time Out: 1145 Total Billed Treatment Time: 45 Total Billed Treatment 1, GT (15m), EX (15m) & FA (15m) DAVEY JENKINS RESORT MANAGER Oct 23, 2018 12:06
--- NOTE | 2018-10-23 13:38 | NUR ---
Met with patient to further discuss discharge planning. This worker stated the rehab team set a discharge date of this October 26. Patient verbalized she is not comfortable with this discharge date as she is fearful in returning home, at this time. She attributes this to being home without the assistance from therapy staff, as well as not being able to transfer from bed. [Upon chart review it is found patient is transferring (B/C/WC) with modified independence.] Patient was prompted to discuss her progression with therapies, since admission. Patient does identify she has made progress, however, her feelings of apprehensiveness remain. Patient does confirm her mother still intends to stay with her upon dismissing to her friend's home in [place], [place]. The possibility of a day pass was mentioned and patient is agreeable. The day pass will need to be scheduled during the evening or weekend, as her friend will not be available during working hours. Patient states she has upcoming appointments in [place], and that she would be most comfortable commuting via stretcher. This is due to her inability of sitting up right for an extended period of time. Further coordination in regards to day pass and upcoming appointments to be completed. 1311 - Work comp CM notified of patient's preference of transporting via stretcher vs private vehicle. CM states she will attempt to finalize transportation. CM does confirm patient's upcoming appointments are October 30 at 10:30. Her first appointment will be with the neurosurgeon, and the second with the orthopedic surgeon. The CM intends to attend these visits with her. 1412 - Work comp CM informed of patient's functional status from today's therapy sessions. Patient performed ADLs with modified independence and ambulation (225ft, FWW) with supervision. CM confirms that if patient were to dismiss from ARU prior to Monday, work comp would still arrange upcoming transportation to appointments on 10/30. Patient requested, upon returning home, to receive home health services.
--- NOTE | 2018-10-23 14:32 | Therapy Group Daily Note ---
Therapy Daily Group Note Patient Education Topic Home Safety, Fall Prevention Exercises Sit to/from Stand, Walking Session Ratio (pt:therapist): 4:1 Goal of Session: Home Safety Strategies, Memory Strategies, Safety with Transfers, Use of Adaptive Equipment To improve knowledge of home safety. To improve knowledge of adaptive equipment and strategies. To engage in social conversation relating to history. Goal Met for this Session: Yes Pt Benefit of Group: Contributions to Others, F/U Use of Strategies @Home, Increased Functional Safety, Improved Cognition, Socialization Other/Notes Pt. participated in group therapy session that focused on home safety and cognitive trivia. Pt. able to state name, where from, and a story pertaining to home safety. Then participated collectively with group for education regarding home safety strategies, adaptive equipment, and further education on discharge planning. This group also contained trivia pertaining to history, thus engaging in memory and knowledge. Pt. participated well. Start Time: 13:00 Stop Time: 14:15 Total Billed Treatment Time: 75 Total Billed Treatment 1, Group TALIB RUBIO OT Oct 23, 2018 14:32
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
[2018-10-23 17:44] VITALS: BP 110/68
[2018-10-24] MEDS: ACETAMINOPHEN 325 MG TABLET PO SCH ×6 (00:29→23:57)
[2018-10-24 05:14] VITALS: BP 109/71
--- NOTE | 2018-10-24 07:32 | Progress Note ---
[facility] 10/24/18 0732: Subjective Date Seen by a Provider: Oct 24, 2018 Time Seen by a Provider: 06:50 Subjective/Events-last exam Vitals are normal and stable. Voiding and stooling with no issues. Eating and drinking well. Trouble sleeping last night. She woke up a bit last night and stay up later. Ankle seems to be healing better. Left hip is a little painful, but maintaining to ambulate well. ROS: + : N/a -: SOB/Chest pain, Fever/Chills, N/V/D, Dizziness/[place] Objective Exam Last Set of Vital Signs Vital Signs Date Time Temp Pulse Resp B/P (MAP) Pulse Ox O2 Delivery O2 Flow Rate FiO2 10/24/18 05:14 36.5 76 18 109/71 97 Room Air Capillary Refill : Less Than 3 Seconds I&O Intake and Output 10/24/18 00:00 Intake Total 2025 ml Balance 2025 ml Intake Oral 2025 ml # Voids 7 General: Alert, Oriented X3, Cooperative, No Acute Distress Lungs: Clear to Auscultation, Normal Air Movement Abdomen: No Tenderness Assessment/Plan Assessment/Plan Assess & Plan/Chief Complaint Assessment: 1. ROM in the L LE is increasing with a decrease in pain upon motion 2. Bowel movement have become more regular with frequency and consistently. 3. Reduced pain overall. 4. Affect and determination remain high. Plan: 1. Continue to participate in PT/OT 2. Use laxatives as needed with BM 3. Continue to treat pain with Acetaminophen and Oxycodone as needed. Clinical Quality Measures DVT/VTE Risk/Contraindication: Risk Factor Score Per Nursin RFS Level Per Nursing on Admit: 4+=Very High JU DOBBINS DO 10/24/18 1530: Supervisory-Addendum Brief Verification & Attestation Participated in pt care: history, MDM, physical Personally performed: exam, history, MDM, supervision of care Care discussed with: Medical Student Procedures: n/a Results interpretation: Verified all documentation Verification and Attestation of Medical Student E/M Service A medical student performed and documented this service in my presence. I reviewed and verified all information documented by the medical student and made modifications to such information, when appropriate. I personally performed the physical exam and medical decision making. Ju Dobbins, Oct 24, 2018,15:30 [facility] Oct 24, 2018 07:32 JU DOBBINS DO Oct 24, 2018 15:30
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
[2018-10-24] MEDS: DOCUSATE SODIUM 100 MG (COLACE) CAP PO SCH ×2 (10:10→20:16)
[2018-10-24] MEDS: SENNOSIDES 8.6 MG (SENOKOT) TAB PO SCH ×2 (10:10→20:17)
[2018-10-24] MEDS: APIXABAN 2.5 MG (ELIQUIS) TABLET PO SCH ×2 (10:10→20:16)
[2018-10-24] MEDS: BISACODYL 5 MG (DULCOLAX) TABLET PO SCH (10:10)
[2018-10-24] MEDS: POLYETHYLENE GLYCOL 17 GM (MIRALAX) PACK PO SCH ×2 (10:11→20:17)
--- NOTE | 2018-10-24 10:45 | NUR ---
Pastoral care visit.
--- NOTE | 2018-10-24 11:27 | Occupational Ther Daily Note ---
OT Current Status-Daily Note Subjective Pt seen in room, supine in bed. Pt stated slept okay, 7/10 pain in back on this date. Pt agreeable to OT tx session. Mental Status/Objective Patient Orientation: Normal For Age Therapy Code Descriptions/Definitions Functional [place] Measure: 0=Not Assessed/NA 4=Minimal Assistance 1=Total Assistance 5=Supervision or Setup 2=Maximal Assistance 6=Modified [place] 3=Moderate Assistance 7=Complete [place] ADL-Treatment Therapy Code Descriptions/Definitions Functional [place] Measure: 0=Not Assessed/NA 4=Minimal Assistance 1=Total Assistance 5=Supervision or Setup 2=Maximal Assistance 6=Modified [place] 3=Moderate Assistance 7=Complete [place] Therapy Quality Codes: 6 Independent with activity with or without an assistive device 5 Patient requires set up or clean up by helper. Patient completes activity by themselves 4 Supervision or touching assist (CGA). [place] provide cues , steadying assist 3 The helper provides less than half the effort to complete the activity 2 The helper provides more than half the effort to complete the activity 1 Dependent. The helper does all the effort to complete an activity 7 Patient refused to complete or attempt activity 9 The patient did not perform the activity before the current illness or injury 88 Not attempted due to Medical conditions or safety concerns Grooming (FIM): 6 (increased time and use of FWW in front of mirror for safety while combing hair.) Oral Hygiene (QC): 6 (FWW used for safety at sink) Upper Body (FIM): 6 (Use of chair during UE dressing) Upper Body Dressing (QC): 6 Lower Body Dressing (FIM): 4 (Min A for use of sock aide due to hang-up on corners. Pt utilized travel trailer components assembler for under garments and sock sukhdev for tight pants-- completed underwear and pants with SUP. ) Lower Body Dressing (QC): 4 (SUP during standing) On/Off Footwear (QC): 3 (Min A for use of sock sukhdev.) Toileting (FIM): 6 (use of FWW, no use of grab bars.) Toileting Hygiene (QC): 6 Transfers (B, C, W/C) (FIM): 4 (Assist with L LE during bed mobility. ) Toilet/Commode Transfer (FIM): 6 Toilet Transfer (QC): 6 Tub Transfer(FIM): 4 (CGA for 1 shower transfer, practicing without use of grab bars due to pt's planned d/c location. Pt backs to edge of tub with BLE toward tub, stabilizes self with FWW and completes shower transfers and sits on shower bench with CGA. Pt completes with min cues for back precautions. Pt completes shower transfer an additional 2x with SBA.) Other Treatment Pt completes ADL tasks with good endurance and minimal c/o pain. Pt able to dres s LE dressing with increased independence with L ankle wound covered. Pt sits in recliner chair end of session, call light in reach and all needs met. Education OT Patient Education: Correct positioning, Energy conservation, Modified ADL techniques, Progress toward Goal/Update tx plan, Purpose of tx/functional activities, Reviewed precautions, Rehab process, Safety issues, Transfer techniques, Use of adapted equipment Teaching Recipient: Patient Teaching Methods: Demonstration, Discussion Response to Teaching: Verbalize Understanding, Return Demonstration OT Short Term Goals Short Term Goals Eating(FIM): 7 (met) Grooming(FIM): 6 (met) Bathing(FIM): 4 (met) Upper Body Dressing(FIM): 3 (met) Lower Body Dressing(FIM): 3 (met) Toileting(FIM): 4 (met) Transfers (B,C,W/C) (FIM): 5 Toilet/Commode Transfer(FIM): 6 (met) Tub Transfer(FIM): 5 Shower Transfer(FIM): 5 Additional Short Term Goals: 1-Demonstrate ADL Tasks, 2-Verbalize Understanding, 3-ImproveStrength/Tye 1=Demonstrate adherence to instructed precautions during ADL tasks. 2=Patient will verbalize/demonstrate understanding of assistive devices/modifications for ADL. 3=Patient will improve strength/tolerance for activity to enable patient to perform ADL's. OT Fpc Goals Utility Person Goals Time Frame: Oct 31, 2018 Eating (FIM): 7 Eating (QC): 6 Groomin Oral Hygiene (QC): 6 Bathing(FIM): 7 Shower/Bathe Self (QC): 6 Upper Body Dressing(FIM): 7 Upper Body Dressing (QC): 6 Lower Body Dressing(FIM): 7 Lower Body Dressing (QC): 6 On/Off Footwear (QC): 6 Toileting(FIM): 7 Toileting Hygiene (QC): 6 Transfers (B,C,W/C) (FIM): 6 Toilet/Commode Transfer(FIM): 6 Toilet/Commode Transfer (QC): 6 Tub Transfer(FIM): 6 Shower Transfer(FIM): 6 Comprehension(FIM): 6 Expression (FIM): 6 Social Interaction(FIM): 6 Problem Solving(FIM): 6 Memory(FIM): 6 Additional Goals: 1-Demonstrate ADL Tasks, 2-Verbalize Understanding, 3- ImproveStrength/Tye 1=Demonstrate adherence to instructed precautions during ADL tasks. 2=Patient will verbalize/demonstrate understanding of assistive devices/modifications for ADL. 3=Patient will improve strength/tolerance for activity to enable patient to perform ADL's. OT Education/Plan Problem List/Assessment Assessment: Dependent Transfers, Impaired Bed Mobility, Impaired I ADL's, Impaired Self-Care Skills Pt presents will functional limitations affecting areas of ADLs and functional mobility with the above mentioned deficits. Pt will benefit from skilled OT services to increase independence with daily activities and safe transition to home. Discharge Recommendations Plan/Recommendations: Continue POC Therapy Discharge Recommendati: Other, See Comments Equpiment Recommendations-D/C: Bath Chair, Resin Filterer, Sock Aide, Dressing Stick Comment Pt plans to d/c to friends home which they rent in [place], [place]. Treatment Plan/Plan of Care Treatment,Training & Education: Yes Patient would benefit from OT for education, treatment and training to promote independence in ADL's, mobility, safety and/or upper extremity function for ADL's. Plan of Care: ADL Retraining, Caregiver Training, Functional Mobility, Group Exercise/Act as Ind, UE Funct Exercise/Act Treatment Duration: Oct 31, 2018 Frequency: At least 5 of 7 days/Wk (IRF) Estimated Hrs Per Day: 1 hour per day (60-90 minutes) Agreement: Yes Rehab Potential: Good Time/GCodes Start Time: 08:45 Stop Time: 09:30 Total Time Billed (hr/min): 45 Billed Treatment Time 1 ADL 2 (30) FA (15) SHIRLEY ARIAS OTR Oct 24, 2018 11:27
--- NOTE | 2018-10-24 12:20 | Physical Therapy Daily Note ---
PT Daily Note-Current Subjective Pt sitting in recliner upon arrival. Pt is awaiting the rest of her breakfast. Pt also appears very sad today. Nurse and RECONDITIONING ASSOCIATE visit with pt is regards to sadness & anxiety at this time. Pt reports feeling nervous about D/C from ARU, not sleeping well. After visit, pt agrees to PT. Pain Numeric Pain Scale: 6 Location: Left Location Body Site: Hip Pain Description: Ache, Tightness Comment: Pt reports pain in Hip w/ambulation as well as Upper trap & lower Thor. Mental Status Patient Orientation: Person, Place, Time, Situation Transfers Therapy Code Descriptions/Definitions Functional [place] Measure: 0=Not Assessed/NA 4=Minimal Assistance 1=Total Assistance 5=Supervision or Setup 2=Maximal Assistance 6=Modified [place] 3=Moderate Assistance 7=Complete [place] Therapy Quality Codes: 6 Independent with activity with or without an assistive device 5 Patient requires set up or clean up by helper. Patient completes activity by themselves 4 Supervision or touching assist (CGA). [place] provide cues , steadying assist 3 The helper provides less than half the effort to complete the activity 2 The helper provides more than half the effort to complete the activity 1 Dependent. The helper does all the effort to complete an activity 7 Patient refused to complete or attempt activity 9 The patient did not perform the activity before the current illness or in jury 88 Not attempted due to Medical conditions or safety concerns Scootin Sit to/from Stand: 6 Sit to Stand (QC): 6 Weight Bearing Right Lower Extremity: Right Weight Bearing/Tolerated Left Lower Extremity: Left Weight Bearing/Tolerated Gait Training Does the Patient Walk?: Yes Gait (FIM): 6 Distance (FIM): 3=150 ft Distance: 200' x2 Walk 10 feet (QC): 6 Walk 50 ft with 2 Turns(QC): 6 Walk 150 ft (QC): 6 Gait Level of Assist: 6 Gait Persons Needed: 1 Gait Assistive Device: FWW Pt's pain is only ambulation limitation at this time. Wheelchair Training Does the Pt Use a Wheelchair?: No Exercises Seated Therapy Exercises: Ankle pumps, Long arc quads, Hip flexion, Kicking activity, Hamstring Curls Seated Reps: 20 Treatments Pt completes Seated EX while awaiting breakfast. Pt takes meds from Nurse then begins to discuss her anxiety and feelings for D/C soon. Pt is near tearful at this time. Nurse & RECONDITIONING ASSOCIATE console pt and answer any questions pt has to ease pt's mind. Pt transfers to standing then ambulates in hallway. Pt takes RB due to pain. Pt again gets teary about D/C and all she has gone through as well as her progress. RECONDITIONING ASSOCIATE again consoles then pt ambulates in hallway before returning to room to rest. Pt uses restroom before resting in recliner. Pt has all needs met, call light in hand. Assessment Current Status: Fair Progress Pt is anxious and teary at this time. will visit with pt later this morning. PT Short Term Goals Short Term Goals Time Frame: Oct 18, 2018 Transfers (B,C,W/C) (FIM): 5 Gait (FIM): 4 Distance (FIM): 3=150 ft Gait Assistive Device: Cane Single Point PT Decorator Consultant Goals Usp Goals PT Decorator Consultant Goals Time Frame: Oct 25, 2018 Transfers (B,C,W/C) (FIM): 7 Sit to Lying (QC): 6 Lying-Sitting on Side/Bed(QC): 6 Sit to Stand (QC): 6 Rollin Roll Left to Right (QC): 6 Chair/Uou-mk-Hoeoc Xfer(QC): 6 Car Transfer (QC): 6 Does the Patient Walk: Yes Gait (FIM): 6 Gait distance (FIM): 3=150 ft Walk 10 feet (QC): 6 Walk 10ft-Uneven Surface(QC): 6 Walk 50ft with 2 Turns (QC): 6 Walk 150 ft (QC): 6 Gait Level of Assist: 6 Gait Assistive Device: Cane Single Point (or least restrictive safe device) Does the Pt use WC or Scooter?: No Stairs (FIM): 6 # of Steps: 12 1 Step (curb) (QC): 6 4 Steps (QC): 6 12 Steps (QC): 6 Picking up an Object (QC): 88 PT Plan Problem List Problem List: Activity Tolerance, Functional Strength Treatment/Plan Treatment Plan: Continue Plan of Care Treatment Plan: Bed Mobility, Education, Functional Activity Tye, Functional Strength, Group Therapy, Gait, Safety, Therapeutic Exercise, Transfers Treatment Duration: Oct 25, 2018 Frequency: At least 5 of 7 days/Wk (IRF) Estimated Hrs Per Day: 1.5 hours per day Patient and/or Family Agrees t: Yes Safety Risks/Education Patient Education: Gait Training, Transfer Techniques, Correct Positioning, Safety Issues Teaching Recipient: Patient Teaching Methods: Discussion Response to Teaching: Verbalize Understanding Time/GCodes Time In: 1000 Time Out: 1100 Total Billed Treatment Time: 60 Total Billed Treatment 1, FA (20m), GT x2 (25m) & EX (15m) DAVEY JENKINS RECONDITIONING ASSOCIATE Oct 24, 2018 12:19
--- NOTE | 2018-10-24 14:25 | Occupational Ther Daily Note ---
OT Current Status-Daily Note Subjective Pt seen in room in recliner chair post-PT session. Pt's parents present during OT session, agreeable to OT tx session. Mental Status/Objective Patient Orientation: Normal For Age Therapy Code Descriptions/Definitions Functional [place] Measure: 0=Not Assessed/NA 4=Minimal Assistance 1=Total Assistance 5=Supervision or Setup 2=Maximal Assistance 6=Modified [place] 3=Moderate Assistance 7=Complete [place] ADL-Treatment Therapy Code Descriptions/Definitions Functional [place] Measure: 0=Not Assessed/NA 4=Minimal Assistance 1=Total Assistance 5=Supervision or Setup 2=Maximal Assistance 6=Modified [place] 3=Moderate Assistance 7=Complete [place] Therapy Quality Codes: 6 Independent with activity with or without an assistive device 5 Patient requires set up or clean up by helper. Patient completes activity by themselves 4 Supervision or touching assist (CGA). [place] provide cues , steadying assist 3 The helper provides less than half the effort to complete the activity 2 The helper provides more than half the effort to complete the activity 1 Dependent. The helper does all the effort to complete an activity 7 Patient refused to complete or attempt activity 9 The patient did not perform the activity before the current illness or injury 88 Not attempted due to Medical conditions or safety concerns Transfers (B, C, W/C) (FIM): 4 (Pt requires min A for LLE in/ out of bed. Pt's mother present and educated of patient assist in/ out of bed and proper body mechanics. Pt return demonstrated with good awareness x2. ) Toilet/Commode Transfer (FIM): 6 Toilet Transfer (QC): 6 Tub Transfer(FIM): 4 (Pt practiced shower chair transfer with parents present. Pt requires CGA during transfer for safety. Pt's mother return demonstrated safe transfer techniques 2x.) Other Treatment Caregiver training completed on this date. Parents expressed concerns of functional mobility including shower transfers and bed mobility. Pt's parents educated on safety and skilled transfer techniques while maintaining spinal alignment with good retention and return demonstration. Pt's parents did not have questions, but plan to see how pt's "day pass" is on Monday and plan to return with functional questions. Pt's parents educated of rehab and OT process. Pt completed laundry routine with SBA. Pt returned to room with SUP and FWW, r eturned to low back chair with hot pack applied due to muscle tension knot in R rhomboid. Pt completed UE exercises (10 reps each) focusing on strength and endurance and education of muscle relaxation techniques. pt left in room with parents present, call light in reach all needs met. Education OT Patient Education: Correct positioning, Energy conservation, Exercise program, Instructions to caregiver, Modified ADL techniques, Purpose of tx/functional activities, Reviewed precautions, Rehab process, Safety issues, Transfer techniques Teaching Recipient: Patient, Family Teaching Methods: Demonstration, Discussion Response to Teaching: Verbalize Understanding, Return Demonstration OT Short Term Goals Short Term Goals Eating(FIM): 7 (met) Grooming(FIM): 6 (met) Bathing(FIM): 4 (met) Upper Body Dressing(FIM): 3 (met) Lower Body Dressing(FIM): 3 (met) Toileting(FIM): 4 (met) Transfers (B,C,W/C) (FIM): 5 Toilet/Commode Transfer(FIM): 6 (met) Tub Transfer(FIM): 5 Shower Transfer(FIM): 5 Additional Short Term Goals: 1-Demonstrate ADL Tasks, 2-Verbalize Understanding, 3-ImproveStrength/Tye 1=Demonstrate adherence to instructed precautions during ADL tasks. 2=Patient will verbalize/demonstrate understanding of assistive devices/modifications for ADL. 3=Patient will improve strength/tolerance for activity to enable patient to perform ADL's. OT Content Architect Goals Content Architect Goals Time Frame: Oct 31, 2018 Eating (FIM): 7 Eating (QC): 6 Groomin Oral Hygiene (QC): 6 Bathing(FIM): 7 Shower/Bathe Self (QC): 6 Upper Body Dressing(FIM): 7 Upper Body Dressing (QC): 6 Lower Body Dressing(FIM): 7 Lower Body Dressing (QC): 6 On/Off Footwear (QC): 6 Toileting(FIM): 7 Toileting Hygiene (QC): 6 Transfers (B,C,W/C) (FIM): 6 Toilet/Commode Transfer(FIM): 6 Toilet/Commode Transfer (QC): 6 Tub Transfer(FIM): 6 Shower Transfer(FIM): 6 Comprehension(FIM): 6 Expression (FIM): 6 Social Interaction(FIM): 6 Problem Solving(FIM): 6 Memory(FIM): 6 Additional Goals: 1-Demonstrate ADL Tasks, 2-Verbalize Understanding, 3- ImproveStrength/Tye 1=Demonstrate adherence to instructed precautions during ADL tasks. 2=Patient will verbalize/demonstrate understanding of assistive devices/modifications for ADL. 3=Patient will improve strength/tolerance for activity to enable patient to perform ADL's. OT Education/Plan Problem List/Assessment Assessment: Decreased Activ Tolerance, Impaired Bed Mobility, Impaired I ADL's, Impaired Self-Care Skills Pt presents will functional limitations affecting areas of ADLs and functional mobility with the above mentioned deficits. Pt will benefit from skilled OT se rvices to increase independence with daily activities and safe transition to home. Discharge Recommendations Plan/Recommendations: Continue POC Therapy Discharge Recommendati: Other, See Comments Equpiment Recommendations-D/C: Bath Chair, Water Manager, Sock Aide, Dressing Stick Treatment Plan/Plan of Care Treatment,Training & Education: Yes Patient would benefit from OT for education, treatment and training to promote independence in ADL's, mobility, safety and/or upper extremity function for ADL's. Plan of Care: ADL Retraining, Caregiver Training, Functional Mobility, Group Exercise/Act as Ind, UE Funct Exercise/Act Treatment Duration: Oct 31, 2018 Frequency: At least 5 of 7 days/Wk (IRF) Estimated Hrs Per Day: 1 hour per day (60-90 minutes) Agreement: Yes Rehab Potential: Good Time/GCodes Start Time: 14:33 Stop Time: 15:18 Total Time Billed (hr/min): 45 Billed Treatment Time 1 ADL (15) FA (30) SHIRLEY ARIAS OTR Oct 24, 2018 14:25
[2018-10-24] MEDS ORDERED: VENlafaxine 37.5 MG (EFFEXOR) TAB PO NR (14:30)
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
--- NOTE | 2018-10-24 15:28 | Physical Therapy Daily Note ---
PT Daily Note-Current Subjective Pt sitting in recliner with parents present just after finishing BH. Pain Numeric Pain Scale: 5-Moderate Pain Location: Upper Location Body Site: Back Pain Description: Ache, Tightness Comment: Pt reports Upper Trap. & Lower Thor. pain Mental Status Patient Orientation: Person, Place, Time, Situation Transfers Therapy Code Descriptions/Definitions Functional [place] Measure: 0=Not Assessed/NA 4=Minimal Assistance 1=Total Assistance 5=Supervision or Setup 2=Maximal Assistance 6=Modified [place] 3=Moderate Assistance 7=Complete [place] Therapy Quality Codes: 6 Independent with activity with or without an assistive device 5 Patient requires set up or clean up by helper. Patient completes activity by themselves 4 Supervision or touching assist (CGA). [place] provide cues , steadying assist 3 The helper provides less than half the effort to complete the activity 2 The helper provides more than half the effort to complete the activity 1 Dependent. The helper does all the effort to complete an activity 7 Patient refused to complete or attempt activity 9 The patient did not perform the activity before the current illness or injury 88 Not attempted due to Medical conditions or safety concerns Scootin Sit to/from Stand: 5 Sit to Stand (QC): 5 Weight Bearing Right Lower Extremity: Right Weight Bearing/Tolerated Left Lower Extremity: Left Weight Bearing/Tolerated Gait Training Does the Patient Walk?: Yes Gait (FIM): 5 Distance (FIM): 3=150 ft Distance: 175' Walk 10 feet (QC): 5 Walk 50 ft with 2 Turns(QC): 5 Walk 150 ft (QC): 5 Gait Level of Assist: 5 Gait Persons Needed: 1 Gait Assistive Device: FWW Wheelchair Training Does the Pt Use a Wheelchair?: No Stair Training Stair Training: Handrails/: 1 handrail #of Steps: 4 1 Step (curb) (QC): 4 4 Steps (QC): 4 Stairs: Pattern: Step to Level of Assist: 4 Pt completes 1 set of 4 steps with handrail & COTTON PRESSER from father, EMERGENCY PLANNER supervising. Treatments Pt transfers from recliner to standing. Pt uses restroom before ambulating in hallway and to Therapy Gym. Pt completes 1 set of stairs (see above) then returns to room to rest in recliner at end of tx. Lumbar MHP is applied to pt at end of tx. OT present and call light next to pt. Assessment Current Status: Good Progress Pt continues to get stronger and more independent with tasks given but is very anxious about D/C. PT Short Term Goals Short Term Goals Time Frame: Oct 18, 2018 Transfers (B,C,W/C) (FIM): 5 Gait (FIM): 4 Distance (FIM): 3=150 ft Gait Assistive Device: Cane Single Point PT Supervisor Pipeline Goals Supervisor Pipeline Goals PT Group Home Goals Time Frame: Oct 25, 2018 Transfers (B,C,W/C) (FIM): 7 Sit to Lying (QC): 6 Lying-Sitting on Side/Bed(QC): 6 Sit to Stand (QC): 6 Rollin Roll Left to Right (QC): 6 Chair/Kgc-qe-Buhds Xfer(QC): 6 Car Transfer (QC): 6 Does the Patient Walk: Yes Gait (FIM): 6 Gait distance (FIM): 3=150 ft Walk 10 feet (QC): 6 Walk 10ft-Uneven Surface(QC): 6 Walk 50ft with 2 Turns (QC): 6 Walk 150 ft (QC): 6 Gait Level of Assist: 6 Gait Assistive Device: Cane Single Point (or least restrictive safe device) Does the Pt use WC or Scooter?: No Stairs (FIM): 6 # of Steps: 12 1 Step (curb) (QC): 6 4 Steps (QC): 6 12 Steps (QC): 6 Picking up an Object (QC): 88 PT Plan Problem List Problem List: Activity Tolerance, Functional Strength, Gait Treatment/Plan Treatment Plan: Continue Plan of Care Treatment Plan: Bed Mobility, Education, Functional Activity Tye, Functional Strength, Group Therapy, Gait, Safety, Therapeutic Exercise, Transfers Treatment Duration: Oct 25, 2018 Frequency: At least 5 of 7 days/Wk (IRF) Estimated Hrs Per Day: 1.5 hours per day Patient and/or Family Agrees t: Yes Safety Risks/Education Patient Education: Gait Training, Transfer Techniques, Steps, Correct Positioning, Safety Issues Teaching Recipient: Patient, Family Teaching Methods: Discussion Response to Teaching: Verbalize Understanding Time/GCodes Time In: 1400 Time Out: 1430 Total Billed Treatment Time: 30 Total Billed Treatment 1, GT (15m) & FA (15m) DAVEY JENKINS EMERGENCY PLANNER Oct 24, 2018 15:28
[2018-10-24 17:25] VITALS: BP 111/70
[2018-10-25 03:35] VITALS: BP 154/81
--- NOTE | 2018-10-25 03:35 | NUR ---
INFORMED DR. DOBBINS THAT PATIENT WOKE UP TO GO TO THE BATHROOM AND BEGAN TO C/O PALPITATIONS, SOA, AND FEELING HOT AND STATED THAT SHE HAS NOT "FELT RIGHT" SINCE SHE TOOK THE EFFEXOR. VITAL SIGNS-154/81, 120'S, 99%RA. RECEIVED ORDER FOR XANAX 0.25 Q3 PRN. PATIENT GIVEN CRACKERS, PEANUT BUTTER AND SPRITE WITH ADMINISTRATION OF XANAX. WILL CONTINUE MONITOR.
[2018-10-25] MEDS ORDERED: ALPRAZolam 0.25 MG (XANAX) TAB PO PRN (03:45)
[2018-10-25] MEDS: ACETAMINOPHEN 325 MG TABLET PO SCH ×3 (06:08→20:30)
[2018-10-25] MEDS: VENlafaxine 37.5 MG (EFFEXOR) TAB PO SCH (06:08)
[2018-10-25 06:30] VITALS: BP 121/78
[2018-10-25 07:13] VITALS: BP 123/75
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
[2018-10-25] MEDS: SENNOSIDES 8.6 MG (SENOKOT) TAB PO SCH ×3 (09:00→22:23)
[2018-10-25] MEDS: POLYETHYLENE GLYCOL 17 GM (MIRALAX) PACK PO SCH ×2 (09:00→20:32)
[2018-10-25] MEDS: BISACODYL 5 MG (DULCOLAX) TABLET PO SCH (09:00)
[2018-10-25] MEDS: DOCUSATE SODIUM 100 MG (COLACE) CAP PO SCH ×2 (09:00→20:32)
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
[2018-10-25] MEDS: APIXABAN 2.5 MG (ELIQUIS) TABLET PO SCH ×2 (10:12→20:30)
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
--- NOTE | 2018-10-25 15:02 | Behavioral Health Consult ---
Consult- Consult Date Seen by Provider: Oct 25, 2018 Time Seen by Provider: 13:00 MR#: [id number] : 94 CPT Code: 47422 Psychotherapy (Session length 45 min.) and 58258 Interactive Complexity Date: 10-25-18 Start Time: 1:00 pm End Time: 2:00 pm Duration: 60 minutes Subjective: Kady, a 23-year-old female, is seen today for individual psychotherapy to address concerns and symptoms associated with F43.0 Acute Stress Disorder. Kelli, the hospital social work faculty member, contacted therapist to inquire about updates on the patient. Kelli reported Effexor was started yesterday after patient met with therapist, she had a panic attack sometime during the night, and they were questioning if inpatient psychiatric treatment would be the best approach. Therapist stated Martín had denied symptoms of a panic attack yesterday and denied any past or present suicidal or homicidal ideation. Therapist stated she felt that an anxiolytic, remaining on the rehab unit until she is able to be discharged, and then outpatient psychotherapy would be the best approach. Therapist met with Ro Pineda nurse, who reported after taking the Effexor that made her nauseous she did not want to take any new medication. Miriam also stated it appeared she had a panic attack last night but has been doing better today but stated she thought something for anxiety may be beneficial after therapist inquired about it. Therapist met with Martín alone and she reported she vomited within 15-20 minutes of taking the Effexor. She also reported in the night she woke up, felt like she may have to use the bathroom, then suddenly felt shortness of breath, palpitations, shaking, numbness in her fingers, and cold flushes. She was told it appeared she was having a panic attack. Martín denied any flashbacks or nightmares since meeting with therapist yesterday. Martín reported concern about taking any other medication due to how she felt yesterday, and therapist stated she was concerned as she had not had a panic attack before and had one yesterday. Therapist encouraged her to talk with her nurse and doctor about her concerns, benefits, and side effects of a PRN medication for anxiety. She agreed to do so after asking if she could also talk with her father about it, and therapist encouraged her to do so. Martín was very hesitant about having any me dication be added to have to take daily or terminal carman, and therapist explained how a PRN med would be different. Martín reported she went outside twice yesterday and was able to manage it very well. She reported she also talked with her father and friend about how she was feeling and how she has been struggling and she feels that helped a bit. She reported her father told her he talked with her mother about how she is actually doing and she felt alright with that. Therapist told her how impressed she was with the positive changes she made just in the past day and Martín reported she was feeling more confident and felt good about where she is now. Martín continued to deny any problems with feeling depressed, feelings of worthlessness, or guilt. She reported she is just scared about going home alone and wondering if she will be alright. She reported she did talk with her father about that and he told her that he would stay with her if she needed him to and that she did not have to go back to [facility], which relieved her. She was encouraged to continue to talk with her friends and family about how she is feeling and doing. She was also encouraged to talk with her father, nurse, and doctor about medication options. Therapist talked with her about going outside one or two more times before leaving on her day pass on Monday and we discussed self-affirming positive statements to help decrease her anxiety and doing deep breathing before leaving. She was also encouraged to acknowledge the progress she has been making and when she is able to handle difficult situations to continue to decrease her anxiety. Therapist reminded Martín outpatient psychot herapy was recommended as well. Therapist spoke with Miriam after meeting with Martín and discussed what was said. Therapist stated she did not feel that inpatient psychiatric hospitalization was necessary, as patient has not expressed any danger to herse lf or others. It was requested Martín be assisted in scheduling outpatient psychotherapy with therapist once her discharge date is determined. Overall symptoms observed or reported requiring current level of care included . Relevant changes in medical status: none reported, observed, or indicated. Current report of any problems with pain: none reported, observed, or indicated. Pain rating: n/a. Any changes or additions to medications: none reported. Current self-destructive behavior patterns/risk factors reported or indicated during session: none indicated. Level of functioning was average. Objective: Sreehitha was seen on rehab floor. Kady came to the appointment alone. Kady was oriented to person, place, time, and situation. Overall appearance was appropriately dressed and groomed. [facility] approach to the session was cooperative. Mood was calm with affect appropriate to expressed concerns and presenting problem. Eye contact was fair. Tone of voice was normal and controlled. Speech was of normal rate and flow. Thought processes were appropriate and focused during the appointment. Thought content was marked by no abnormal findings. Psychomotor functioning was within normal limits. Insight was fair. Concentration was good. [facility] style of interacting during the appointment was appropriate and motivated. Diagnostic Impressions: F43.0 Acute Stress Disorder TOSHIA LIEBERMAN [facility] Oct 25, 2018 15:02
--- NOTE | 2018-10-25 15:21 | Physical Therapy Daily Note ---
PT Daily Note-Current Subjective Pt returns to room after Group Therapy. Pt & family have a few questions for OFFICER LIEUTENANT about Day Pass, AD & what will rest of time on ARU look like between now and D/C. Pain Numeric Pain Scale: 5-Moderate Pain Location Body Site: Back Pain Description: Ache, Tightness Mental Status Patient Orientation: Person, Place, Situation Transfers Therapy Code Descriptions/Definitions Functional [place] Measure: 0=Not Assessed/NA 4=Minimal Assistance 1=Total Assistance 5=Supervision or Setup 2=Maximal Assistance 6=Modified [place] 3=Moderate Assistance 7=Complete [place] Therapy Quality Codes: 6 Independent with activity with or without an assistive device 5 Patient requires set up or clean up by helper. Patient completes activity by themselves 4 Supervision or touching assist (CGA). [place] provide cues , steadying assist 3 The helper provides less than half the effort to complete the activity 2 The helper provides more than half the effort to complete the activity 1 Dependent. The helper does all the effort to complete an activity 7 Patient refused to complete or attempt activity 9 The patient did not perform the activity before the current illness or injury 88 Not attempted due to Medical conditions or safety concerns Scootin Sit to/from Stand: 5 Sit to Stand (QC): 5 Weight Bearing Right Lower Extremity: Right Weight Bearing/Tolerated Left Lower Extremity: Left Weight Bearing/Tolerated Treatments Pt returns to room from Group Therapy and uses restroom before returning to recliner. Pt and family have questions (see above). Pt resting at end of tx with all needs met, call light next to pt. Nurse will visit with pt regarding medication questions and Japanese Tutor was informed of AD request and OP PT vs PT. Assessment Current Status: Good Progress Pt tolerated tx well. PT Short Term Goals Short Term Goals Time Frame: Oct 18, 2018 Transfers (B,C,W/C) (FIM): 5 Gait (FIM): 4 Distance (FIM): 3=150 ft Gait Assistive Device: Cane Single Point PT Mcfp Goals Side Hemmer Goals PT Side Hemmer Goals Time Frame: Oct 25, 2018 Transfers (B,C,W/C) (FIM): 7 Sit to Lying (QC): 6 Lying-Sitting on Side/Bed(QC): 6 Sit to Stand (QC): 6 Rollin Roll Left to Right (QC): 6 Chair/Gcr-tv-Rlabn Xfer(QC): 6 Car Transfer (QC): 6 Does the Patient Walk: Yes Gait (FIM): 6 Gait distance (FIM): 3=150 ft Walk 10 feet (QC): 6 Walk 10ft-Uneven Surface(QC): 6 Walk 50ft with 2 Turns (QC): 6 Walk 150 ft (QC): 6 Gait Level of Assist: 6 Gait Assistive Device: Cane Single Point (or least restrictive safe device) Does the Pt use WC or Scooter?: No Stairs (FIM): 6 # of Steps: 12 1 Step (curb) (QC): 6 4 Steps (QC): 6 12 Steps (QC): 6 Picking up an Object (QC): 88 PT Plan Problem List Problem List: Activity Tolerance Treatment/Plan Treatment Plan: Continue Plan of Care Treatment Plan: Bed Mobility, Education, Functional Activity Tye, Functional Strength, Group Therapy, Gait, Safety, Therapeutic Exercise, Transfers Treatment Duration: Oct 25, 2018 Frequency: At least 5 of 7 days/Wk (IRF) Estimated Hrs Per Day: 1.5 hours per day Patient and/or Family Agrees t: Yes Safety Risks/Education Patient Education: Gait Training, Transfer Techniques, Correct Positioning, Instructions to Caregiver, Safety Issues Teaching Recipient: Patient, Family Teaching Methods: Discussion Response to Teaching: Verbalize Understanding Time/GCodes Time In: 1410 Time Out: 1440 Total Billed Treatment Time: 30 Total Billed Treatment 1, FA x2 (30m) DAVEY JENKINS PTA Oct 25, 2018 15:21
--- NOTE | 2018-10-25 15:41 | Therapy Group Daily Note ---
Therapy Daily Group Note Patient Education Topic Exercises Exercises LE Seated Exercise, UE Exercise Session Ratio (pt:therapist): 4:1 Goal of Session: UE/LE Strengthing Goal Met for this Session: Yes Pt Benefit of Group: F/U Use of Strategies @Home, Increased Functional Safety, Increased Functional Strength, Socialization Other/Notes Pt ambulates using FWW to OT/PT group. Pt arrives late to Group due to appt. Group consisted of introduction (name, place living, memory of 10/24), socialization, pt led UE/LE seated exercises and education on the benefits of exercise. Pt introduced self then actively listened to peers. Pt participated in conversations and contributed to educational topics. Pt effectively led exercises and completed each exercise to the best of pt's ability. After therapy, pt lying in bed with call light/phone in reach. All needs met in room. Start Time: 13:40 Stop Time: 14:10 Total Billed Treatment Time: 30 Total Billed Treatment 1, GRP DAVEY JENKINS KICKING MACHINE OPERATOR Oct 25, 2018 15:41
[2018-10-25 16:15] VITALS: BP 120/85
[2018-10-26] MEDS: ACETAMINOPHEN 325 MG TABLET PO SCH ×4 (00:41→17:45)
[2018-10-26 06:02] VITALS: BP 104/68
[2018-10-26] MEDS: VENlafaxine 37.5 MG (EFFEXOR) TAB PO SCH (06:30)
[2018-10-26] MEDS: POLYETHYLENE GLYCOL 17 GM (MIRALAX) PACK PO SCH ×2 (09:00→20:48)
[2018-10-26] MEDS: SENNOSIDES 8.6 MG (SENOKOT) TAB PO SCH ×2 (09:00→20:47)
[2018-10-26] MEDS: BISACODYL 5 MG (DULCOLAX) TABLET PO SCH (09:00)
[2018-10-26] MEDS: DOCUSATE SODIUM 100 MG (COLACE) CAP PO SCH ×2 (10:28→20:47)
[2018-10-26] MEDS: APIXABAN 2.5 MG (ELIQUIS) TABLET PO SCH ×2 (10:28→20:47)
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
--- NOTE | 2018-10-26 11:37 | Occupational Ther Daily Note ---
OT Current Status-Daily Note Subjective Pt seen in bed, awake. Pt's father present. Pt stated rough night, but minimal pain in back and L hip. Pt states agreeable to OT tx session Mental Status/Objective Patient Orientation: Normal For Age Therapy Code Descriptions/Definitions Functional [place] Measure: 0=Not Assessed/NA 4=Minimal Assistance 1=Total Assistance 5=Supervision or Setup 2=Maximal Assistance 6=Modified [place] 3=Moderate Assistance 7=Complete [place] ADL-Treatment Therapy Code Descriptions/Definitions Functional [place] Measure: 0=Not Assessed/NA 4=Minimal Assistance 1=Total Assistance 5=Supervision or Setup 2=Maximal Assistance 6=Modified [place] 3=Moderate Assistance 7=Complete [place] Therapy Quality Codes: 6 Independent with activity with or without an assistive device 5 Patient requires set up or clean up by helper. Patient completes activity by themselves 4 Supervision or touching assist (CGA). [place] provide cues , steadying assist 3 The helper provides less than half the effort to complete the activity 2 The helper provides more than half the effort to complete the activity 1 Dependent. The helper does all the effort to complete an activity 7 Patient refused to complete or attempt activity 9 The patient did not perform the activity before the current illness or injury 88 Not attempted due to Medical conditions or safety concerns Eating (FIM): 7 Eating (QC): 6 Grooming (FIM): 6 (use of FWW for stance in front of mirror for hair grooming and oral hygiene) Oral Hygiene (QC): 6 On/Off Footwear (QC): 6 (use of "slides" sandals for easy slip on/ off) Toileting (FIM): 6 (completes with increased time and FWW) Toileting Hygiene (QC): 7 Transfers (B, C, W/C) (FIM): 4 (min A for guiding L leg due to pain during bed mob. Pt completes sit to stand with mod I) Toilet/Commode Transfer (FIM): 6 (mod I, use of FWW, safe during funtional transfer) Toilet Transfer (QC): 6 Other Treatment Pt completes ADL/ morning routine. Pt ambulates to gym with FWW and SBA. Pt states some tightness in mid-back. Pt educated on positioning within kitchen for walker, and energy management techniques within kitchen provided- pt verbalizes understanding. Pt states she is ready for tomorrow's day pass, educated on completing daily activities within the home in order to gain confidence and encourage questions with tasks. Pt completes 15 minutes of arm bike with one rest break of 25 watt resistance. Pt states discomfort in back, declines with repositioning. Pt educated on cognitive game, encouraged to stand at table top during game. Pt completes 15 minutes in standing with minimal c/o back pain. Pt utilizes BUE to complete game, standing with good static standing balance. Pt c/o 6/10 pain in back on walk back to room. Pt sits in recliner with pillows to suit, states pain declines with rest. Pt set with call light in reach and all needs met. Education OT Patient Education: Energy conservation, Exercise program, Progress toward Goal/Update tx plan, Purpose of tx/functional activities, Rehab process, Safety issues Teaching Recipient: Patient Teaching Methods: Demonstration, Discussion Response to Teaching: Verbalize Understanding, Return Demonstration OT Short Term Goals Short Term Goals Eating(FIM): 7 (met) Grooming(FIM): 6 (met) Bathing(FIM): 4 (met) Upper Body Dressing(FIM): 3 (met) Lower Body Dressing(FIM): 3 (met) Toileting(FIM): 4 (met) Transfers (B,C,W/C) (FIM): 5 Toilet/Commode Transfer(FIM): 6 (met) Tub Transfer(FIM): 5 Shower Transfer(FIM): 5 Additional Short Term Goals: 1-Demonstrate ADL Tasks, 2-Verbalize Understanding, 3-ImproveStrength/Tye 1=Demonstrate adherence to instructed precautions during ADL tasks. 2=Patient will verbalize/demonstrate understanding of assistive devices/modifications for ADL. 3=Patient will improve strength/tolerance for activity to enable patient to perform ADL's. OT Assisted Goals Certified Art Therapist Goals Time Frame: Oct 31, 2018 Eating (FIM): 7 Eating (QC): 6 Groomin Oral Hygiene (QC): 6 Bathing(FIM): 7 Shower/Bathe Self (QC): 6 Upper Body Dressing(FIM): 7 Upper Body Dressing (QC): 6 Lower Body Dressing(FIM): 7 Lower Body Dressing (QC): 6 On/Off Footwear (QC): 6 Toileting(FIM): 7 Toileting Hygiene (QC): 6 Transfers (B,C,W/C) (FIM): 6 Toilet/Commode Transfer(FIM): 6 Toilet/Commode Transfer (QC): 6 Tub Transfer(FIM): 6 Shower Transfer(FIM): 6 Comprehension(FIM): 6 Expression (FIM): 6 Social Interaction(FIM): 6 Problem Solving(FIM): 6 Memory(FIM): 6 Additional Goals: 1-Demonstrate ADL Tasks, 2-Verbalize Understanding, 3- ImproveStrength/Tye 1=Demonstrate adherence to instructed precautions during ADL tasks. 2=Patient will verbalize/demonstrate understanding of assistive devices/modifications for ADL. 3=Patient will improve strength/tolerance for activity to enable patient to perform ADL's. OT Education/Plan Problem List/Assessment Assessment: Decreased Activ Tolerance, Impaired Bed Mobility (with pain), Impaired I ADL's, Impaired Self-Care Skills Pt presents will functional limitations affecting areas of ADLs and functional mobility with the above mentioned deficits. Pt will benefit from skilled OT services to increase independence with daily activities and safe transition to home. Discharge Recommendations Plan/Recommendations: Continue POC Therapy Discharge Recommendati: Other, See Comments Equpiment Recommendations-D/C: Bath Chair, Sock Aide, Dressing Stick Patient/Family Goals pt plans to d/c to friends' home with family and friend support. Treatment Plan/Plan of Care Treatment,Training & Education: Yes Patient would benefit from OT for education, treatment and training to promote independence in ADL's, mobility, safety and/or upper extremity function for ADL's. Plan of Care: ADL Retraining, Caregiver Training, Functional Mobility, Group Exercise/Act as Ind, UE Funct Exercise/Act Treatment Duration: Oct 31, 2018 Frequency: At least 5 of 7 days/Wk (IRF) Estimated Hrs Per Day: 1 hour per day (60-90 minutes) Agreement: Yes Rehab Potential: Good Time/GCodes Start Time: 08:45 Stop Time: 09:45 Total Time Billed (hr/min): 60 Billed Treatment Time 1 FA 2 EX 2 SHIRLEY ARIAS OTR Oct 26, 2018 11:37
--- NOTE | 2018-10-26 11:48 | NUR ---
945a-EYE SURGEON contacted [employer] correctional casework specialist, Ramon to inquire about coverage for DME and post hospital services. Ramon states any needed DME and other services will be covered at 100 percent. EYE SURGEON informed Ramon of the need for a walker, shower chair and hip kit. EYE SURGEON received approval from [employer] to send information to [facility]. All DME to be delivered by Monday to hospital room. EYE SURGEON also received approval for EYE SURGEON to arrange Arianna chair transport to [facility] appointments on , if patient will agree to this mode. [id number]-EYE SURGEON met with patient to discuss [facility] appointments and to review team conference summary. As previously discussed, patient will complete a day pass tomorrow to trial home. Patient remains hesitant to discharge; however, is performing PT activities with modified independence, completing most OT activities with standby to min assist. Patient's parents will stay with her upon discharge to assist as needed. EYE SURGEON reviewed option of Arianna chair, patient is agreeable to this. EYE SURGEON contacted [facility] to inquire of availability for -. They can accommodate necessary appointments. Patient is scheduled to have follow-up with [facility] Educational Specialist at 1015 a.m. and secondary appointment with [facility] at 1215 p.m. same day. Upon further discussion patient inquires about the ability to remain in a RU past Monday. EYE SURGEON informed patient that insurance may no longer approve additional days based on current functionality. Patient intends to contact insurance healthcare consultant to request more time in ARU. EYE SURGEON spoke with insurance processing clerk, Ramon who believes additional days will not be approved. EYE SURGEON discussed recommendation of either home health services versus outpatient therapy, patient is agreeable to either is transportation can be provided for outpatient services. EYE SURGEON contacted [place] [facility] outpatient therapy services; however, they will not have times available for same day PT and OT evaluations for approximately 1.5 weeks. Due to patient's anxiety, EYE SURGEON believes patient will benefit from services immediately after discharge. EYE SURGEON will arrange home health services. Unless insurance healthcare consultant proves additional days, discharge plans will proceed on Monday to a friend of the patient's home at [address] [place], [place].
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
[2018-10-26 18:58] VITALS: BP 105/64
--- NOTE | 2018-10-26 19:26 | NUR ---
bedside report received from GREG BO, assume care of pt
--- NOTE | 2018-10-26 20:47 | NUR ---
pt took Colace & Jami refused miralax
--- NOTE | 2018-10-26 20:50 | NUR ---
assessments & interventions completed, see assessments & interventions
--- NOTE | 2018-10-26 22:44 | NUR ---
c/o pain level 7/10 on numeric scale, oxyir 10mg po given
--- NOTE | 2018-10-26 23:30 | NUR ---
resting quietly in bed, pain level 0/10 on flacc scale
[2018-10-27] MEDS: ACETAMINOPHEN 325 MG TABLET PO SCH ×4 (00:19→23:26)
--- NOTE | 2018-10-27 00:19 | NUR ---
scheduled Tylenol 650mg po pain level 0/10 on flacc scale
--- NOTE | 2018-10-27 00:50 | NUR ---
resting quietly in bed, pain level 0/10 on flacc scale
[2018-10-27 06:10] VITALS: BP 102/68
--- NOTE | 2018-10-27 06:16 | NUR ---
scheduled Tylenol 650mg po given rates pain level 5/10 on numeric scale
--- NOTE | 2018-10-27 06:48 | NUR ---
resting quietly in bed, pain level 0/10 on flacc scale
--- NOTE | 2018-10-27 07:28 | NUR ---
bedside report given to SAM BO
--- NOTE | 2018-10-27 07:57 | Physical Therapy Daily Note ---
PT Daily Note-Current Subjective Pt laying Supine in bed upon arrival. Pt agrees to PT before Day Pass today. Pain Numeric Pain Scale: 4 Location: Left Location Body Site: Hip Pain Description: Ache, Tightness Mental Status Patient Orientation: Person, Place, Time, Situation Transfers Therapy Code Descriptions/Definitions Functional [place] Measure: 0=Not Assessed/NA 4=Minimal Assistance 1=Total Assistance 5=Supervision or Setup 2=Maximal Assistance 6=Modified [place] 3=Moderate Assistance 7=Complete [place] Therapy Quality Codes: 6 Independent with activity with or without an assistive device 5 Patient requires set up or clean up by helper. Patient completes activity by themselves 4 Supervision or touching assist (CGA). [place] provide cues , steadying assist 3 The helper provides less than half the effort to complete the activity 2 The helper provides more than half the effort to complete the activity 1 Dependent. The helper does all the effort to complete an activity 7 Patient refused to complete or attempt activity 9 The patient did not perform the activity before the current illness or injury 88 Not attempted due to Medical conditions or safety concerns Scootin Supine to/from Sit: 5 Sit to Lying (QC): 4 Weight Bearing Right Lower Extremity: Right Weight Bearing/Tolerated Left Lower Extremity: Left Weight Bearing/Tolerated Exercises Supine Ex: Ankle pumps, Quad Set, Glut sets, Heel Slides, Straight leg raise, Hip abd/add Supine Reps: 20 Seated Therapy Exercises: Ankle pumps, Long arc quads, Hip flexion, Kicking activity Seated Reps: 20 Treatments Pt completes Supine EX as well as Seated EX at EOB. Pt able to transfer to EOB and will use restroom at end of tx. Pt has all needs met, call light next to pt. Pt is Ad mariam in room. Assessment Current Status: Good Progress Pt tolerates tx well. PT Short Term Goals Short Term Goals Time Frame: Oct 18, 2018 Transfers (B,C,W/C) (FIM): 5 Gait (FIM): 4 Distance (FIM): 3=150 ft Gait Assistive Device: Cane Single Point PT Physician Assistant Goals Care Home Goals PT Care Home Goals Time Frame: Oct 25, 2018 Transfers (B,C,W/C) (FIM): 7 Sit to Lying (QC): 6 Lying-Sitting on Side/Bed(QC): 6 Sit to Stand (QC): 6 Rollin Roll Left to Right (QC): 6 Chair/Pzx-dt-Uxujl Xfer(QC): 6 Car Transfer (QC): 6 Does the Patient Walk: Yes Gait (FIM): 6 Gait distance (FIM): 3=150 ft Walk 10 feet (QC): 6 Walk 10ft-Uneven Surface(QC): 6 Walk 50ft with 2 Turns (QC): 6 Walk 150 ft (QC): 6 Gait Level of Assist: 6 Gait Assistive Device: Cane Single Point (or least restrictive safe device) Does the Pt use WC or Scooter?: No Stairs (FIM): 6 # of Steps: 12 1 Step (curb) (QC): 6 4 Steps (QC): 6 12 Steps (QC): 6 Picking up an Object (QC): 88 PT Plan Problem List Problem List: Activity Tolerance, Functional Strength Treatment/Plan Treatment Plan: Continue Plan of Care Treatment Plan: Bed Mobility, Education, Functional Activity Tye, Functional Strength, Group Therapy, Gait, Safety, Therapeutic Exercise, Transfers Treatment Duration: Oct 25, 2018 Frequency: At least 5 of 7 days/Wk (IRF) Estimated Hrs Per Day: 1.5 hours per day Patient and/or Family Agrees t: Yes Safety Risks/Education Patient Education: Transfer Techniques, Correct Positioning, Safety Issues Teaching Recipient: Patient Teaching Methods: Discussion Response to Teaching: Verbalize Understanding Time/GCodes Time In: 710 Time Out: 730 Total Billed Treatment Time: 20 Total Billed Treatment 1, EX (20m) DAVEY JENKINS UTILITY LOCATOR Oct 27, 2018 07:57
[2018-10-27] MEDS: POLYETHYLENE GLYCOL 17 GM (MIRALAX) PACK PO SCH ×2 (08:34→23:33)
[2018-10-27] MEDS: BISACODYL 5 MG (DULCOLAX) TABLET PO SCH (08:34)
[2018-10-27] MEDS: SENNOSIDES 8.6 MG (SENOKOT) TAB PO SCH ×2 (08:39→23:33)
[2018-10-27] MEDS: APIXABAN 2.5 MG (ELIQUIS) TABLET PO SCH ×2 (08:39→23:25)
[2018-10-27] MEDS: DOCUSATE SODIUM 100 MG (COLACE) CAP PO SCH ×2 (08:39→23:33)
--- NOTE | 2018-10-27 19:21 | NUR ---
bedside report recieved from SAM RN, pt on day pass with family
--- NOTE | 2018-10-27 23:00 | NUR ---
pt returned from day pass ambulatory with mother by her side said all went well
[2018-10-27 23:25] VITALS: BP 124/77
--- NOTE | 2018-10-27 23:26 | NUR ---
pt refused Colace, miralax & Senokot, rates pain level 6/10 on numeric scale given oxyir 5mg & scheduled Tylenol 650mg
--- NOTE | 2018-10-27 23:30 | NUR ---
assessments & interventions completed see assessments & interventions
[2018-10-28] MEDS: ACETAMINOPHEN 325 MG TABLET PO SCH ×4 (06:00→18:29)
--- NOTE | 2018-10-28 06:16 | NUR ---
scheduled tylenol 650mg given, pain level 5/10 on numeric scale
--- NOTE | 2018-10-28 06:48 | NUR ---
resting quietly in bed, pain level 0/10 on flacc scale
[2018-10-28 06:55] VITALS: BP 106/65
--- NOTE | 2018-10-28 07:22 | NUR ---
bedside report given to SAM BO
[2018-10-28] MEDS: BISACODYL 5 MG (DULCOLAX) TABLET PO SCH (07:41)
[2018-10-28] MEDS: POLYETHYLENE GLYCOL 17 GM (MIRALAX) PACK PO SCH ×2 (07:41→21:00)
[2018-10-28] MEDS: DOCUSATE SODIUM 100 MG (COLACE) CAP PO SCH ×2 (10:18→21:00)
[2018-10-28] MEDS: SENNOSIDES 8.6 MG (SENOKOT) TAB PO SCH ×2 (10:18→21:00)
[2018-10-28] MEDS: APIXABAN 2.5 MG (ELIQUIS) TABLET PO SCH ×2 (10:18→20:48)
[2018-10-28] MEDS ORDERED: APIX2.5T PO (13:41)
[2018-10-28] MEDS ORDERED: ACET325T49 PO (13:41)
[2018-10-28] MEDS ORDERED: ALPR0.254 PO (13:41)
[2018-10-28] MEDS ORDERED: OXC5T PO (13:41)
[2018-10-28] MEDS ORDERED: DOCU100C37 PO (13:41)
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
[2018-10-28 16:38] VITALS: BP 108/74
--- NOTE | 2018-10-28 19:17 | NUR ---
bedside report received from SAM BO, assume care of pt
--- NOTE | 2018-10-28 20:48 | NUR ---
refused Colace, , miralax and Senokot
--- NOTE | 2018-10-28 20:50 | NUR ---
assessments & interventions completed, see assessments & interventions
[2018-10-29] MEDS: ACETAMINOPHEN 325 MG TABLET PO SCH ×4 (00:08→18:25)
--- NOTE | 2018-10-29 00:08 | NUR ---
scheduled Tylenol 650mg given, pain level 5/10 on numeric scale
--- NOTE | 2018-10-29 00:40 | NUR ---
resting quietly in bed, pain level 0/10 on flacc scale
[2018-10-29 05:34] LABS: BASOPHILS % (AUTO) 0 % (0-10); EOSINOPHILS # (AUTO) 0.2 10^3/uL (0.0-0.3); EOSINOPHILS % (AUTO) 2 % (0-10); HEMATOCRIT 36 % (35-52); HEMOGLOBIN 12.1 G/DL (11.5-16.0); LYMPHOCYTES # (AUTO) 3.3 X 10^3 (1.0-4.0); LYMPHOCYTES % (AUTO) 38 % (12-44); MEAN CORPUSCULAR HEMOGLOBIN 28 PG (25-34); MEAN CORPUSCULAR HGB CONC 34 G/DL (32-36); MEAN CORPUSCULAR VOLUME 83 FL (80-99); MEAN PLATELET VOLUME 9.6 FL (7.4-10.4); MONOCYTES # (AUTO) 0.5 X 10^3 (0.0-1.0); MONOCYTES % (AUTO) 6 % (0-12); NEUTROPHILS # (AUTO) 4.7 X 10^3 (1.8-7.8); NEUTROPHILS % (AUTO) 54 % (42-75); PLATELET COUNT 499 10^3/uL (130-400); RED CELL DISTRIBUTION WIDTH 13.7 % (10.0-14.5); WHITE BLOOD COUNT 8.7 10^3/uL (4.3-11.0)
[2018-10-29 05:40] VITALS: BP 103/67
[2018-10-29 05:51] LABS: ALANINE AMINOTRANSFERASE 16 U/L (0-55); ALBUMIN 3.9 GM/DL (3.2-4.5); ALKALINE PHOSPHATASE 108 U/L (40-136); BILIRUBIN,TOTAL 0.3 MG/DL (0.1-1.0); BUN/CREATININE RATIO 20; CALCIUM 9.5 MG/DL (8.5-10.1); CARBON DIOXIDE 18 MMOL/L (21-32); CHLORIDE 109 MMOL/L (98-107); CREATININE SERUM 0.66 MG/DL (0.60-1.30); GFR ESTIMATED > 60; GLUCOSE 86 MG/DL (70-105); POTASSIUM 3.7 MMOL/L (3.6-5.0); SODIUM 138 MMOL/L (135-145); TOTAL PROTEIN 6.9 GM/DL (6.4-8.2)
--- NOTE | 2018-10-29 06:08 | NUR ---
scheduled Tylenol 650mg po given, pain level 6/10 on numeric scale
--- NOTE | 2018-10-29 06:41 | NUR ---
resting quietly in bed, pain level 0/10 on flacc scale
--- NOTE | 2018-10-29 07:26 | NUR ---
bedside report given to SAM BO
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
[2018-10-29] MEDS: POLYETHYLENE GLYCOL 17 GM (MIRALAX) PACK PO SCH ×2 (09:05→21:35)
[2018-10-29] MEDS: BISACODYL 5 MG (DULCOLAX) TABLET PO SCH (09:05)
[2018-10-29] MEDS: DOCUSATE SODIUM 100 MG (COLACE) CAP PO SCH ×2 (09:06→21:35)
[2018-10-29] MEDS: SENNOSIDES 8.6 MG (SENOKOT) TAB PO SCH ×2 (09:06→21:35)
[2018-10-29] MEDS: APIXABAN 2.5 MG (ELIQUIS) TABLET PO SCH ×2 (09:06→21:31)
--- NOTE | 2018-10-29 10:23 | Occupational Ther Daily Note ---
OT Current Status-Daily Note Subjective Pt seen in recliner chair, breakfast ate. Pt c/o pain, stated she took pain medication prior to tx session. Pt agreeable to OT tx session. Mental Status/Objective Patient Orientation: Normal For Age Therapy Code Descriptions/Definitions Functional [place] Measure: 0=Not Assessed/NA 4=Minimal Assistance 1=Total Assistance 5=Supervision or Setup 2=Maximal Assistance 6=Modified [place] 3=Moderate Assistance 7=Complete [place] ADL-Treatment Therapy Code Descriptions/Definitions Functional [place] Measure: 0=Not Assessed/NA 4=Minimal Assistance 1=Total Assistance 5=Supervision or Setup 2=Maximal Assistance 6=Modified [place] 3=Moderate Assistance 7=Complete [place] Therapy Quality Codes: 6 Independent with activity with or without an assistive device 5 Patient requires set up or clean up by helper. Patient completes activity by themselves 4 Supervision or touching assist (CGA). [place] provide cues , steadying a ssist 3 The helper provides less than half the effort to complete the activity 2 The helper provides more than half the effort to complete the activity 1 Dependent. The helper does all the effort to complete an activity 7 Patient refused to complete or attempt activity 9 The patient did not perform the activity before the current illness or injury 88 Not attempted due to Medical conditions or safety concerns Eating (FIM): 7 Eating (QC): 6 Grooming (FIM): 6 (use of FWW at sink to complete oral hygiene and hair grooming) Oral Hygiene (QC): 6 (Use of FWW for balance at sink) Bathing (FIM): 5 (Pt completes with increased IND, able to complete all areas while seated on shower bench, intermittend SUP for safety due to stance during kourtney hygiene) Shower/Bathe Self (QC): 4 (Intermittent SUP due to safety in standing while wet) Upper Body (FIM): 6 (seated on shower chair) Upper Body Dressing (QC): 6 Lower Body Dressing (FIM): 6 (Use of AE (dressing stick, sock aide) during dressing tasks while seated on shower chair.) Lower Body Dressing (QC): 6 On/Off Footwear (QC): 6 (Use of sock sukhdev; Pt utilizes "slide" sandals for wear) Toileting (FIM): 6 (Use of FWW in standing while pulling up pants.) Toileting Hygiene (QC): 6 Transfers (B, C, W/C) (FIM): 5 (Pt mod I all sit to stand transfers. Pt completed bed mobility with cues for protecting back, modified sleeping position completed with adherence to back precautions to decrease pain during sleep.) Toilet/Commode Transfer (FIM): 6 (Use of FWW) Toilet Transfer (QC): 6 Tub Transfer(FIM): 5 (SBA for shower chair transfers. Pt demonstrates safe transfer technique with use of FWW. Pt demonstrates ability to sit on tub bench without use of grab bars or handlebar to simulate post-hospitalization environment. Pt safe with transfer with SBA.) Shower Transfer(FIM): 5 Other Treatment Pt states she had a good weekend and good experience on her pass Monday. Pt states she is only concerned with pain management at this date, no concerns of I/ADL tasks within home. Education OT Patient Education: Correct positioning, Modified ADL techniques, Progress toward Goal/Update tx plan, Purpose of tx/functional activities, Rehab process, Safety issues, Transfer techniques, Use of adapted equipment Teaching Recipient: Patient Teaching Methods: Demonstration, Discussion Response to Teaching: Verbalize Understanding, Return Demonstration OT Short Term Goals Short Term Goals Eating(FIM): 7 (met) Grooming(FIM): 6 (met) Bathing(FIM): 4 (met) Upper Body Dressing(FIM): 3 (met) Lower Body Dressing(FIM): 3 (met) Toileting(FIM): 4 (met) Transfers (B,C,W/C) (FIM): 5 Toilet/Commode Transfer(FIM): 6 (met) Tub Transfer(FIM): 5 (met) Shower Transfer(FIM): 5 Additional Short Term Goals: 1-Demonstrate ADL Tasks, 2-Verbalize Underst anding, 3-ImproveStrength/Tye 1=Demonstrate adherence to instructed precautions during ADL tasks. 2=Patient will verbalize/demonstrate understanding of assistive devices/modifications for ADL. 3=Patient will improve strength/tolerance for activity to enable patient to perform ADL's. OT Retirement Goals Retirement Goals Time Frame: Oct 31, 2018 Eating (FIM): 7 (met) Eating (QC): 6 (met) Groomin Oral Hygiene (QC): 6 (met) Bathing(FIM): 7 Shower/Bathe Self (QC): 6 Upper Body Dressing(FIM): 7 Upper Body Dressing (QC): 6 (met) Lower Body Dressing(FIM): 7 Lower Body Dressing (QC): 6 On/Off Footwear (QC): 6 Toileting(FIM): 7 Toileting Hygiene (QC): 6 Transfers (B,C,W/C) (FIM): 6 Toilet/Commode Transfer(FIM): 6 Toilet/Commode Transfer (QC): 6 Tub Transfer(FIM): 6 Shower Transfer(FIM): 6 Comprehension(FIM): 6 Expression (FIM): 6 Social Interaction(FIM): 6 Problem Solving(FIM): 6 Memory(FIM): 6 Additional Goals: 1-Demonstrate ADL Tasks, 2-Verbalize Understanding, 3- ImproveStrength/Tye 1=Demonstrate adherence to instructed precautions during ADL tasks. 2=Patient will verbalize/demonstrate understanding of assistive devices/modifications for ADL. 3=Patient will improve strength/tolerance for activity to enable patient to perform ADL's. OT Education/Plan Problem List/Assessment Assessment: Decreased Activ Tolerance, Impaired I ADL's, Impaired Self-Care Skills Pt presents will functional limitations affecting areas of ADLs and functional mobility with the above mentioned deficits. Pt will benefit from skilled OT services to increase independence with daily activities and safe transition to home. Discharge Recommendations Plan/Recommendations: Continue POC Therapy Discharge Recommendati: Other, See Comments Equpiment Recommendations-D/C: Bath Chair, Hip Kit, Walker Bag or Basket Comment Pt plans to d/c to friends home in [place]. Pt will have support of both parents and friends. Treatment Plan/Plan of Care Treatment,Training & Education: Yes Patient would benefit from OT for education, treatment and training to promote independence in ADL's, mobility, safety and/or upper extremity function for ADL's. Plan of Care: ADL Retraining, Caregiver Training, Functional Mobility, Group Exercise/Act as Ind, UE Funct Exercise/Act Treatment Duration: Oct 31, 2018 Frequency: At least 5 of 7 days/Wk (IRF) Estimated Hrs Per Day: 1 hour per day (60-90 minutes) Agreement: Yes Rehab Potential: Good Time/GCodes Start Time: 10:00 Stop Time: 11:06 Total Time Billed (hr/min): 66 Billed Treatment Time 1 ADL x4 (66) SHIRLEY ARIAS OTR Oct 29, 2018 10:23
--- NOTE | 2018-10-29 12:07 | Physical Therapy Daily Note ---
PT Daily Note-Current Subjective Agrees to Rx. Thanks this VP PACKAGING stating "these exercises were very hard the 1st time you had me do them but very soon after I was so much stronger and have continued to build that" Pain Numeric Pain Scale: 2 Location: Left Location Body Site: Hip Pain Description: Pressure Mental Status Patient Orientation: Normal For Age Transfers Therapy Code Descriptions/Definitions Functional [place] Measure: 0=Not Assessed/NA 4=Minimal Assistance 1=Total Assistance 5=Supervision or Setup 2=Maximal Assistance 6=Modified [place] 3=Moderate Assistance 7=Complete [place] Therapy Quality Codes: 6 Independent with activity with or without an assistive device 5 Patient requires set up or clean up by helper. Patient completes activity by themselves 4 Supervision or touching assist (CGA). [place] provide cues , steadying assist 3 The helper provides less than half the effort to complete the activity 2 The helper provides more than half the effort to complete the activity 1 Dependent. The helper does all the effort to complete an activity 7 Patient refused to complete or attempt activity 9 The patient did not perform the activity before the current illness or injury 88 Not attempted due to Medical conditions or safety concerns Transfers (B, C, W/C) (FIM): 6 Scootin Rollin Roll Left to Right (QC): 6 Supine to/from Sit: 6 Sit to/from Stand: 6 Sit to Lying (QC): 6 Sit to Stand (QC): 6 Chair/Fui-pd-Pfeni Xfer(QC): 6 Bed to/from Chair: 6 Car Transfer (QC): 6 all movements are slow but indep Weight Bearing Right Lower Extremity: Right Weight Bearing/Tolerated Left Lower Extremity: Left Weight Bearing/Tolerated Gait Training Does the Patient Walk?: Yes Gait (FIM): 6 Distance (FIM): 3=150 ft (200x2) Walk 10 feet (QC): 6 Walk 50 ft with 2 Turns(QC): 6 Walk 150 ft (QC): 6 Walking 10ft/uneven surface-QC: 6 Gait Level of Assist: 6 Gait Persons Needed: 0 Gait Assistive Device: FWW slow with uneven step length , no LOB, careful Stair Training Stair Training: Handrails/: 1 handrail (and VIOLIN MECHANIC), 2 handrails #of Steps: 4 1 Step (curb) (QC): 4 4 Steps (QC): 4 Stairs: Pattern: Step to Level of Assist: 4 (VIOLIN MECHANIC and rail ) Balance Special Test Comments unsafe to trial, Exercises Supine Ex: Bridging (for scooting), Ankle pumps, Quad Set, Rolling, Glut sets, Heel Slides, Short Arc Quads, Scooting, Straight leg raise (x3 indep), Hip abd/add Supine Reps: 15 Assessment Current Status: Excellent Progress meets goals PT Short Term Goals Short Term Goals Time Frame: Oct 18, 2018 Transfers (B,C,W/C) (FIM): 5 Gait (FIM): 4 Distance (FIM): 3=150 ft Gait Assistive Device: Cane Single Point PT Half-Way Goals Half-Way Goals PT [employer] Goals Time Frame: Oct 25, 2018 Transfers (B,C,W/C) (FIM): 7 Sit to Lying (QC): 6 Lying-Sitting on Side/Bed(QC): 6 Sit to Stand (QC): 6 Rollin Roll Left to Right (QC): 6 Chair/Zus-ny-Wtiwo Xfer(QC): 6 Car Transfer (QC): 6 Does the Patient Walk: Yes Gait (FIM): 6 Gait distance (FIM): 3=150 ft Walk 10 feet (QC): 6 Walk 10ft-Uneven Surface(QC): 6 Walk 50ft with 2 Turns (QC): 6 Walk 150 ft (QC): 6 Gait Level of Assist: 6 Gait Assistive Device: Cane Single Point (or least restrictive safe device) Does the Pt use WC or Scooter?: No Stairs (FIM): 6 # of Steps: 12 1 Step (curb) (QC): 6 4 Steps (QC): 6 12 Steps (QC): 6 Picking up an Object (QC): 88 PT Plan Treatment/Plan Treatment Plan: Continue Plan of Care Treatment Plan: Bed Mobility, Education, Functional Activity Tye, Functional Strength, Group Therapy, Gait, Safety, Therapeutic Exercise, Transfers Treatment Duration: Oct 25, 2018 Frequency: At least 5 of 7 days/Wk (IRF) Estimated Hrs Per Day: 1.5 hours per day Patient and/or Family Agrees t: Yes Safety Risks/Education Patient Education: Gait Training, Transfer Techniques, Steps, Correct Positioning, Disease Process, Safety Issues Teaching Recipient: Patient Teaching Methods: Demonstration, Discussion Response to Teaching: Verbalize Understanding, Return Demonstration, Reinforcement Needed discussed pts anxiety issues as well as min to building exposure to anxiety environments etc. Time/GCodes Time In: 1100 Time Out: 1200 Total Billed Treatment Time: 60 Total Billed Treatment 1,GT20m,FA25m,EX15m RAUL KEITA VP [employer]AG[employer] Oct 29, 2018 12:07
--- NOTE | 2018-10-29 13:38 | NUR ---
Provided confirmation to work comp Ramon LEVIN in regards to discharge plan, i.e., patient to discharge prior to appointments, tomorrow, Monday, October,. CM agreeable to this plan. CM did state work comp will cover the cost of prescriptions as they relate to incident/illness; however, work comp will not cover medication associated with pre-existing conditions; will notify patient.
--- NOTE | 2018-10-29 14:42 | Therapy Group Daily Note ---
Therapy Daily Group Note Patient Education Topic Other List Below (ARU orientation review, bed mobility and TRF techniques) Session Ratio (pt:therapist): 3:1 Goal of Session: Education on ARU Expectations, Other (list) (understanding bed mobility and TRFs) Goal Met for this Session: Yes Pt Benefit of Group: Increased Functional Safety, Increased Functional Strength, Other (improved TRF and bed mob skills) Other/Notes Pt. participated in group PT OT session . Pt. ambulated with escort only. Pt. was social introducing herself and sharing with others. ARU orientation info was shared and education was focused on ways to be more independent regarding bed mobility and TRFs . Pts. were lead in U&L extremity exercises they can do in their beds or sitting up. Pt. ambulated back to room with call ledesma at hand. Start Time: 13:00 Stop Time: 14:10 Total Billed Treatment Time: 70 Total Billed Treatment 1,GRP RAUL KEITA DIRECTOR REHABILITATION PROGRAM Oct 29, 2018 14:42
[2018-10-29 16:08] VITALS: BP 103/70
--- NOTE | 2018-10-29 16:12 | NUR ---
Patient found sitting in recliner and her mother packing patient's belongings. Medical equipment present in room, for tomorrow's dismissal. Patient states her day pass over the weekend went well; in fact,"it went better than I thought it would." Patient has scripts in hand prepared to give her friend for filling at [facility], this evening. Patient states she intends to be ready for transport tomorrow morning at 6:00A. Patient did state she has been in contact with [facility], and that a floor representative is to be in touch with her to schedule her first appointment, upon returning home. This worker to provide Dr. Rojas's clinic with [facility], for upcoming appointment, November 02. Patient does not verbalize any concerns, at this time.
[2018-10-30] MEDS: ACETAMINOPHEN 325 MG TABLET PO SCH ×2 (00:36→06:39)
[2018-10-30 06:10] VITALS: BP 98/62
[2018-10-30] MEDS: APIXABAN 2.5 MG (ELIQUIS) TABLET PO SCH (06:39)
[2018-10-30 06:44] VITALS: BP 98/62
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
--- NOTE | 2018-10-30 11:13 | Therapy Team Discharge Summary ---
Therapy Discharge Summary Discharge Recommendations Date of Discharge Oct 30, 2018 at 06:53 Physical Therapy Patient came to rehab with debility. Upon evaluation patient performed bed mobility with min assist, supine <-> sit with mod assist, sit <-> stand with min assist, transfers with CGA, ambulated 50' with a rolling walker with CGA (including 50' with at least 2 turns of 90 degrees and 10' over an uneven surface), no stairs. Patient has been performing bed mobility and transfer training, balance and endurance training, functional strengthening, stair training, gait training, and education. Patient has made fair progress and has met all of her usp goals except for stairs. Now, patient performs bed mobility with mod I, supine <-> sit with mod I, sit <-> stand with mod I, transfers with mod I, car transfer mod I, ambulates 200' with a rolling walker with mod I (including 50' with at least 2 turns of 90 degrees and 10' over an uneven surface), and can go up and down 4 steps using 2 handrails with CGA. Patient has been discharged from this facility and will be discharged from PT at this time. Occupational Therapy Decreased Activ Tolerance, Impaired I ADL's, Impaired Self-Care Skills PT Hand Loom Weaver Goals Hand Loom Weaver Goals PT [facility] Goals Time Frame: Oct 25, 2018 Transfers (B,C,W/C) (FIM): 7 Roll Left to Right (QC): 6 Sit to Lying (QC): 6 Lying-Sitting on Side/Bed(QC): 6 Sit to Stand (QC): 6 Chair/Fxr-ms-Ffbay Xfer(QC): 6 Car Transfer (QC): 6 Does the Patient Walk: Yes Gait (FIM): 6 Gait distance (FIM): 3=150 ft Walk 10 feet (QC): 6 Walk 10ft-Uneven Surface(QC): 6 Walk 50ft with 2 Turns (QC): 6 Walk 150 ft (QC): 6 Gait Level of Assist: 6 Gait Assistive Device: Cane Single Point (or least restrictive safe device) Does the Pt use WC or Scooter?: No Stairs (FIM): 6 # of Steps: 12 1 Step (curb) (QC): 6 4 Steps (QC): 6 12 Steps (QC): 6 Picking up an Object (QC): 88 OT [facility] Goals [facility] Goals Time Frame: Oct 31, 2018 Eating (FIM): 7 (met) Eating (QC): 6 (met) Oral Hygiene (QC): 6 (met) Grooming(FIM): 7 Bathing(FIM): 7 Shower/Bathe Self (QC): 6 Upper Body Dressing(FIM): 7 Upper Body Dressing (QC): 6 (met) Lower Body Dressing(FIM): 7 Lower Body Dressing (QC): 6 On/Off Footwear (QC): 6 Toileting(FIM): 7 Toileting Hygiene (QC): 6 Transfers (B,C,W/C) (FIM): 6 Toilet/Commode Transfer(FIM): 6 Toilet/Commode Transfer (QC): 6 Tub Transfer(FIM): 6 Shower Transfer(FIM): 6 Comprehension(FIM): 6 Expression (FIM): 6 Social Interaction(FIM): 6 Problem Solving(FIM): 6 Memory(FIM): 6 Additional Goals: 1-Demonstrate ADL Tasks, 2-Verbalize Understanding, 3- ImproveStrength/Tye 1=Demonstrate adherence to instructed precautions during ADL tasks. 2=Patient will verbalize/demonstrate understanding of assistive devices /modifications for ADL. 3=Patient will improve strength/tolerance for activity to enable patient to perform ADL's. Speech Hand Loom Weaver Goals [facility] Goals Comprehension: 6 Expression: 6 Social Interaction: 6 Problem Solvin Memory: 6 NATHANIEL JEFFREY PT Oct 30, 2018 11:13
--- NOTE | 2018-10-30 14:11 | Therapy Team Discharge Summary ---
Therapy Discharge Summary Discharge Recommendations Date of Discharge Oct 30, 2018 at 06:53 Occupational Therapy Pt admitted with FIMs of: eat 7, grooming 5, bathing 3, UB dress 1, LB dress 1, transfers 4, toileting 4. Pt and OT worked toward increased IND within I/ADL tasks through skilled treatment interventions including adaptive equipment, education, caregiver training, strengthening, and completion of ADL activities. Barriers include pain during activities. Pt plans to d/c to friends' rented home in [facility]. Pt will have support of both parents and friends. D/c FIMs include: eat 7, groom 6, bathing 5, UB dress 6, LB dress 6, toileting 6, transfers 5 with use of FWW. Pt and caregivers have demonstrated competence with training and adaptive techniques. Recommended d/c equipment: Bath Chair, Hip Kit, Walker Bag or basket, FWW. Decreased Activ Tolerance, Impaired I ADL's, Impaired Self-Care Skills PT Fdc Goals Fdc Goals PT Fdc Goals Time Frame: Oct 25, 2018 Transfers (B,C,W/C) (FIM): 7 Roll Left to Right (QC): 6 Sit to Lying (QC): 6 Lying-Sitting on Side/Bed(QC): 6 Sit to Stand (QC): 6 Chair/Urv-lg-Cgdfi Xfer(QC): 6 Car Transfer (QC): 6 Does the Patient Walk: Yes Gait (FIM): 6 Gait distance (FIM): 3=150 ft Walk 10 feet (QC): 6 Walk 10ft-Uneven Surface(QC): 6 Walk 50ft with 2 Turns (QC): 6 Walk 150 ft (QC): 6 Gait Level of Assist: 6 Gait Assistive Device: Cane Single Point (or least restrictive safe device) Does the Pt use WC or Scooter?: No Stairs (FIM): 6 # of Steps: 12 1 Step (curb) (QC): 6 4 Steps (QC): 6 12 Steps (QC): 6 Picking up an Object (QC): 88 OT Fdc Goals Fdc Goals Time Frame: Oct 31, 2018 Eating (FIM): 7 (met) Eating (QC): 6 (met) Oral Hygiene (QC): 6 (met) Grooming(FIM): 7 Bathing(FIM): 7 Shower/Bathe Self (QC): 6 Upper Body Dressing(FIM): 7 Upper Body Dressing (QC): 6 (met) Lower Body Dressing(FIM): 7 Lower Body Dressing (QC): 6 On/Off Footwear (QC): 6 Toileting(FIM): 7 Toileting Hygiene (QC): 6 Transfers (B,C,W/C) (FIM): 6 Toilet/Commode Transfer(FIM): 6 Toilet/Commode Transfer (QC): 6 Tub Transfer(FIM): 6 Shower Transfer(FIM): 6 Comprehension(FIM): 6 Expression (FIM): 6 Social Interaction(FIM): 6 Problem Solving(FIM): 6 Memory(FIM): 6 Additional Goals: 1-Demonstrate ADL Tasks, 2-Verbalize Understanding, 3- ImproveStrength/Tye 1=Demonstrate adherence to instructed precautions during ADL tasks. 2=Patient will verbalize/demonstrate understanding of assistive devices/modifications for ADL. 3=Patient will improve strength/tolerance for activity to enable patient to perform ADL's. Speech Fdc Goals Meat Scrubber Goals Comprehension: 6 Expression: 6 Social Interaction: 6 Problem Solvin Memory: 6 SHIRLEY ARIAS OTR Oct 30, 2018 14:11
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
== END 2018-10-30 06:53 | disposition home health service (06) | DRG 561 ==
PROVIDERS: ADMIT Internal Medicine; ATTEND Internal Medicine
DX: S32.412D Displaced fracture of anterior wall of left acetabulum, subsequent encounter for fracture with routine healing (principal); S32.111D Minimally displaced Zone I fracture of sacrum, subsequent encounter for fracture with routine healing; S32.392D Other fracture of left ilium, subsequent encounter for fracture with routine healing; S22.080D Wedge compression fracture of T11-T12 vertebra, subsequent encounter for fracture with routine healing; S27.321D Contusion of lung, unilateral, subsequent encounter; T81.72XD Complication of vein following a procedure, not elsewhere classified, subsequent encounter; S70.212D Abrasion, left hip, subsequent encounter; S30.810D Abrasion of lower back and pelvis, subsequent encounter; S80.211D Abrasion, right knee, subsequent encounter; S80.212D Abrasion, left knee, subsequent encounter; S90.511D Abrasion, right ankle, subsequent encounter; S90.512D Abrasion, left ankle, subsequent encounter; N92.6 Irregular menstruation, unspecified; F41.0 Panic disorder [episodic paroxysmal anxiety]; V03.10XD Pedestrian on foot injured in collision with car, pick-up truck or van in traffic accident, subsequent encounter
CPT/HCPCS: 36415; 80053; 85025